=== PATIENT | male | born 1940 | race Caucasian/White ===

== ENCOUNTER → 2017-01-24 | Outpatient (CLI) | payer BC ==
[2016-02-15 14:15] VITALS: BP 125/69
[~2017-01-24] MED LIST: ALPR0.5T PO; ASPI-482 PO; CLOP75TA PO; GLIP5TAB10 PO; INSU100I27 SQ; INSU100V13 SQ; IOHEXOL 180 MG/ML 10 ML VIAL. ONE; LISI-338 PO; LISI2.5T PO; LOVA40TA2 PO; MELO15TA23 PO; METF-620 PO; MULT-658 PO; OMEG1CAP6 PO; OXYC-323 PO; OXYC-327 PO; PANT40TA3 PO; PIOG15TA42 PO; methylPREDNISolone ACETATE 40 MG/ML VIAL. ONE; methylPREDNISolone ACETATE 80 MG/ML VIAL. ONE
--- NOTE | 2017-01-24 15:22 | PAIN ---
DATE OF SERVICE: 01/24/2017 DIAGNOSES: Lumbar radiculopathy with lumbar spinal stenosis, degenerative disk disease and post-lumbar laminectomy syndrome. HISTORY OF PRESENT ILLNESS: The patient is a 76-year-old male who returns for followup, last seen 11/2015. The patient underwent lumbar epidural steroid injection at that time with very good results. The patient reports about 90% improvement. The pain has been returning now, but only over the past month or so and has been more noticeable with walking and standing, change in positions. It is becoming more noticeable in the low back bilaterally, somewhat worse on the right than the left, but present in the bilateral low back and into the bilateral posterior gluteus, sometimes into the thighs, but usually just in the low back and into the right leg itself posteriorly and laterally. The patient also has some medial aspect pain in the right thigh, again it is only intermittent. The patient reports no new motor or sensory deficits, no new bowel or bladder incontinence. The patient rates his pain as an 8 on a scale of 10 at its least and its worse. The patient reports an aching, sharp, dull, tight, again across the low back, slightly worse on the right than the left and in the lower extremities is noted. The patient reports it awakens him from sleep only very rarely. He sleeps fairly well, about 6 hours a night, not usually a problem for him with awakening from the sleep. The patient reports no loss of motor function, but some increased fatigability in the right leg with walking. PAST MEDICAL HISTORY: Significant for hypertension, arthritis, COPD, stroke and diabetes. PREVIOUS SURGERY: Includes bilateral knee replacements. Two shoulder replacements and 2 lumbar laminectomies. Aortic valve replacement and redo aortic valve replacement in the past. CURRENT MEDICATIONS: Completed in full, well documented and updated on the patient's chart. ALLERGIES: The patient has no known drug allergies. FAMILY HISTORY: Significant for diabetes only. SOCIAL HISTORY: The patient does not drink, does not smoke. He is single, currently retired and lives locally in [place], [place]. REVIEW OF SYSTEMS: The patient's review of systems is positive for those items mentioned in history of present illness. All systems reviewed and otherwise negative. It is complete, full and well documented on the patient's chart. PHYSICAL EXAMINATION: VITAL SIGNS: Today, the patient's blood pressure is 145/106, pulse 66, respirations are 20, temperature 97.6 degrees Fahrenheit, weight is 199 pounds, height is 5 feet 9 inches. GENERAL: The patient is awake, alert, oriented, appropriate, very pleasant demeanor. HEENT: Head shows normocephalic, atraumatic. Extraocular movements are intact and symmetrical. Oral cavity shows mucous membranes are moist and pink. Dentition is intact. NECK: Shows anterior throat supple without palpable lymphadenopathy noted. Swallow reflex is symmetrical. CHEST: Shows normal inspection. Breath sounds are clear to auscultation bilaterally. HEART: Shows S1 and S2 clear. ABDOMEN: Soft, nontender, nondistended. No palpable organomegaly is noted. No rebound or guarding demonstrated. BACK: The patient's back shows spine grossly midline, some flattening of lumbar lordotic curvature is noted with a well-healed surgical scar in the lumbar distribution. Lumbar paraspinous musculatures symmetrical, mildly tender to palpation bilaterally with deeper palpation, but only diffusely and throughout the upper, middle and lower distribution without radiation. No tenderness over the spinous processes, sacrum or sacroiliac regions with palpation. LOWER EXTREMITIES: Showed deep tendon reflexes at 1+ in the patellar and tendo calcaneus tendons are equal. Motor exam is strong with approximately 4/5 that is on the left with dorsiflexion, extension and 5/5 on the right. Peripheral pulses are 1+ posterior tibial and dorsalis pedis pulses. No peripheral edema is noted. No clubbing, no cyanosis. Lower extremities are warm and dry to touch, equal in color and appearance. The patient is able to stand, stand on her toes without difficulty or loss of balance, walks with a normal-appearing gait, does not appear to favor the right lower extremity ambulating, not using any assistive devices. Options were discussed with the patient and the patient's old chart was reviewed, as his current medication regimen updated, current review of systems updated today as well, and we will proceed with a lumbar epidural steroid injection today. He has done very well with these in the past. Risks were again discussed including, but not limited to bleeding, infection, possibility of epidural hematoma, subsequent neurologic compromise, dural puncture, headaches, spinal cord and/or nerve damage, side effects of steroid medication and poor results regarding pain control. The patient understands and wishes to proceed. The patient will return to clinic in approximately 2 weeks for followup. He was counseled on return appointment, activity levels and side effects to be aware of. DIAGNOSES: Lumbar radiculopathy with lumbar degenerative disk disease, spinal stenosis and post-lumbar laminectomy syndrome. PROCEDURE: Lumbar epidural steroid injection in translaminar approach at the L3-L4 level using C-arm fluoroscopic guidance under sterile prep and drape using a local anesthetic. MEDICATION INJECTED: Total of 120 mg Depo-Medrol, plus 10 mL of preservative-free normal saline, 2 mL of Isovue for contrast. CONDITION AT DISCHARGE: Stable. The patient tolerated procedure well, had no complications. LEXY ANTOINE MD DR: AMBER/celia JOB#: [id number] / [id number]
== END | disposition home or self-care (01) ==
LOC: PNCL 11:27
PROVIDERS: ATTEND Anesthesiology
DX: M54.16 Radiculopathy, lumbar region (principal); M96.1 Postlaminectomy syndrome, not elsewhere classified
CPT/HCPCS: 62323; J1030; J1040

== ENCOUNTER 2017-05-29 11:28 | Emergency (ER) | payer BC ==
[2017-05-29] MEDS: diphenhydrAMINE 50 MG/ML VIAL IVP ×2 (13:00)
[2017-05-29] MEDS: IV NORMAL SALINE 1000ML BAG 1,000 ML IV ×2 (13:00)
[2017-05-29] MEDS: KETOROLAC 30 MG/ML INJ. IV ×2 (13:00)
== END 2017-05-29 14:55 | disposition home or self-care (01) ==
LOC: ER 11:28
DX: R51 Headache (principal); E11.9 Type 2 diabetes mellitus without complications; K21.9 Gastro-esophageal reflux disease without esophagitis; I10 Essential (primary) hypertension; E78.00 Pure hypercholesterolemia, unspecified; Z86.73 Personal history of transient ischemic attack (TIA), and cerebral infarction without residual deficits; M19.90 Unspecified osteoarthritis, unspecified site; Z79.02 Long term (current) use of antithrombotics/antiplatelets
CPT/HCPCS: 70450; 93005; 96361; 96374; 96375; 99284-25; J1200; J1885; J7030

== ENCOUNTER → 2017-07-03 | Outpatient (CLI) | payer BC ==
[2017-07-03 09:08] LABS: ADD MAN DIFF? NO
[2017-07-03 09:19] LABS: BASO # 0.1 x10^3/uL (0.0-0.2); BASO % 1 % (0-3); EOS # 0.3 x10^3/uL (0.0-0.7); EOS % 4 % (0-3); HEMOGLOBIN 15.5 g/dL (13.0-17.5); LYMPH # 2.3 x10^3/uL (1.0-4.8); LYMPH % 29 % (24-48); MEAN CORPUSCULAR HEMOGLOBIN 28 pg (25-35); MEAN CORPUSCULAR HGB CONC 33 g/dL (31-37); MEAN CORPUSCULAR VOLUME 84 fL (79-100); MONO # 0.7 x10^3/uL (0.0-1.1); MONO % 9 % (0-9); NEUT # 4.5 x10^3uL (1.8-7.7); NEUT % 57 % (31-73); PLATELET COUNT 210 x10^3/uL (140-400); RED CELL DISTRIBUTION WIDTH 14.1 % (11.5-14.5); WHITE BLOOD COUNT 7.9 x10^3/uL (4.0-11.0)
[2017-07-03 09:42] LABS: ANION GAP 9 (6-14); BLOOD UREA NITROGEN 20 mg/dL (8-26); CALCIUM 9.5 mg/dL (8.5-10.1); CARBON DIOXIDE 27 mmol/L (21-32); CHLORIDE 102 mmol/L (98-107); GFR 72.6; GLUCOSE 186 mg/dL (70-99); POTASSIUM 4.5 mmol/L (3.5-5.1); SODIUM 138 mmol/L (136-145)
[2017-07-03] MEDS: REGADENOSON 0.4 MG/5 ML DISP.SYRIN. IV (10:38)
== END | disposition home or self-care (01) ==
LOC: NM 08:57
DX: I48.0 Paroxysmal atrial fibrillation (principal)
CPT/HCPCS: 36415; 78452; 80048; 85025; 93017; 96374; 96375; 96376; A9500; J2785

== ENCOUNTER 2017-08-20 08:24 | Observation (INO) | payer BC ==
[2017-08-20 09:03] LABS: ADD MAN DIFF? NO
[2017-08-20 09:08] LABS: BASO # 0.1 x10^3/uL (0.0-0.2); BASO % 1 % (0-3); EOS # 0.2 x10^3/uL (0.0-0.7); EOS % 3 % (0-3); HEMOGLOBIN 14.2 g/dL (13.0-17.5); LYMPH # 1.6 x10^3/uL (1.0-4.8); LYMPH % 23 % (24-48); MEAN CORPUSCULAR HEMOGLOBIN 29 pg (25-35); MEAN CORPUSCULAR HGB CONC 35 g/dL (31-37); MEAN CORPUSCULAR VOLUME 83 fL (79-100); MONO # 0.6 x10^3/uL (0.0-1.1); MONO % 9 % (0-9); NEUT # 4.6 x10^3uL (1.8-7.7); NEUT % 64 % (31-73); PLATELET COUNT 196 x10^3/uL (140-400); RED BLOOD COUNT 4.96 x10^6/uL (4.30-5.70); WHITE BLOOD COUNT 7.1 x10^3/uL (4.0-11.0)
[2017-08-20 09:14] LABS: ANION GAP 8 (6-14); BLOOD UREA NITROGEN 25 mg/dL (8-26); BUN/CREATININE RATIO 23 (6-20); CALCIUM 9.5 mg/dL (8.5-10.1); CARBON DIOXIDE 26 mmol/L (21-32); CHLORIDE 102 mmol/L (98-107); CREATININE 1.1 mg/dL (0.7-1.3); GFR 65.1; GLUCOSE 166 mg/dL (70-99); POTASSIUM 4.5 mmol/L (3.5-5.1); SODIUM 136 mmol/L (136-145)
[2017-08-20 09:19] LABS: ALBUMIN 3.8 g/dL (3.4-5.0); ALK PHOS 55 U/L (46-116); ALT (SGPT) 53 U/L (16-63); AST (SGOT) 26 U/L (15-37); TOTAL BILIRUBIN 0.7 mg/dL (0.2-1.0); TOTAL PROTEIN 7.5 g/dL (6.4-8.2)
[2017-08-20 09:20] LABS: PROTHROMBIN TIME PATIENT 12.8 SEC (11.7-14.0)
[2017-08-20] MEDS: IV NORMAL SALINE 1000ML BAG 1,000 ML IV ×2 (09:20→15:15)
[2017-08-20] MEDS: ONDANSETRON PF 4 MG/2 ML VIAL. IV (09:21)
[2017-08-20] MEDS: MECLIZINE HCL 12.5 MG TABLET. PO (09:21)
[2017-08-20 09:24] LABS: TROPONINI < 0.017 ng/mL (0.000-0.055)
[2017-08-20 09:26] LABS: THYROID STIM HORMONE (TSH) 1.706 uIU/mL (0.358-3.74)
[2017-08-20 09:28] LABS: NT-PRO BNP 60 pg/mL (0-449)
[2017-08-20 09:28] LABS: CKMB MASS 1.8 ng/mL (0.0-3.6); CREATINE KINASE 56 U/L (39-308)
[2017-08-20 10:12] LABS: BILIRUBIN,URINE NEGATIVE (NEG); CLARITY,URINE CLEAR; COLOR,URINE YELLOW; GLUCOSE,URINE NEGATIVE (NEG); NITRITE,URINE NEGATIVE (NEG); PROTEIN,URINE NEGATIVE (NEG-TRACE); UROBILINOGEN,URINE 0.2 mg/dL (0.2 mg/dL)
[2017-08-20 10:20] LABS: BARBITURATES NEG (NEG); BENZODIAZEPINES POS (NEG); CANNABINOIDS NEG (NEG); COCAINE NEG (NEG); METHADONE NEG (NEG); OPIATES NEG (NEG); PHENCYCLIDINE NEG (NEG)
[2017-08-20 10:23] LABS: BACTERIA,URINE FEW /HPF (0-FEW); RBC,URINE RARE /HPF (0-2); WBC,URINE RARE /HPF (0-4)
[2017-08-20 10:32] LABS: AMPHETAMINE/METHAMPHETAMINE NEG (NEG); ETHANOL, URINE NEG (NEG)
[2017-08-20] MEDS ORDERED: ONDANSETRON PF 4 MG/2 ML VIAL. IV (12:15)
[2017-08-20] MEDS: LISINOPRIL 10 MG TABLET PO (12:36)
[2017-08-20] MEDS ORDERED: ALPRAZolam 0.5 MG TABLET PO (13:30)
[2017-08-20 13:53] LABS: POC GLUCOSE 128 mg/dL (70-99)
[2017-08-20] MEDS: ASPIRIN ENTERIC COATED 81 MG TABLET.DR. PO (15:14)
[2017-08-20] MEDS: APIXABAN 5 MG TABLET. PO ×2 (15:14→20:48)
[2017-08-20] MEDS: CLOPIDOGREL BISULFATE 75 MG TABLET PO (15:14)
[2017-08-20] MEDS: PIOGLITAZONE 15 MG TABLET. PO (15:14)
[2017-08-20 17:31] LABS: POC GLUCOSE 154 mg/dL (70-99)
[2017-08-20 20:48] LABS: POC GLUCOSE 154 mg/dL (70-99)
[2017-08-20] MEDS: ATORVASTATIN CALCIUM 10 MG TABLET. PO (20:48)
[2017-08-20] MEDS: PANTOPRAZOLE 40 MG TABLET.DR. PO (20:48)
[2017-08-20] MEDS: OMEGA-3 FATTY ACIDS/FISH OIL 1,000 MG CAPSULE. PO (20:48)
[2017-08-21] MEDS: MULTIVITAMIN with MINERAL TABLET. PO (08:04)
[2017-08-21] MEDS: glipiZIDE 5 MG TABLET PO (08:04)
[2017-08-21] MEDS: OMEGA-3 FATTY ACIDS/FISH OIL 1,000 MG CAPSULE. PO (08:04)
[2017-08-21] MEDS: ASPIRIN ENTERIC COATED 81 MG TABLET.DR. PO (08:04)
[2017-08-21] MEDS: CLOPIDOGREL BISULFATE 75 MG TABLET PO (08:04)
[2017-08-21] MEDS: APIXABAN 5 MG TABLET. PO (08:04)
[2017-08-21] MEDS: PIOGLITAZONE 15 MG TABLET. PO (08:05)
[2017-08-21] MEDS: LISINOPRIL 5 MG TABLET. PO (08:05)
[2017-08-21] MEDS: MELOXICAM 7.5 MG TABLET PO (08:05)
[2017-08-21 08:44] LABS: POC GLUCOSE 161 mg/dL (70-99)
[2017-08-21 08:59] LABS: ADD MAN DIFF? NO
[2017-08-21 09:03] LABS: BASO # 0.1 x10^3/uL (0.0-0.2); BASO % 1 % (0-3); EOS # 0.2 x10^3/uL (0.0-0.7); EOS % 3 % (0-3); HEMATOCRIT 40.7 % (39.0-53.0); LYMPH # 1.2 x10^3/uL (1.0-4.8); LYMPH % 17 % (24-48); MEAN CORPUSCULAR HEMOGLOBIN 29 pg (25-35); MEAN CORPUSCULAR HGB CONC 34 g/dL (31-37); MEAN CORPUSCULAR VOLUME 83 fL (79-100); MONO # 0.5 x10^3/uL (0.0-1.1); MONO % 7 % (0-9); NEUT # 5.3 x10^3uL (1.8-7.7); NEUT % 73 % (31-73); PLATELET COUNT 174 x10^3/uL (140-400); RED CELL DISTRIBUTION WIDTH 13.7 % (11.5-14.5); WHITE BLOOD COUNT 7.3 x10^3/uL (4.0-11.0)
[2017-08-21 09:19] LABS: ALBUMIN 3.3 g/dL (3.4-5.0); ALBUMIN/GLOBULIN RATIO 0.9 (1.0-1.7); ALK PHOS 48 U/L (46-116); ALT (SGPT) 44 U/L (16-63); ANION GAP 11 (6-14); AST (SGOT) 19 U/L (15-37); BLOOD UREA NITROGEN 24 mg/dL (8-26); BUN/CREATININE RATIO 20 (6-20); CALCIUM 8.5 mg/dL (8.5-10.1); CARBON DIOXIDE 24 mmol/L (21-32); CHLORIDE 105 mmol/L (98-107); CREATININE 1.2 mg/dL (0.7-1.3); GFR 58.9; GLUCOSE 223 mg/dL (70-99); POTASSIUM 4.3 mmol/L (3.5-5.1); SODIUM 140 mmol/L (136-145); TOTAL BILIRUBIN 0.7 mg/dL (0.2-1.0); TOTAL PROTEIN 6.9 g/dL (6.4-8.2)
[2017-08-21 11:17] LABS: POC GLUCOSE 160 mg/dL (70-99)
== END 2017-08-21 13:54 | disposition home or self-care (01) ==
LOC: ER 08:24 → 5 SOUTH 11:58
DX: R42 Dizziness and giddiness (principal); I10 Essential (primary) hypertension; I35.0 Nonrheumatic aortic (valve) stenosis; E11.42 Type 2 diabetes mellitus with diabetic polyneuropathy; J44.9 Chronic obstructive pulmonary disease, unspecified; E78.00 Pure hypercholesterolemia, unspecified; M48.061 Spinal stenosis, lumbar region without neurogenic claudication; E78.5 Hyperlipidemia, unspecified; M19.90 Unspecified osteoarthritis, unspecified site; I48.91 Unspecified atrial fibrillation; K21.9 Gastro-esophageal reflux disease without esophagitis; Z82.0 Family history of epilepsy and other diseases of the nervous system; Z82.49 Family history of ischemic heart disease and other diseases of the circulatory system; Z83.3 Family history of diabetes mellitus; Z86.73 Personal history of transient ischemic attack (TIA), and cerebral infarction without residual deficits; Z95.2 Presence of prosthetic heart valve
CPT/HCPCS: 36415; 70450; 70551; 71045; 80053; 80307; 81001; 82553; 82962; 83735; 83880; 84443; 84484; 85025; 85610; 93005; 96361; 96374; 97166-GO; 99285; G0378; G0379; J2405; J7030; J8597

== ENCOUNTER → 2017-09-02 | Outpatient (CLI) | payer BC ==
[2017-09-02 10:17] LABS: ADD MAN DIFF? NO
[2017-09-02 10:31] LABS: BASO # 0.1 x10^3/uL (0.0-0.2); BASO % 1 % (0-3); EOS # 0.3 x10^3/uL (0.0-0.7); EOS % 4 % (0-3); HEMATOCRIT 42.6 % (39.0-53.0); HEMOGLOBIN 14.6 g/dL (13.0-17.5); LYMPH # 1.8 x10^3/uL (1.0-4.8); LYMPH % 23 % (24-48); MEAN CORPUSCULAR HEMOGLOBIN 28 pg (25-35); MEAN CORPUSCULAR HGB CONC 34 g/dL (31-37); MEAN CORPUSCULAR VOLUME 83 fL (79-100); MONO # 0.7 x10^3/uL (0.0-1.1); MONO % 8 % (0-9); NEUT # 5.1 x10^3uL (1.8-7.7); NEUT % 64 % (31-73); PLATELET COUNT 209 x10^3/uL (140-400); RED BLOOD COUNT 5.14 x10^6/uL (4.30-5.70)
[2017-09-02 10:42] LABS: ANION GAP 9 (6-14); BLOOD UREA NITROGEN 26 mg/dL (8-26); CALCIUM 9.2 mg/dL (8.5-10.1); CARBON DIOXIDE 26 mmol/L (21-32); CHLORIDE 102 mmol/L (98-107); CREATININE 1.1 mg/dL (0.7-1.3); GFR 65.1; GLUCOSE 293 mg/dL (70-99); POTASSIUM 4.6 mmol/L (3.5-5.1); SODIUM 137 mmol/L (136-145)
== END | disposition home or self-care (01) ==
LOC: LAB 10:00
DX: I48.0 Paroxysmal atrial fibrillation (principal)
CPT/HCPCS: 36415; 80048; 85025

== ENCOUNTER 2018-09-06 09:20 | Emergency (ER) | payer BC ==
[~2018-09-06] VITALS: Ht 175.3 cm; Wt 90.7 kg
[~2018-09-06 09:20] MED LIST changes: +APIX5TAB PO; -IOHEXOL 180 MG/ML 10 ML VIAL. ONE; +MELO7.5T29 PO; -METF-620 PO; +METF10007 PO; -OXYC-323 PO; -OXYC-327 PO; +OXYC1TAB15 PO; +OXYC1TAB19 PO; +TIZA4TAB PO; -methylPREDNISolone ACETATE 40 MG/ML VIAL. ONE; -methylPREDNISolone ACETATE 80 MG/ML VIAL. ONE
[2018-09-06 09:28] VITALS: BP 127/65
[2018-09-06] MEDS ORDERED: LIDOCAINE WITH 8.4% SOD BICARB 3 ML DISP.SYRIN. ONE (09:48)
--- NOTE | 2018-09-06 10:13 | PHYS DOC ---
Past Medical History Past Medical History: CVA, Diabetes-Type II, GERD, High Cholesterol, Hype rtension, TIA, Other Additional Past Medical Histor: osteoarthritis, back pain, cleft lip Past Surgical History: Knee Replacement Additional Past Surgical Histo: aoritic valve surgery, bilat shoulder surgery, bilat knee surgery Alcohol Use: None Drug Use: None Adult General Chief Complaint Chief Complaint: LACERATION/AVULSION HPI HPI Patient is a 77 year old medical presents with right thumb laceration, patient states his house is condemned and he was trying to clean it up and do some repairs. He states he was working on a window when the window broke and cut him on the right thumb. He is right-handed. Review of Systems Review of Systems Constitutional: Denies fever or chills [] Musculoskeletal: Denies back pain or joint pain [] Integument: Reports right thumb laceration Neurologic: Denies headache, focal weakness or sensory changes [] All other systems were reviewed and found to be within normal limits, except as documented in this note. Current Medications Current Medications Current Medications Medications (Trade) Dose Ordered Sig/[place] Start Time Stop Time Status Last Admin Dose Admin Lidocaine/Sodium Bicarbonate (Buffered Lidocaine 1%) 3 ml STK-MED ONCE 09/06/18 09:48 09/06/18 09:49 DC Allergies Allergies Allergies Coded Allergies Type Severity Reaction Last Updated Verified No Known Drug Allergies 05/14/17 No Physical Exam Physical Exam Constitutional: Well developed, well nourished, no acute distress, non-toxic appearance. [] Skin: Right thumb at the DIP joint with a laceration approximately 3 cm long, this no obvious tendon involvement. Patient able to flex and extend the finger at the PIP joint, DIP joints. Adequate radius sensation to the right thumb. Up refill less than 2 seconds the right thumb. +2 right radial pulse. Back: No tenderness, no CVA tenderness. [] Extremities: No tenderness, no cyanosis, no clubbing, ROM intact, no edema. [] Neurologic: Alert and oriented X 3, normal motor function, normal sensory function, no focal deficits noted. [] Psychologic: Affect normal, judgement normal, mood normal. [] Current Patient Data Vital Signs Vital Signs Date Time Temp Pulse Resp B/P (MAP) Pulse Ox O2 Delivery O2 Flow Rate FiO2 09/06/18 09:28 97.7 73 16 127/65 (85) 94 Room Air 97.7 EKG EKG [] Radiology/Procedures Radiology/Procedures Laceration/Wound Repair Wound Location: Right thumb laceration Wound's Depth, Shape: Horizontal Wound Length (cm): Approximately 3 cm Wound Explored: clean Irrigated w/ Saline (ccs): 250 Betadine Prep?: Y Anesthesia: 1% buffered lidocaine Volume Anesthetic (ccs): approx. 2 cc Wound Repaired With: Dissolvable gut Suture Size/Type: 5.0/interrupted sutures Number of Sutures: 7 Progress : Wound was covered with nonstick dressing Course & Med Decision Making Course & Med Decision Making Pertinent Labs and Imaging studies reviewed. (See chart for details) This is a 77-year-old male patient presented to the ED today with right thumb laceration, laceration was closed by me as noted in procedures. Tetanus is up-to-date. Wound care instructions and return precautions provided. Dragon Disclaimer Dragon Disclaimer This electronic medical record was generated, in whole or in part, using a voice recognition dictation system. Departure Departure Impression: Primary Impression: Finger laceration Disposition: 01 HOME, SELF-CARE Condition: STABLE Referrals: ROXIE CORNELIUS MD (PCP) follow up in 1-2 weeks as needed Patient Instructions: Fingertip Laceration Additional Instructions: You have a laceration to the right thumb that was closed with dissolvable stitches, they will fall off and disappear in the next 1-2 weeks. Keep the area clean and dry. Leave the dressing on for 24 hours, you can remove it tomorrow morning, apply Neosporin to the area twice a day. Monitor the area for any worsening conditions including but not limited to increased redness, warmth, yellow drainage from the area and return to the ED or see your own doctor if they occur. Problem Qualifiers Primary Impression: Finger laceration Encounter type: initial encounter Finger: thumb Damage to nail status: without damage Foreign body presence: without foreign body Laterality: right Qualified Codes: S61.011A - Laceration without foreign body of right thumb without damage to nail, initial encounter KAMLESH LIAO APRN September 06, 2018 10:13
[2018-09-06] MEDS ORDERED: LIDOCAINE WITH 8.4% SOD BICARB 3 ML DISP.SYRIN. INJ ONE (10:15)
== END 2018-09-06 10:23 | disposition home or self-care (01) ==
LOC: ER 09:20
DX: S61.011A Laceration without foreign body of right thumb without damage to nail, initial encounter (principal); E78.00 Pure hypercholesterolemia, unspecified; K21.9 Gastro-esophageal reflux disease without esophagitis; E11.9 Type 2 diabetes mellitus without complications; I10 Essential (primary) hypertension; Z86.73 Personal history of transient ischemic attack (TIA), and cerebral infarction without residual deficits; W26.8XXA Contact with other sharp object(s), not elsewhere classified, initial encounter; Y93.E9 Activity, other interior property and clothing maintenance; Y92.098 Other place in other non-institutional residence as the place of occurrence of the external cause; Y99.8 Other external cause status
CPT/HCPCS: 12002; 99283-25

== ENCOUNTER 2018-10-07 08:47 | Emergency (ER) | payer BC ==
[~2018-10-07] VITALS: Ht 175.3 cm; Wt 90.7 kg
[2018-10-07 09:25] VITALS: BP 149/67
--- NOTE | 2018-10-07 09:56 | PHYS DOC ---
Past Medical History Past Medical History: CVA, Diabetes-Type II, GERD, High Cholesterol, Hype rtension, TIA, Other Additional Past Medical Histor: osteoarthritis, back pain, cleft lip Past Surgical History: Knee Replacement Additional Past Surgical Histo: aoritic valve surgery, bilat shoulder surgery, bilat knee surgery Alcohol Use: None Drug Use: None Adult General Chief Complaint Chief Complaint: HAND PROBLEM HPI HPI 77-year-old male presents to ER via POV for complaints of right hand redness and swelling. Patient states he had a thorn in his right hand yesterday which he believes he completely removed and states he woke this morning having redness and swelling around site with foreign had been. Patient states site is tender on palpation. Patient denies fever, fatigue, or nausea and vomiting. Patient reports he is right handed. He reports history of diabetes and this morning's blood sugar 175. 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 Pt reports he is UTD on tetanus in past 5 yrs. Review of Systems Review of Systems Constitutional: Denies fever or chills [] Respiratory: Denies cough or shortness of breath [] Cardiovascular: No additional information not addressed in HPI [] Musculoskeletal: Reports rt hand tenderness at site where thorn was Integument: Reports redness/swelling top of rt hand Neurologic: Denies focal weakness or sensory changes [] All other systems were reviewed and found to be within normal limits, except as documented in this note. Current Medications Current Medications Current Medications Medications (Trade) Dose Ordered Sig/Katlin Start Time Stop Time Status Last Admin Dose Admin Mupirocin (Bactroban) 1 zana 1X ONCE 10/07/18 10:30 10/07/18 10:31 DC 10/07/18 10:45 1 ZANA Allergies Allergies Allergies Coded Allergies Type Severity Reaction Last Updated Verified No Known Drug Allergies 05/14/17 No Physical Exam Physical Exam Constitutional: Well developed, well nourished, no acute distress, non-toxic appearance. [] HENT: Normocephalic, atraumatic, oropharynx moist, nose normal. [] Eyes: Pupils equal, conjunctiva normal, no discharge. [] Neck: Normal range of motion, supple Cardiovascular:Heart rate regular Lungs & Thorax: Resp. equal/nonlabored Skin: Warm, dry, no rash. [] Back: Full ROM Extremities: No cyanosis, no clubbing, ROM intact/ 2+ radial rt upper extremity. Sm. scab dorsal surface of rt hand medial side just distal to wrist. Erythema/swelling surrounding site and tender on palp. Full ROM of rt hand/wrist. Erythema doesn't extend into fingers- no swelling in fingers Neurologic: Alert and oriented X 3, normal motor function, normal sensory function, no focal deficits noted. [] Psychologic: Affect normal, judgement normal, mood normal. [] Current Patient Data Vital Signs Vital Signs Date Time Temp Pulse Resp B/P (MAP) Pulse Ox O2 Delivery O2 Flow Rate FiO2 10/07/18 09:25 97.8 73 16 149/67 (94) 96 Room Air 97.8 EKG EKG [] Radiology/Procedures Radiology/Procedures PROCEDURE: HAND RIGHT 3V Examination: HAND RIGHT 3V History: None Comparison/Correlation: None Findings: Total 3 images the right hand were obtained. Old fracture deformities of the distal radial metaphysis and nonunion fracture deformity of the distal ulnar styloid are noted. No acute fracture. Generative narrowing of the second and third metacarpophalangeal joints noted. Linear density which is ill-defined involves the soft tissues at the fifth metacarpal bone distally and medially. This is evident on the oblique view. Soft tissue swelling at the dorsal aspect of the metacarpal bone level is evident on the lateral view. Impression: Old distal radial and ulnar fractures. Questionable density within soft tissues at the medial aspect of the fifth metacarpal bone level. Correlate for possibility of foreign body. Consider ultrasound exam for more complete assessment. Electronically signed by: Fabio Barnett MD (10/07/2018 10:20 AM) [id number] DICTATED and SIGNED BY: FABIO BARNETT MD DATE: 10/07/18 1020 Course & Med Decision Making Course & Med Decision Making Pertinent Imaging studies reviewed. (See chart for details) Pt was evaluated in the ER for concerns of rt hand infection following a thorn puncture yest. Xray was obtained with concerns of FB by 5th digit rt hand- on re-exam pt has no wounds and denies any other puncture wounds on rt hand. Offered admission for IV tx and further care- pt was adamant on being discharged home with plans to f/u with PCP for re-eval. Will have bactroban ointment and drsg applied. Pt advised on s&s to return to ER for and home wound care education provided. Pt was afebrile and PMS intact rt upper extremity. He was UTD on tetanus. Will provide pt with Rx for Keflex and he was advised on monitoring his BS closely. Discharge instructions were discussed. Pt to f/u with PCP for further care/re-eval and advised to return to ER with concerns. Dragon Disclaimer Dragon Disclaimer This electronic medical record was generated, in whole or in part, using a voice recognition dictation system. Departure Departure Impression: Primary Impression: Foreign body hand Additional Impression: Cellulitis of hand Disposition: HOME, SELF-CARE Condition: STABLE Referrals: ROXIE CORNELIUS MD (PCP) Patient Instructions: Cellulitis, Wood Splinters Additional Instructions: Apply cool compress to affected area every 3-4 hours for 20-30 minutes at a time. Monitor site for worsening condition and with concerns follow-up with your primary care physician or return to the ER. Apply Bactroban ointment 3 times daily to wound until improved. Applying a thin layer to the site. Tylenol and/or ibuprofen as needed for pain as directed on container. Scripts Cephalexin (KEFLEX) 500 Mg Capsule 1 CAP PO BID, #14 CAP 0 Refills Prov: OMA WALLACE APRN 10/07/18 Problem Qualifiers OMA WALLACE APRN Oct 07, 2018 09:55
--- NOTE | 2018-10-07 10:23 | RAD ---
Examination: HAND RIGHT 3V History: None Comparison/Correlation: None Findings: Total 3 images the right hand were obtained. Old fracture deformities of the distal radial metaphysis and nonunion fracture deformity of the distal ulnar styloid are noted. No acute fracture. Generative narrowing of the second and third metacarpophalangeal joints noted. Linear density which is ill-defined involves the soft tissues at the fifth metacarpal bone distally and medially. This is evident on the oblique view. Soft tissue swelling at the dorsal aspect of the metacarpal bone level is evident on the lateral view. Impression: Old distal radial and ulnar fractures. Questionable density within soft tissues at the medial aspect of the fifth metacarpal bone level. Correlate for possibility of foreign body. Consider ultrasound exam for more complete assessment. Electronically signed by: Fabio Styles MD (10/07/2018 10:20 AM) [id number]
[2018-10-07] MEDS ORDERED: MUPIROCIN 2 % TOPICAL CREAM 30GM TUBE. TP ONE (10:30)
[2018-10-07] MEDS ORDERED: CEPH-264 PO (10:45)
== END 2018-10-07 10:48 | disposition home or self-care (01) ==
LOC: ER 08:47
DX: S60.454A Superficial foreign body of right ring finger, initial encounter (principal); L03.113 Cellulitis of right upper limb; E11.9 Type 2 diabetes mellitus without complications; K21.9 Gastro-esophageal reflux disease without esophagitis; I10 Essential (primary) hypertension; E78.00 Pure hypercholesterolemia, unspecified; Z86.73 Personal history of transient ischemic attack (TIA), and cerebral infarction without residual deficits; X58.XXXA Exposure to other specified factors, initial encounter; Y93.89 Activity, other specified; Y92.89 Other specified places as the place of occurrence of the external cause; Y99.8 Other external cause status
CPT/HCPCS: 73130; 99284

== ENCOUNTER 2019-05-12 15:51 | Emergency (ER) | payer BC ==
[~2019-05-12] VITALS: Ht 177.8 cm; Wt 90.0 kg
[~2019-05-12 15:51] MED LIST changes: +CEPH-264 PO; -PANT40TA3 PO; +PANT40TA77 PO; -TIZA4TAB PO; +TIZA4TAB2 PO
[2019-05-12 16:36] LABS: BASO # 0.1 x10^3/uL (0.0-0.2); BASO % 1 % (0-3); EOS # 0.2 x10^3/uL (0.0-0.7); EOS % 3 % (0-3); HEMATOCRIT 41.4 % (39.0-53.0); HEMOGLOBIN 14.2 g/dL (13.0-17.5); LYMPH % 25 % (24-48); MEAN CORPUSCULAR HEMOGLOBIN 28 pg (25-35); MEAN CORPUSCULAR HGB CONC 34 g/dL (31-37); MEAN CORPUSCULAR VOLUME 82 fL (79-100); MONO # 0.8 x10^3/uL (0.0-1.1); MONO % 10 % (0-9); NEUT # 5.1 x10^3/uL (1.8-7.7); NEUT % 62 % (31-73); PLATELET COUNT 221 x10^3/uL (140-400); RED BLOOD COUNT 5.06 x10^6/uL (4.30-5.70); RED CELL DISTRIBUTION WIDTH 14.1 % (11.5-14.5); WHITE BLOOD COUNT 8.3 x10^3/uL (4.0-11.0)
[2019-05-12 16:45] LABS: PROTHROMBIN TIME PATIENT 13.2 SEC (11.7-14.0)
[2019-05-12 16:46] LABS: CALCIUM 9.7 mg/dL (8.5-10.1); CREATININE 1.1 mg/dL (0.7-1.3); GFR 64.7; POTASSIUM 4.6 mmol/L (3.5-5.1)
[2019-05-12 16:53] LABS: ALBUMIN 3.8 g/dL (3.4-5.0); TOTAL BILIRUBIN 0.4 mg/dL (0.2-1.0); TOTAL PROTEIN 7.5 g/dL (6.4-8.2)
--- NOTE | 2019-05-12 16:54 | EKG ---
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
--- NOTE | 2019-05-12 17:00 | PHYS DOC ---
Past Medical History Past Medical History: CVA, Diabetes-Type II, GERD, High Cholesterol, Hypertension, TIA, Other Additional Past Medical Histor: osteoarthritis, back pain, cleft lip Past Surgical History: Knee Replacement Additional Past Surgical Histo: aoritic valve surgery, bilat shoulder surgery, bilat knee surgery Alcohol Use: None Drug Use: None Adult General Chief Complaint Chief Complaint: DIZZY/LIGHT HEADED HPI HPI Patient is a 78 year old male who presents with left eye was sitting at his computer typing and he had a 15 second episode of dizziness. Patient states don't happen at one time and he has no other symptoms and no other complaints. He currently has no pain, no dizziness. He states he went to his eye doctor today for a checkup and they stated that he needed to go to the emergency room to be checked out because he had 3 strokes in the past. Review of Systems Review of Systems Neurologic: Dizziness x 1. Denies headache, focal weakness or sensory changes [] All other systems were reviewed and found to be within normal limits, except as documented in this note. Allergies Allergies Allergies Coded Allergies Type Severity Reaction Last Updated Verified No Known Drug Allergies 05/14/17 No Physical Exam Physical Exam Constitutional: Well developed, well nourished, no acute distress, non-toxic appearance. [] HENT: Normocephalic, atraumatic, bilateral external ears normal, oropharynx moist, no oral exudates, nose normal. [] Eyes: PERRLA, EOMI, conjunctiva normal, no discharge. [] Neck: Normal range of motion, no tenderness, supple, no stridor. [] Cardiovascular:Heart rate regular rhythm, no murmur [] Lungs & Thorax: Bilateral breath sounds clear to auscultation [] Abdomen: Bowel sounds normal, soft, no tenderness, no masses, no pulsatile masses. [] Skin: Warm, dry, no erythema, no rash. [] Back: No tenderness, no CVA tenderness. [] Extremities: No tenderness, no cyanosis, no clubbing, ROM intact, no edema. [] Neurologic: Alert and oriented X 3, normal motor function, normal sensory function, no focal deficits noted. [] Psychologic: Affect normal, judgement normal, mood normal. Normal physical exam.[] Current Patient Data Vital Signs Vital Signs Date Time Temp Pulse Resp B/P (MAP) Pulse Ox O2 Delivery O2 Flow Rate FiO2 05/12/19 16:15 97.6 70 18 204/90 (128) 96 Room Air 97.6 Lab Values Laboratory Tests Test 05/12/19 16:04 05/12/19 16:34 White Blood Count 8.3 x10^3/uL (4.0-11.0) Red Blood Count 5.06 x10^6/uL (4.30-5.70) Hemoglobin 14.2 g/dL (13.0-17.5) Hematocrit 41.4 % (39.0-53.0) Mean Corpuscular Volume 82 fL (79-100) Mean Corpuscular Hemoglobin 28 pg (25-35) Mean Corpuscular Hemoglobin Concent 34 g/dL (31-37) Red Cell Distribution Width 14.1 % (11.5-14.5) Platelet Count 221 x10^3/uL (140-400) Neutrophils (%) (Auto) 62 % (31-73) Lymphocytes (%) (Auto) 25 % (24-48) Monocytes (%) (Auto) 10 % (0-9) H Eosinophils (%) (Auto) 3 % (0-3) Basophils (%) (Auto) 1 % (0-3) Neutrophils # (Auto) 5.1 x10^3/uL (1.8-7.7) Lymphocytes # (Auto) 2.0 x10^3/uL (1.0-4.8) Monocytes # (Auto) 0.8 x10^3/uL (0.0-1.1) Eosinophils # (Auto) 0.2 x10^3/uL (0.0-0.7) Basophils # (Auto) 0.1 x10^3/uL (0.0-0.2) Prothrombin Time 13.2 SEC (11.7-14.0) Prothrombin Time INR 1.0 (0.8-1.1) Sodium Level 136 mmol/L (136-145) Potassium Level 4.6 mmol/L (3.5-5.1) Chloride Level 99 mmol/L (98-107) Carbon Dioxide Level 24 mmol/L (21-32) Anion Gap 13 (6-14) Blood Urea Nitrogen 29 mg/dL (8-26) H Creatinine 1.1 mg/dL (0.7-1.3) Estimated GFR (Cockcroft-Gault) 64.7 BUN/Creatinine Ratio 26 (6-20) H Glucose Level 243 mg/dL (70-99) H Calcium Level 9.7 mg/dL (8.5-10.1) Total Bilirubin 0.4 mg/dL (0.2-1.0) Aspartate Amino Transferase (AST) 21 U/L (15-37) Alanine Aminotransferase (ALT) 27 U/L (16-63) Alkaline Phosphatase 59 U/L (46-116) Troponin I Quantitative < 0.017 ng/mL (0.000-0.055) Total Protein 7.5 g/dL (6.4-8.2) Albumin 3.8 g/dL (3.4-5.0) Albumin/Globulin Ratio 1.0 (1.0-1.7) Ammonia < 10 mcmol/L (11-34) L Laboratory Tests 05/12/19 16:04 Laboratory Tests 05/12/19 16:04 EKG EKG Sinus Rhythm and no STEMI[] Interpretation Time: [address] Garcia Radiology/Procedures Radiology/Procedures [] Impressions: [facility] [address] [place] [address] IMAGING REPORT Signed PATIENT: MAGI MAE ACCOUNT: [id number] : 1940 LOCATION: ER AGE: 78 SEX: M EXAM STATUS: REG ER ORD. PHYSICIAN: CAMILA MOREIRA APRN REASON: AMS PROCEDURE: CT HEAD WO CONTRAST Exam: CT head INDICATION: Altered mental status TECHNIQUE: Sequential axial images through the head were obtained without the administration of IV contrast. Comparisons: 08/20/2017 FINDINGS: No focal parenchymal lesion or hemorrhage is identified. There is no midline shift or sulcal effacement. Patchy hypodensity in the periventricular white matter, which is overall similar when compared to the prior study. Numerous chronic infarcts are also noted. No acute vascular territory infarction is identified. Lynne-white distinction is preserved. The ventricular system is within normal limits without compression hydrocephalus. The basal cisterns are well maintained. The visualized portions of the paranasal sinuses and mastoid air cells are well-pneumatized. No acute fractures. IMPRESSION: Extensive chronic ischemic changes without acute intracranial abnormality identified. Exposure: One or more of the following in the visualized dose reduction techniques were utilized for this examination: 1. Automated exposure control 2. Adjustment of the MA and/or KV according to patient size Use of iterative of reconstructive technique Electronically signed by: Shanna Albert MD (05/12/2019 5:04 PM) [facility] [place] DICTATED and SIGNED BY: SHANNA ALBERT MD DATE: 05/12/191703 Course & Med Decision Making Course & Med Decision Making Alert and oriented. Speaks in full clear sentences. PERRLA. Ambulatory with steady gait. Patient denies any pain. Vital Signs within normal limits. Patient denies any pain, chest pain, nausea, vomiting, abdominal pain, numbness or tingling, visual changes, dysuria, shortness of breath, weakness, headache, dizziness. Lungs are clear to auscultation in all lobes. No extremity edema. Chest xray read by Dr Garcia as cardiomegly and no obvious acute findings. CT head showed no acute findings. Blood work unremarkable. I have gone over findings and care plan with Dr. Garcia and she states to discharge the patient and have him follow-up with his primary care provider. Dragon Disclaimer Dragon Disclaimer This electronic medical record was generated, in whole or in part, using a voice recognition dictation system. NIHSS Stroke Scale NIH Stroke Scale: NIH Stroke Scale Response (Comments) Value Level of Consciousness: 0 Alert/Responsive 0 LOC Questions: 0 Answers both correctly 0 LOC Commands: 0 Performs both tasks 0 Best Gaze: 0 Normal 0 Visual: 0 No visual loss 0 Facial Palsy: 0 Normal, symmetrical 0 Motor - Left Arm 0 No drift 0 Motor - Right Arm 0 No drift 0 Motor - Left Leg 0 No drift 0 Motor: Right Leg 0 No drift 0 Limb Ataxia: 0 Absent 0 Sensory: 0 No loss 0 Best Language: 0 Normal 0 Dysathria: 0 Normal 0 Extinction and Inattention: 0 Normal 0 Total 0 Departure Departure Impression: Primary Impression: Dizziness Disposition: 01 HOME, SELF-CARE Condition: STABLE Referrals: ROXIE CORNELIUS MD (PCP) Patient Instructions: Dizziness, [id number] Additional Instructions: Follow-up with your primary care provider. Drink plenty of fluids. Continue ramon ing all your home medications. CAMILA MOREIRA APRN 21, 2020 17:00
--- NOTE | 2019-05-12 17:07 | RAD ---
Exam: CT head INDICATION: Altered mental status TECHNIQUE: Sequential axial images through the head were obtained without the administration of IV contrast. Comparisons: 08/20/2017 FINDINGS: No focal parenchymal lesion or hemorrhage is identified. There is no midline shift or sulcal effacement. Patchy hypodensity in the periventricular white matter, which is overall similar when compared to the prior study. Numerous chronic infarcts are also noted. No acute vascular territory infarction is identified. Lynne-white distinction is preserved. The ventricular system is within normal limits without compression hydrocephalus. The basal cisterns are well maintained. The visualized portions of the paranasal sinuses and mastoid air cells are well-pneumatized. No acute fractures. IMPRESSION: Extensive chronic ischemic changes without acute intracranial abnormality identified. Exposure: One or more of the following in the visualized dose reduction techniques were utilized for this examination: 1. Automated exposure control 2. Adjustment of the MA and/or KV according to patient size Use of iterative of reconstructive technique Electronically signed by: Shanna Greenwood MD (05/12/2019 5:04 PM) [facility]
--- NOTE | 2019-05-12 17:26 | RAD ---
PORTABLE CHEST 1V Clinical History: Acute mental status change Technique: AP view of the chest was obtained at 05/12/2019 4:18 PM. Comparison: August 20, 2014. Findings: The cardiomediastinal silhouette is normal. The pulmonary vasculature is normal. Linear opacities in the left lung base are likely discoid atelectasis. There is prior bilateral total shoulder arthroplasty. There are median sternotomy wires. Impression: No evidence of an acute cardiopulmonary process. Electronically signed by: Chase Blevins III, MD (05/12/2019 5:23 PM) [facility]
[2019-05-12 17:30] VITALS: BP 182/85
[2019-05-12 17:38] LABS: BILIRUBIN,URINE NEGATIVE (NEG); CLARITY,URINE CLEAR; COLOR,URINE YELLOW; NITRITE,URINE NEGATIVE (NEG); PROTEIN,URINE NEGATIVE (NEG-TRACE); UROBILINOGEN,URINE 0.2 mg/dL (0.2 mg/dL)
[2019-05-12 17:50] LABS: BACTERIA,URINE 0 /HPF (0-FEW); RBC,URINE 0 /HPF (0-2); WBC,URINE RARE /HPF (0-4)
== END 2019-05-12 18:04 | disposition home or self-care (01) ==
LOC: ER 15:51
DX: R42 Dizziness and giddiness (principal); E11.9 Type 2 diabetes mellitus without complications; K21.9 Gastro-esophageal reflux disease without esophagitis; E78.00 Pure hypercholesterolemia, unspecified; I10 Essential (primary) hypertension; Z86.73 Personal history of transient ischemic attack (TIA), and cerebral infarction without residual deficits
CPT/HCPCS: 36415; 70450; 71045; 80053; 81001; 82140; 84484; 85025; 85610; 93005; 99285-25

== ENCOUNTER 2019-06-15 21:06 | Emergency (ER) | payer BC ==
[~2019-06-15] VITALS: Ht 165.1 cm; Wt 80.0 kg
--- NOTE | 2019-06-15 21:46 | PHYS DOC ---
Past Medical History Past Medical History: CVA, Diabetes-Type II, GERD, High Cholesterol, Hypertension, TIA, Other Additional Past Medical Histor: osteoarthritis, back pain, cleft lip (JAVIER BAER APRN) Past Surgical History: Knee Replacement Additional Past Surgical Histo: aoritic valve surgery, bilat shoulder surgery, bilat knee surgery (JAVIER BAER APRN) Smoking Status: Never Smoker Alcohol Use: None Drug Use: None (JAVEIR BAER APRN) Attending Signature I have participated in the care of this patient and I have reviewed and agree with all pertinent clinical information above including history, exam, and recommendations. (KHOA DIAS MD) Adult General Chief Complaint Chief Complaint: LOWER EXTREMITY SWELLING HPI HPI Patient is a 78 year old male who presents to the emergency department with complaints of swelling in both of his lower extremities today. Patient denies any redness, warmth, or drainage from the areas. He reports that a tree branch fell on top of his left foot 3 days ago when he was working in his yard. He denies any inability bear weight on the affected foot. Patient denies any chest pain, shortness of breath, fever, cough, nausea, vomiting, diarrhea, abdominal pain, palpitations, dizziness, or headache. He currently rates his pain a 1/10 on the pain scale. Patient states he went to [facility] today and purchases some compression stockings for his legs. He reports that they seemed to help with the swelling. Patient states he has been outside working in his yard all day when he noticed that his legs were swollen. (JAVIER BAER APRN) Review of Systems Review of Systems Complete systems were reviewed and found to be within normal limits, except as documented in this note. (JAVIER BAER APRN) Allergies Allergies Allergies Coded Allergies Type Severity Reaction Last Updated Verified No Known Drug Allergies 05/14/17 No (KHOA DIAS MD) Physical Exam Physical Exam Constitutional: Well developed, well nourished, no acute distress, non-toxic appearance. [] HENT: Normocephalic, atraumatic, bilateral external ears normal, oropharynx moist, no oral exudates, nose normal. [] Eyes: PERRLA, EOMI, conjunctiva normal, no discharge. [] Neck: Normal range of motion, no tenderness, supple, no stridor. [] Cardiovascular:Heart rate regular rhythm, no murmur [] Lungs & Thorax: Bilateral breath sounds clear to auscultation, Respirations even and unlabored, no retractions, no respiratory distress [] Abdomen: Bowel sounds normal, soft, no tenderness Skin: Warm, dry, no erythema, no rash. [] Back: No tenderness Extremities:BLE: No tenderness, no cyanosis, no clubbing, ROM intact, no edema; L foot: bruising noted to 2nd, 3rd, and 4th toes, non-tender, no edema [] Neurologic: Alert and oriented X 3, no focal deficits noted. [] Psychologic: Affect normal, judgement normal, mood normal. [] (JAVIER BAER APRN) Current Patient Data Vital Signs Vital Signs Date Time Temp Pulse Resp B/P (MAP) Pulse Ox O2 Delivery O2 Flow Rate FiO2 06/15/19 21:20 97.9 74 16 126/66 (86) 95 Room Air 97.9 (KHOA DIAS MD) Lab Values Laboratory Tests Test 06/15/19 21:28 White Blood Count 7.1 x10^3/uL (4.0-11.0) Red Blood Count 4.77 x10^6/uL (4.30-5.70) Hemoglobin 13.4 g/dL (13.0-17.5) Hematocrit 39.1 % (39.0-53.0) Mean Corpuscular Volume 82 fL (79-100) Mean Corpuscular Hemoglobin 28 pg (25-35) Mean Corpuscular Hemoglobin Concent 34 g/dL (31-37) Red Cell Distribution Width 15.0 % (11.5-14.5) H Platelet Count 212 x10^3/uL (140-400) Neutrophils (%) (Auto) 59 % (31-73) Lymphocytes (%) (Auto) 27 % (24-48) Monocytes (%) (Auto) 9 % (0-9) Eosinophils (%) (Auto) 4 % (0-3) H Basophils (%) (Auto) 1 % (0-3) Neutrophils # (Auto) 4.1 x10^3/uL (1.8-7.7) Lymphocytes # (Auto) 1.9 x10^3/uL (1.0-4.8) Monocytes # (Auto) 0.7 x10^3/uL (0.0-1.1) Eosinophils # (Auto) 0.3 x10^3/uL (0.0-0.7) Basophils # (Auto) 0.1 x10^3/uL (0.0-0.2) Sodium Level 138 mmol/L (136-145) Potassium Level 4.5 mmol/L (3.5-5.1) Chloride Level 103 mmol/L (98-107) Carbon Dioxide Level 24 mmol/L (21-32) Anion Gap 11 (6-14) Blood Urea Nitrogen 21 mg/dL (8-26) Creatinine 1.3 mg/dL (0.7-1.3) Estimated GFR (Cockcroft-Gault) 53.4 BUN/Creatinine Ratio 16 (6-20) Glucose Level 229 mg/dL (70-99) H Calcium Level 8.8 mg/dL (8.5-10.1) Total Bilirubin 0.4 mg/dL (0.2-1.0) Aspartate Amino Transferase (AST) 20 U/L (15-37) Alanine Aminotransferase (ALT) 34 U/L (16-63) Alkaline Phosphatase 53 U/L (46-116) LM-Wpn-Q-Type Natriuretic Peptide 901 pg/mL (0-449) H Total Protein 7.0 g/dL (6.4-8.2) Albumin 3.6 g/dL (3.4-5.0) Albumin/Globulin Ratio 1.1 (1.0-1.7) Laboratory Tests 06/15/19 21:28 Laboratory Tests 06/15/19 21:28 (KHOA DIAS MD) Lab Values Laboratory Tests Test 06/15/19 21:28 White Blood Count 7.1 x10^3/uL (4.0-11.0) Red Blood Count 4.77 x10^6/uL (4.30-5.70) Hemoglobin 13.4 g/dL (13.0-17.5) Hematocrit 39.1 % (39.0-53.0) Mean Corpuscular Volume 82 fL (79-100) Mean Corpuscular Hemoglobin 28 pg (25-35) Mean Corpuscular Hemoglobin Concent 34 g/dL (31-37) Red Cell Distribution Width 15.0 % (11.5-14.5) H Platelet Count 212 x10^3/uL (140-400) Neutrophils (%) (Auto) 59 % (31-73) Lymphocytes (%) (Auto) 27 % (24-48) Monocytes (%) (Auto) 9 % (0-9) Eosinophils (%) (Auto) 4 % (0-3) H Basophils (%) (Auto) 1 % (0-3) Neutrophils # (Auto) 4.1 x10^3/uL (1.8-7.7) Lymphocytes # (Auto) 1.9 x10^3/uL (1.0-4.8) Monocytes # (Auto) 0.7 x10^3/uL (0.0-1.1) Eosinophils # (Auto) 0.3 x10^3/uL (0.0-0.7) Basophils # (Auto) 0.1 x10^3/uL (0.0-0.2) Sodium Level 138 mmol/L (136-145) Potassium Level 4.5 mmol/L (3.5-5.1) Chloride Level 103 mmol/L (98-107) Carbon Dioxide Level 24 mmol/L (21-32) Anion Gap 11 (6-14) Blood Urea Nitrogen 21 mg/dL (8-26) Creatinine 1.3 mg/dL (0.7-1.3) Estimated GFR (Cockcroft-Gault) 53.4 BUN/Creatinine Ratio 16 (6-20) Glucose Level 229 mg/dL (70-99) H Calcium Level 8.8 mg/dL (8.5-10.1) Total Bilirubin 0.4 mg/dL (0.2-1.0) Aspartate Amino Transferase (AST) 20 U/L (15-37) Alanine Aminotransferase (ALT) 34 U/L (16-63) Alkaline Phosphatase 53 U/L (46-116) ZN-Gwg-V-Type Natriuretic Peptide 901 pg/mL (0-449) H Total Protein 7.0 g/dL (6.4-8.2) Albumin 3.6 g/dL (3.4-5.0) Albumin/Globulin Ratio 1.1 (1.0-1.7) Laboratory Tests 06/15/19 21:28 Laboratory Tests 06/15/19 21:28 (JAVIER BAER APRN) EKG EKG [] (JAVIER BAER APRN) Radiology/Procedures Radiology/Procedures PROCEDURE: FOOT LEFT 3V Exam: Left foot 3 views INDICATION: Swelling and bruising after treatment branch dropped on foot 3 days ago TECHNIQUE: Frontal, lateral and oblique views of the left foot Comparisons: None FINDINGS: Bone mineralization is normal. No acute or healed fractures. Soft tissues are unremarkable. Joint spaces are well-maintained. IMPRESSION: No acute osseous abnormality.[] (JAVIER BAER APRN) Course & Med Decision Making Course & Med Decision Making Pertinent Labs and Imaging studies reviewed. (See chart for details) Pt is a 78-year-old male who presented to the emergency room with complaints of bilateral lower leg swelling after being in his yard all day today. On exam there is bruising noted to the left second through fourth toes, patient reports that he dropped a tree branch on top of his left foot 3 days ago. X-ray of the left foot was negative for any acute fracture. Patient denied any shortness of breath, wheezing, chest pain, or palpitations. CBC is unremarkable, CMP revealed a glucose of 229, patient is a type II diabetic, his BNP was 901. Physical exam is not concerning for cellulitis, edema, or DVT. Current patient follow up with primary care provider for further evaluation of intermittent leg swelling, recommended continued wearing of compression stockings, rest, and elevation of lower extremities as needed to reduce swelling at this time. There was no edema present on exam. Pt verbalized an understanding of home care, medications, follow-up, and return to ED instructions and was in agreement with the plan of care. [] (JAVIER BAER APRN) Dragon Disclaimer Dragon Disclaimer This electronic medical record was generated, in whole or in part, using a voice recognition dictation system. (JAVIER BAER APRN) Departure Departure Impression: Primary Impression: Swelling of both lower extremities Disposition: HOME, SELF-CARE Condition: STABLE Referrals: ROXIE CORNELIUS MD (PCP) Patient Instructions: Peripheral Edema Additional Instructions: Recommend that you wear compression stockings when up for extended periods of time. Rest and elevate you legs to help reduce swelling. Follow up with your primary care doctor if symptoms persist, return to the ER if symptoms worsen. JAVIER BAER APRN Jun 15, 2019 21:46 KHOA DIAS MD Jun 15, 2019 23:27
[2019-06-15 21:53] LABS: BASO # 0.1 x10^3/uL (0.0-0.2); BASO % 1 % (0-3); EOS # 0.3 x10^3/uL (0.0-0.7); EOS % 4 % (0-3); HEMATOCRIT 39.1 % (39.0-53.0); HEMOGLOBIN 13.4 g/dL (13.0-17.5); LYMPH # 1.9 x10^3/uL (1.0-4.8); LYMPH % 27 % (24-48); MEAN CORPUSCULAR HEMOGLOBIN 28 pg (25-35); MEAN CORPUSCULAR HGB CONC 34 g/dL (31-37); MEAN CORPUSCULAR VOLUME 82 fL (79-100); MONO # 0.7 x10^3/uL (0.0-1.1); MONO % 9 % (0-9); NEUT # 4.1 x10^3/uL (1.8-7.7); NEUT % 59 % (31-73); PLATELET COUNT 212 x10^3/uL (140-400); RED BLOOD COUNT 4.77 x10^6/uL (4.30-5.70); WHITE BLOOD COUNT 7.1 x10^3/uL (4.0-11.0)
[2019-06-15 22:01] LABS: CALCIUM 8.8 mg/dL (8.5-10.1); CREATININE 1.3 mg/dL (0.7-1.3); GFR 53.4; POTASSIUM 4.5 mmol/L (3.5-5.1)
[2019-06-15 22:07] LABS: TOTAL BILIRUBIN 0.4 mg/dL (0.2-1.0)
[2019-06-15 22:13] LABS: ALBUMIN 3.6 g/dL (3.4-5.0); ALBUMIN/GLOBULIN RATIO 1.1 (1.0-1.7)
--- NOTE | 2019-06-15 22:46 | RAD ---
Exam: Left foot 3 views INDICATION: Swelling and bruising after treatment branch dropped on foot 3 days ago TECHNIQUE: Frontal, lateral and oblique views of the left foot Comparisons: None FINDINGS: Bone mineralization is normal. No acute or healed fractures. Soft tissues are unremarkable. Joint spaces are well-maintained. IMPRESSION: No acute osseous abnormality. Electronically signed by: Shanna Greenwood MD (06/15/2019 10:43 PM) [id number]
[2019-06-15 23:00] VITALS: BP 114/48
== END 2019-06-15 23:45 | disposition home or self-care (01) ==
LOC: ER 21:06
DX: S90.122A Contusion of left lesser toe(s) without damage to nail, initial encounter (principal); R22.43 Localized swelling, mass and lump, lower limb, bilateral; K21.9 Gastro-esophageal reflux disease without esophagitis; E11.9 Type 2 diabetes mellitus without complications; E78.00 Pure hypercholesterolemia, unspecified; I10 Essential (primary) hypertension; Z86.73 Personal history of transient ischemic attack (TIA), and cerebral infarction without residual deficits; Z98.890 Other specified postprocedural states; M19.90 Unspecified osteoarthritis, unspecified site; W18.39XA Other fall on same level, initial encounter; Y93.89 Activity, other specified; Y92.096 Garden or yard of other non-institutional residence as the place of occurrence of the external cause; Y99.8 Other external cause status
CPT/HCPCS: 36415; 73630; 80053; 83880; 85025; 99285-25

== ENCOUNTER 2019-06-19 12:59 | Emergency (ER) | payer BC ==
[~2019-06-19] VITALS: Ht 170.2 cm; Wt 87.7 kg
[2019-06-19 13:25] VITALS: BP 147/68
[2019-06-19] MEDS ORDERED: SULF1TAB24 PO (13:55)
--- NOTE | 2019-06-19 13:56 | PHYS DOC ---
Past Medical History Past Medical History: CVA, Diabetes-Type II, GERD, High Cholesterol, Hype rtension, TIA, Other Additional Past Medical Histor: osteoarthritis, back pain, cleft lip Past Surgical History: Knee Replacement Additional Past Surgical Histo: aoritic valve surgery, bilat shoulder surgery, bilat knee surgery Smoking Status: Never Smoker Alcohol Use: None Drug Use: None Adult General Chief Complaint Chief Complaint: LACERATION/AVULSION HPI HPI Patient is a 78 year old male with history of diabetes type 2, hypertension, high cholesterol, CVA, who presents to the ED today complaining of laceration on the right great toe that he believes he sustained yesterday though he does not remember any injury. He states he went to cardiac rehabilitation today and was informed his right great toe was swollen and red. Review of Systems Review of Systems Constitutional: Denies fever or chills [] Musculoskeletal: Denies back pain or joint pain [] Integument: Reports right great toe laceration Neurologic: Denies headache, focal weakness or sensory changes [] All other systems were reviewed and found to be within normal limits, except as documented in this note. Allergies Allergies Allergies Coded Allergies Type Severity Reaction Last Updated Verified No Known Drug Allergies 05/14/17 No Physical Exam Physical Exam Constitutional: Well developed, well nourished, no acute distress, non-toxic appearance. [] Skin: Right great toe and foot were examined, no obvious lacerations were noted. There is small amount of swelling and redness around the right great toe nail bed suspicious of an ingrown infected toe. The great toe is warm, there is no fluctuance. +2 right pedal pulse. Back: No tenderness, no CVA tenderness. [] Extremities: No tenderness, no cyanosis, no clubbing, ROM intact, no edema. [] Neurologic: Alert and oriented X 3, normal motor function, normal sensory function, no focal deficits noted. [] Psychologic: Affect normal, judgement normal, mood normal. [] Current Patient Data Vital Signs Vital Signs Date Time Temp Pulse Resp B/P (MAP) Pulse Ox O2 Delivery O2 Flow Rate FiO2 06/19/19 13:25 97.5 71 20 147/68 (94) 98 Room Air 97.5 EKG EKG [] Radiology/Procedures Radiology/Procedures [] Course & Med Decision Making Course & Med Decision Making Pertinent Labs and Imaging studies reviewed. (See chart for details) Patient has infected ingrown right great toenail. Discharged on Bactrim. Follow- up with PCP in 1-2 weeks. Tetanus up-to-date. Norberto Disclaimer Norberto Disclaimer This electronic medical record was generated, in whole or in part, using a voice recognition dictation system. Departure Departure Impression: Primary Impression: Ingrown toenail with infection Disposition: HOME, SELF-CARE Condition: STABLE Referrals: ROXIE CORNELIUS MD (PCP) follow up in 1-2 weeks Patient Instructions: Infected Ingrown Toenail Additional Instructions: Your right great toe has no obvious laceration. You have infection to the right great toe. Take the prescribed antibiotics until completed. Follow-up with your doctor in 1-2 weeks. Try to soak the right great toe in warm water with Epsom salts twice a day. Scripts Sulfamethoxazole/Trimethoprim (BACTRIM DS TABLET) 1 Each Tablet 1 TAB PO BID for 10 Days, #20 TAB 0 Refills Prov: KAMLESH LIAO APRN 06/19/19 KAMLESH LIAO APRN Jun 19, 2019 13:56
== END 2019-06-19 14:13 | disposition home or self-care (01) ==
LOC: ER 12:59
DX: L60.0 Ingrowing nail (principal); E11.9 Type 2 diabetes mellitus without complications; K21.9 Gastro-esophageal reflux disease without esophagitis; E78.00 Pure hypercholesterolemia, unspecified; I10 Essential (primary) hypertension; Z86.73 Personal history of transient ischemic attack (TIA), and cerebral infarction without residual deficits
CPT/HCPCS: 99283

== ENCOUNTER 2019-10-06 14:56 | Emergency (ER) | payer BC, MEDICARE ==
[~2019-10-06] VITALS: Ht 177.8 cm; Wt 90.9 kg
[~2019-10-06 14:56] MED LIST changes: +SULF1TAB24 PO
[2019-10-06 15:38] LABS: BASO # 0.1 x10^3/uL (0.0-0.2); BASO % 1 % (0-3); EOS # 0.1 x10^3/uL (0.0-0.7); EOS % 2 % (0-3); HEMOGLOBIN 13.6 g/dL (13.0-17.5); LYMPH # 1.9 x10^3/uL (1.0-4.8); LYMPH % 23 % (24-48); MEAN CORPUSCULAR HEMOGLOBIN 28 pg (25-35); MEAN CORPUSCULAR HGB CONC 34 g/dL (31-37); MEAN CORPUSCULAR VOLUME 82 fL (79-100); MONO # 0.8 x10^3/uL (0.0-1.1); MONO % 9 % (0-9); NEUT # 5.5 x10^3/uL (1.8-7.7); NEUT % 66 % (31-73); PLATELET COUNT 240 x10^3/uL (140-400); RED BLOOD COUNT 4.88 x10^6/uL (4.30-5.70); RED CELL DISTRIBUTION WIDTH 14.6 % (11.5-14.5); WHITE BLOOD COUNT 8.4 x10^3/uL (4.0-11.0)
[2019-10-06 15:48] LABS: CREATININE 1.3 mg/dL (0.7-1.3); GFR 53.4; POTASSIUM 4.7 mmol/L (3.5-5.1)
[2019-10-06 15:51] LABS: PROTHROMBIN TIME PATIENT 14.8 SEC (11.7-14.0)
[2019-10-06 15:54] LABS: ALBUMIN 3.9 g/dL (3.4-5.0); ALBUMIN/GLOBULIN RATIO 1.1 (1.0-1.7); MAGNESIUM 1.7 mg/dL (1.8-2.4); TOTAL BILIRUBIN 0.6 mg/dL (0.2-1.0); TOTAL PROTEIN 7.3 g/dL (6.4-8.2)
[2019-10-06] MEDS ORDERED: IOHEXOL 300 MG/ML 100ML VIAL. IV ONE ×2 (16:30)
[2019-10-06] MEDS ORDERED: CONTRAST GIVEN. MC PRN (16:30)
--- NOTE | 2019-10-06 17:00 | RAD ---
CT scan of the head without contrast 10/06/2019 Clinical History: Fall. Patient is on anticoagulation therapy. Technique: Unenhanced, contiguous, 5 mm axial sections were obtained through the head. One or more of the following individualized dose reduction techniques were utilized for this study: 1. Automated exposure control. 2. Adjustment of the mA and/or kV according to patient size. 3. Use of iterative reconstruction technique. Findings: Comparison study is dated 05/12/2019. There is generalized parenchymal atrophy. Areas of decreased attenuation are seen within the periventricular and subcortical white matter of both cerebral hemispheres consistent with areas of small vessel ischemic disease. No acute parenchymal abnormality is seen. No extra-axial fluid collection is noted. No skull fracture is seen. Impression: No acute intracranial abnormality is seen. CT scan of the cervical spine without contrast 10/06/2019 Clinical history: Neck pain post fall. Technique: Unenhanced, contiguous, 0.625 mm axial sections were obtained through the cervical spine. Axial, coronal and sagittal reconstructed images were obtained. One or more of the following individualized dose reduction techniques were utilized for this study: 1. Automated exposure control. 2. Adjustment of the mA and/or kV according to patient size. 3. Use of iterative reconstruction technique. Findings: Sagittal and coronal reconstructed images demonstrate very mild lateral curvature of the cervical spine, convex to the left. Degenerative changes consisting of varying degrees of disc space narrowing, vertebral endplate sclerosis and minimal to mild anterior and posterior vertebral body osteophyte formation are seen involving the mid and lower cervical disc spaces. Moderate atrophy calcification of the carotid bifurcations is seen bilaterally. No fracture or subluxation of the cervical vertebrae seen. Degenerative changes are seen involving the uncovertebral and facet joints throughout the mid and lower cervical disc spaces. Impression: No fracture or subluxation of the cervical vertebra is identified. Electronically signed by: Ricardo Vallecillo MD (10/06/2019 4:57 PM) [id number]
--- NOTE | 2019-10-06 17:24 | RAD ---
EXAM: CT CHEST, ABDOMEN, AND PELVIS WITH CONTRAST INDICATION: Left lateral chest wall pain and upper abdominal pain, status post fall from height. COMPARISON: None TECHNIQUE: Helical CT imaging performed of the chest, abdomen and pelvis after administration of 60 mL Omnipaque 300 intravenous contrast. Sagittal and coronal reformats were obtained. One or more of the following individualized dose reduction techniques were utilized for this examination: 1. Automated exposure control 2. Adjustment of the mA and/or kV according to patient size 3. Use of iterative reconstruction technique. FINDINGS: CHEST: Streak artifact from shoulder prostheses limits evaluation at the level of the thoracic inlet. Thyroid gland and thoracic inlet: Thyroid gland is unremarkable. There are some secretions in the trachea at the level the thoracic inlet. Heart and great vessels: The heart is mildly enlarged. Scattered calcified coronary artery atherosclerosis. No pericardial effusion. There are surgical changes of aortic valve replacement. The thoracic aorta is enlarged measuring 4.5 cm in the ascending portion. No evidence of aortic dissection. There is moderate calcified atherosclerosis of the aorta. Mediastinum and arabella: No lymphadenopathy. No evidence of mediastinal hemorrhage. Lungs and pleura: Mild atelectasis in the lung bases. There is calcified granuloma in the right middle lobe with adjacent noncalcified tree-in-bud nodules (image [id number], series 2). No pulmonary contusion. No pleural effusion or pneumothorax. Chest wall and axillae: Normal. Bones: Surgical changes of median sternotomy. There is degenerative disc disease in the mid to lower thoracic spine. No acute osseous abnormality in the chest. ABDOMEN AND PELVIS: Liver: Normal. Gallbladder/Biliary Tree: Normal. Pancreas: Mild fatty atrophy of the pancreas. Spleen: Few calcified splenic granulomas, otherwise normal. Adrenal Glands: Normal. Kidneys/Ureters/Bladder: The kidneys are normal in size and enhance symmetrically. A 1.3 cm hypodense lesion in the inferior right renal pole with slightly greater than fluid density, likely a minimally complicated cyst. No hydronephrosis. Ureters and bladder are normal. Reproductive Organs: Normal. Stomach, small bowel, and colon: Stomach and small bowel are normal. There is sigmoid diverticulosis. The colon is otherwise unremarkable. Vasculature: The abdominal aorta is normal in caliber. There is moderate calcified aortoiliac atherosclerosis. Inferior vena cava is normal in appearance. Lymph Nodes: No lymphadenopathy. Peritoneum and retroperitoneum: There is no free fluid or free air. Bones: No acute fracture of the abdomen and pelvis. Severe lumbar degenerative disc disease with mild curvature of the lumbar spine. IMPRESSION: 1. No traumatic injury in the chest, abdomen, or pelvis. 2. Mild cardiomegaly. Surgical changes of median sternotomy and aortic valve replacement. The ascending thoracic aorta is enlarged measuring 4.5 cm. 3. Moderate calcified aortoiliac atherosclerosis. 4. Few tree-in-bud nodules in the right middle lobe, likely postinfectious/inflammatory. 5. Sigmoid diverticulosis. Electronically signed by: Magali Albrecht MD (10/06/2019 5:22 PM) [id number]
[2019-10-06 17:55] VITALS: BP 188/80
[2019-10-06] MEDS ORDERED: TRAM50TA PO (18:41)
--- NOTE | 2019-10-06 18:41 | PHYS DOC ---
Past Medical History Past Medical History: CVA, Diabetes-Type II, GERD, High Cholesterol, Hypertension, TIA, Other Additional Past Medical Histor: osteoarthritis, back pain, cleft lip Past Surgical History: Knee Replacement Additional Past Surgical Histo: aoritic valve surgery, bilat shoulder surgery, bilat knee surgery Smoking Status: Never Smoker Alcohol Use: Occasionally Drug Use: None General Adult EDM: Chief Complaint: RIB PAIN HPI: HPI: Patient is a 78 year old male presents with report of mechanical fall off of a trailer that he was working on this morning. Patient reports striking left side of his chest. Reports has had significant amount of pain to his left lower rib cage which was worse with deep inspiration. Patient denies head trauma or neck pain. Patient does however use Eliquis secondary to aortic valve surgery. Denies nausea or vomiting. Patient does report he went to go see his PCP today (Dr. Dahl) and was seen in the office but was instructed to present to the ER for possible rib fracture. Patient was given a left arm sling by his PCPs office for comfort. Review of Systems: Review of Systems: Constitutional: Denies fever or chills Eyes: Denies redness or eye pain HENT: Denies nasal congestion or sore throat Respiratory: Denies cough; reports shortness of breath and pleuritic pain Cardiovascular: Reports left lateral chest wall pain; denies palpitations GI: Reports upper left abdominal pain; denies nausea or vomiting : Denies dysuria or hematuria Musculoskeletal: Denies back pain or joint pain Integument: Denies rash or skin lesions Neurologic: Denies headache, focal weakness or sensory changes Complete systems were reviewed and found to be within normal limits, except as documented in this note. Current Medications: Current Medications Medications (Trade) Dose Ordered Sig/Katlin Start Time Stop Time Status Last Admin Dose Admin Info (CONTRAST GIVEN -- Rx MONITORING) 1 each PRN DAILY PRN 10/06/19 16:30 10/08/19 16:29 Iohexol (Omnipaque 300 Mg/ml) 60 ml 1X ONCE 10/06/19 16:30 10/06/19 16:31 DC Allergies: Allergies: Allergies Coded Allergies Type Severity Reaction Last Updated Verified No Known Drug Allergies 05/14/17 No Physical Exam: PE: Constitutional: Well developed, well nourished, no acute distress, non-toxic appearance HENT: Normocephalic, atraumatic Eyes: PERRL, EOMI, conjunctiva normal, no discharge Neck: Normal range of motion, no midline tenderness, paraspinal tenderness noted, supple Cardiovascular: Heart rate normal, regular rhythm Lungs & Thorax: Bilateral breath sounds clear to auscultation, no wheezing, left lower lateral chest wall pain Abdomen: Soft, left upper quadrant tenderness; pelvis stable and nontender Skin: Warm, dry, no erythema, no rash Back: Left lower thoracic paraspinal tenderness, left CVA tenderness Extremities: No deformity, ROM intact, no edema Neurologic: Alert and oriented X 3, normal motor function, normal sensory function, no focal deficits noted Psychologic: Affect normal, judgment normal Current Patient Data: Labs: Laboratory Tests Test 10/06/19 15:25 White Blood Count 8.4 x10^3/uL (4.0-11.0) Red Blood Count 4.88 x10^6/uL (4.30-5.70) Hemoglobin 13.6 g/dL (13.0-17.5) Hematocrit 40.0 % (39.0-53.0) Mean Corpuscular Volume 82 fL (79-100) Mean Corpuscular Hemoglobin 28 pg (25-35) Mean Corpuscular Hemoglobin Concent 34 g/dL (31-37) Red Cell Distribution Width 14.6 % (11.5-14.5) H Platelet Count 240 x10^3/uL (140-400) Neutrophils (%) (Auto) 66 % (31-73) Lymphocytes (%) (Auto) 23 % (24-48) L Monocytes (%) (Auto) 9 % (0-9) Eosinophils (%) (Auto) 2 % (0-3) Basophils (%) (Auto) 1 % (0-3) Neutrophils # (Auto) 5.5 x10^3/uL (1.8-7.7) Lymphocytes # (Auto) 1.9 x10^3/uL (1.0-4.8) Monocytes # (Auto) 0.8 x10^3/uL (0.0-1.1) Eosinophils # (Auto) 0.1 x10^3/uL (0.0-0.7) Basophils # (Auto) 0.1 x10^3/uL (0.0-0.2) Prothrombin Time 14.8 SEC (11.7-14.0) H Prothrombin Time INR 1.2 (0.8-1.1) H Activated Partial Thromboplast Time 34 SEC (24-38) Sodium Level 137 mmol/L (136-145) Potassium Level 4.7 mmol/L (3.5-5.1) Chloride Level 102 mmol/L (98-107) Carbon Dioxide Level 25 mmol/L (21-32) Anion Gap 10 (6-14) Blood Urea Nitrogen 30 mg/dL (8-26) H Creatinine 1.3 mg/dL (0.7-1.3) Estimated GFR (Cockcroft-Gault) 53.4 BUN/Creatinine Ratio 23 (6-20) H Glucose Level 108 mg/dL (70-99) H Calcium Level 9.0 mg/dL (8.5-10.1) Magnesium Level 1.7 mg/dL (1.8-2.4) L Total Bilirubin 0.6 mg/dL (0.2-1.0) Aspartate Amino Transferase (AST) 22 U/L (15-37) Alanine Aminotransferase (ALT) 31 U/L (16-63) Alkaline Phosphatase 47 U/L (46-116) Total Protein 7.3 g/dL (6.4-8.2) Albumin 3.9 g/dL (3.4-5.0) Albumin/Globulin Ratio 1.1 (1.0-1.7) Laboratory Tests 10/06/19 15:25 Laboratory Tests 10/06/19 15:25 Vital Signs: Vital Signs Date Time Temp Pulse Resp B/P (MAP) Pulse Ox O2 Delivery O2 Flow Rate FiO2 10/06/19 17:55 68 188/80 (116) 97 Room Air 10/06/19 15:04 97.8 16 97.8 EKG: EKG: [] Radiology/Procedures: Radiology/Procedures: PROCEDURE: CT HEAD AND CERVICAL SPINE WO CT scan of the head without contrast 10/06/2019 Clinical History: Fall. Patient is on anticoagulation therapy. Technique: Unenhanced, contiguous, 5 mm axial sections were obtained through the head. One or more of the following individualized dose reduction techniques were utilized for this study: 1. Automated exposure control. 2. Adjustment of the mA and/or kV according to patient size. 3. Use of iterative reconstruction technique. Findings: Comparison study is dated 05/12/2019. There is generalized parenchymal atrophy. Areas of decreased attenuation are seen within the periventricular and subcortical white matter of both cerebral hemispheres consistent with areas of small vessel ischemic disease. No acute parenchymal abnormality is seen. No extra-axial fluid collection is noted. No skull fracture is seen. Impression: No acute intracranial abnormality is seen. CT scan of the cervical spine without contrast 10/06/2019 Clinical history: Neck pain post fall. Technique: Unenhanced, contiguous, 0.625 mm axial sections were obtained through the cervical spine. Axial, coronal and sagittal reconstructed images were obtained. One or more of the following individualized dose reduction techniques were utilized for this study: 1. Automated exposure control. 2. Adjustment of the mA and/or kV according to patient size. 3. Use of iterative reconstruction technique. Findings: Sagittal and coronal reconstructed images demonstrate very mild lateral curvature of the cervical spine, convex to the left. Degenerative changes consisting of varying degrees of disc space narrowing, vertebral endplate sclerosis and minimal to mild anterior and posterior vertebral body osteophyte formation are seen involving the mid and lower cervical disc spaces. Moderate atrophy calcification of the carotid bifurcations is seen bilaterally. No fracture or subluxation of the cervical vertebrae seen. Degenerative changes are seen involving the uncovertebral and facet joints throughout the mid and lower cervical disc spaces. Impression: No fracture or subluxation of the cervical vertebra is identified. Electronically signed by: Ricardo Vallecillo MD (10/06/2019 4:57 PM) [id number] PROCEDURE: CT CHEST ABD PELVIS W/CONTRAST INDICATION: Left lateral chest wall pain and upper abdominal pain, status post fall from height. COMPARISON: None TECHNIQUE: Helical CT imaging performed of the chest, abdomen and pelvis after administration of 60 mL Omnipaque 300 intravenous contrast. Sagittal and coronal reformats were obtained. One or more of the following individualized dose reduction techniques were utilized for this examination: 1. Automated exposure control 2. Adjustment of the mA and/or kV according to patient size 3. Use of iterative reconstruction technique. FINDINGS: CHEST: Streak artifact from shoulder prostheses limits evaluation at the level of the thoracic inlet. Thyroid gland and thoracic inlet: Thyroid gland is unremarkable. There are some secretions in the trachea at the level the thoracic inlet. Heart and great vessels: The heart is mildly enlarged. Scattered calcified coronary artery atherosclerosis. No pericardial effusion. There are surgical changes of aortic valve replacement. The thoracic aorta is enlarged measuring 4.5 cm in the ascending portion. No evidence of aortic dissection. There is moderate calcified atherosclerosis of the aorta. Mediastinum and arabella: No lymphadenopathy. No evidence of mediastinal hemorrhage. Lungs and pleura: Mild atelectasis in the lung bases. There is calcified granuloma in the right middle lobe with adjacent noncalcified tree-in-bud nodules (image [id number], series 2). No pulmonary contusion. No pleural effusion or pneumothorax. Chest wall and axillae: Normal. Bones: Surgical changes of median sternotomy. There is degenerative disc disease in the mid to lower thoracic spine. No acute osseous abnormality in the chest. ABDOMEN AND PELVIS: Liver: Normal. Gallbladder/Biliary Tree: Normal. Pancreas: Mild fatty atrophy of the pancreas. Spleen: Few calcified splenic granulomas, otherwise normal. Adrenal Glands: Normal. Kidneys/Ureters/Bladder: The kidneys are normal in size and enhance symmetrically. A 1.3 cm hypodense lesion in the inferior right renal pole with slightly greater than fluid density, likely a minimally complicated cyst. No hydronephrosis. Ureters and bladder are normal. Reproductive Organs: Normal. Stomach, small bowel, and colon: Stomach and small bowel are normal. There is sigmoid diverticulosis. The colon is otherwise unremarkable. Vasculature: The abdominal aorta is normal in caliber. There is moderate calcified aortoiliac atherosclerosis. Inferior vena cava is normal in appearance. Lymph Nodes: No lymphadenopathy. Peritoneum and retroperitoneum: There is no free fluid or free air. Bones: No acute fracture of the abdomen and pelvis. Severe lumbar degenerative disc disease with mild curvature of the lumbar spine. IMPRESSION: 1. No traumatic injury in the chest, abdomen, or pelvis. 2. Mild cardiomegaly. Surgical changes of median sternotomy and aortic valve replacement. The ascending thoracic aorta is enlarged measuring 4.5 cm. 3. Moderate calcified aortoiliac atherosclerosis. 4. Few tree-in-bud nodules in the right middle lobe, likely postinfectious/inflammatory. 5. Sigmoid diverticulosis. Electronically signed by: Magali Albrecht MD (10/06/2019 5:22 PM) [id number] Course & Med Decision Making: Course & Med Decision Making Pertinent Labs and Imaging studies reviewed. (See chart for details) Patient presents with report of mechanical trip and fall off of a trailer with subsequent left lateral chest wall pain. Seen by his PCP with concern for possible rib fracture. Patient is also on Eliquis. Patient neurologically intact. Given blood thinner CT imaging of head obtained. Without acute process. CT cervical spine/chest/abdomen without acute injury. Ice applied. Pain addressed. Incentive spirometer provided with instruction to prevent atelectasis. Patient stable for discharge with outpatient follow-up with PCP. Discussed findi ngs and plan with patient, who acknowledges understanding and agreement. Pearlon Disclaimer: Norberto Disclaimer: This electronic medical record was generated, in whole or in part, using a voice recognition dictation system. Departure Departure Impression: Primary Impression: Fall Qualified Codes: W19.XXXA - Unspecified fall, initial encounter Additional Impression: Chest wall contusion Qualified Codes: S20.212A - Contusion of left front wall of thorax, initial encounter Disposition: HOME, SELF-CARE Condition: STABLE Referrals: ROXIE DAHL MD (PCP) Patient Instructions: Blunt Chest Trauma, Chest Contusion, [id number], Fall Prevention and Home Safety, [id number], Incentive Spirometer Scripts Tramadol Hcl (TRAMADOL HCL) 50 Mg Tablet 50 MG PO Q6HRS PRN for PAIN, #14 TAB Prov: ROXIE ORTIZ DO 10/06/19 Justicifation of Admission Dx: Justifications for Admission: Justification of Admission Dx: N/A ROXIE ORTIZ DO Oct 06, 2019 18:41
== END 2019-10-06 18:45 | disposition home or self-care (01) ==
LOC: ER 14:56
DX: S20.212A Contusion of left front wall of thorax, initial encounter (principal); R51 Headache; M54.2 Cervicalgia; R10.10 Upper abdominal pain, unspecified; E11.9 Type 2 diabetes mellitus without complications; K57.90 Diverticulosis of intestine, part unspecified, without perforation or abscess without bleeding; K21.9 Gastro-esophageal reflux disease without esophagitis; E78.00 Pure hypercholesterolemia, unspecified; I10 Essential (primary) hypertension; Z86.73 Personal history of transient ischemic attack (TIA), and cerebral infarction without residual deficits; W17.89XA Other fall from one level to another, initial encounter; Y93.89 Activity, other specified; Y92.89 Other specified places as the place of occurrence of the external cause; Y99.8 Other external cause status
CPT/HCPCS: 36415; 70450; 71260; 72125; 74177; 80053; 83735; 85025; 85610; 85730; 99285; Q9967

== ENCOUNTER 2019-12-18 15:33 | Emergency (ER) | payer BC ==
[~2019-12-18] VITALS: Ht 180.3 cm; Wt 98.0 kg
[~2019-12-18 15:33] MED LIST changes: +TRAM50TA PO
[2019-12-18 17:33] VITALS: BP 165/79
--- NOTE | 2019-12-18 18:13 | RAD ---
ELBOW RIGHT 3V History: Reason: fall pain / Spl. Instructions: / History: Technique: 3 views right elbow. Comparison: None. Findings: Normal alignment. No fracture. Mild elbow degenerative changes involving the likely nodule clear and radiocapitellar joints. Posterior elbow soft tissue swelling. No significant elbow joint effusion. Well-corticated ossification adjacent to the medial epicondyle, likely related to prior trauma or degenerative changes. Partially imaged postoperative changes extending into the mid humerus. Impression: 1. No acute osseous abnormality. 2. Posterior elbow soft tissue swelling. 3. Mild elbow DJD. Electronically signed by: Jorge A Carpenter DO (12/18/2019 6:10 PM) [facility]ANN
--- NOTE | 2019-12-18 18:33 | PHYS DOC ---
Past Medical History Past Medical History: Diabetes-Type II Additional Past Medical Histor: osteoarthritis, back pain, cleft lip (KAMLESH LIAO APRN) Past Surgical History: Knee Replacement Additional Past Surgical Histo: aoritic valve surgery, bilat shoulder surgery, bilat knee surgery (KAMLESH LIAO APRN) Smoking Status: Never Smoker Alcohol Use: None Drug Use: None (KAMLESH LIAO APRN) General Adult EDM: Chief Complaint: ELBOW PROBLEM HPI: HPI: Patient is a 79 year old male who presents the ED today complaining of 8 out of 10 right elbow pain that began 3 days ago after he fell getting out of his vehicle. Patient denies any loss of consciousness. Denies hitting his head on the ground, denies any neck pain. Patient describes the pain as sharp and intermittent worse on touching the region. (KAMLESH LIAO APRN) Review of Systems: Review of Systems: Constitutional: Denies fever or chills. [] Musculoskeletal: Reports right elbow pain Integument: Denies rash. [] Neurologic: Denies headache, focal weakness or sensory changes. [] Psychiatric: Denies depression or anxiety. [] (KAMLESH LIAO APRN) Heart Score: Risk Factors: Risk Factors: DM, Current or recent (<one month) smoker, HTN, HLP, family history of CAD, obesity. Risk Scores: Score 0 - 3: 2.5% MACE over next 6 weeks - Discharge Home Score 4 - 6: 20.3% MACE over next 6 weeks - Admit for Clinical Observation Score 7 - 10: 72.7% MACE over next 6 weeks - Early Invasive Strategies (KAMLESH LIAO APRN) Allergies: Allergies: Allergies Coded Allergies Type Severity Reaction Last Updated Verified No Known Drug Allergies 05/14/17 No (KAMLESH LIAO APRN) Physical Exam: PE: Constitutional: Well developed, well nourished, no acute distress, non-toxic appearance. [] Skin: Warm, dry, no erythema, no rash. [] Back: No tenderness, no CVA tenderness. [] Extremities: Right elbow with no obvious deformity, soft tissue swelling noted diffusely on the posterior aspect of the elbow. Tenderness on palpation of the olecranon process. Full range of motion to the right elbow including plantarflexion and dorsiflexion of the right forearm. Flexion and extension of the right forearm. Adequate radial, medial, ulnar sensation to the right upper extremity. +2 right radial pulse. Neurologic: Alert and oriented X 3, normal motor function, normal sensory function, no focal deficits noted. [] Psychologic: Affect normal, judgement normal, mood normal. [] (KAMLESH LIAO APRN) Current Patient Data: Vital Signs: Vital Signs Date Time Temp Pulse Resp B/P (MAP) Pulse Ox O2 Delivery O2 Flow Rate FiO2 12/18/19 17:33 98.2 76 20 165/79 (107) 98 Room Air 98.2 (KAMLESH LIAO APRN) EKG: EKG: [] (KAMLESH LIAO APRN) Radiology/Procedures: Radiology/Procedures: []PROCEDURE: ELBOW RIGHT 3V ELBOW RIGHT 3V History: Reason: fall pain / Spl. Instructions: / History: Technique: 3 views right elbow. Comparison: None. Findings: Normal alignment. No fracture. Mild elbow degenerative changes involving the likely nodule clear and radiocapitellar joints. Posterior elbow soft tissue swelling. No significant elbow joint effusion. Well-corticated ossification adjacent to the medial epicondyle, likely related to prior trauma or degenerative changes. Partially imaged postoperative changes extending into the mid humerus. Impression: 1. No acute osseous abnormality. 2. Posterior elbow soft tissue swelling. 3. Mild elbow DJD. Electronically signed by: Jorge A Carpenter DO (12/18/2019 6:10 PM) [facility] DICTATED and SIGNED BY: JORGE A CARPENTER DO DATE: 12/18/191809 (KAMLESH LIAO APRN) Course & Med Decision Making: Course & Med Decision Making Pertinent Labs and Imaging studies reviewed. (See chart for details) This is a 79-year-old male patient presenting to the ED today with right elbow pain status post falling 4 days ago. Right elbow x-rays interpreted by radiologist were negative for any acute findings, noted for DJD and some soft tissue swelling. Patient was discharged to home. Provided orthopedic doctor for follow-up. Provided a sling to the right upper extremity applied by the ED RN, neurovascular exam is intact. Ice elevation encouraged. Follow-up with orthopedic doctor in 1 week if pain persist (KAMLESH LIOA APRN) Dragon Disclaimer: Dragon Disclaimer: This electronic medical record was generated, in whole or in part, using a voice recognition dictation system. (KAMLESH LIAO APRN) Departure Departure Impression: Primary Impression: Fall from standing Qualified Codes: W19.XXXA - Unspecified fall, initial encounter Additional Impression: Contusion of right elbow Qualified Codes: S50.01XA - Contusion of right elbow, initial encounter Disposition: HOME, SELF-CARE Condition: STABLE Referrals: ROXIE CORNELIUS MD (PCP) MEKHI MORGAN MD Follow-up in 1 to 2 weeks Patient Instructions: Contusion, [id number] Additional Instructions: You were evaluated in the emergency room for right elbow contusion. Your right elbow x-rays are negative for any acute findings. Try to ice and elevate the extremity. Follow-up with the provided orthopedic doctor in 1 to 2 weeks if pain persist. You can take [id number] pain relievers as needed Justicifation of Admission Dx: Justifications for Admission: Justification of Admission Dx: N/A (KAMLESH LIAO APRN) Attending Signature Attending Signature I was personally available for consult in the emergency department. I have reviewed the chart and agree with the documentation as recorded by the NICOLE including the assessment, treatment plan and disposition. (DWIGHT ESTES DO) KAMLESH LIAO APRN Dec 18, 2019 18:33 DWIGHT ESTES DO Dec 19, 2019 06:36
== END 2019-12-18 18:47 | disposition home or self-care (01) ==
LOC: ER 15:33
DX: S50.01XA Contusion of right elbow, initial encounter (principal); R20.2 Paresthesia of skin; R60.0 Localized edema; E11.9 Type 2 diabetes mellitus without complications; Z98.890 Other specified postprocedural states; W18.39XA Other fall on same level, initial encounter; Y93.89 Activity, other specified; Y92.89 Other specified places as the place of occurrence of the external cause; Y99.8 Other external cause status
CPT/HCPCS: 73080; 99284; A4565

== ENCOUNTER → 2020-02-05 | Outpatient (CLI) | payer BC ==
[2020-02-05 13:31] LABS: CHOLESTEROL/HDL RATIO 3.6
--- NOTE | 2020-02-05 16:25 | CARD ---
MR#: [id number] Date of Study: 02/05/2020 Ordering Physician: DIGNA PERRY, Referring Physician: DIGNA PERRY, Tech: Argentina Lowe APPROVED REPORT EXAM: Two-dimensional and M-mode echocardiogram with Doppler and color Doppler. Other Information Quality : AverageHR: 82bpm INDICATION Aortic Valve Disease Aortic Valve Replacement RISK FACTORS Diabetes 2D DIMENSIONS RVDd3.7 (2.9-3.5cm)Left Atrium(2D)3.4 (1.6-4.0cm) IVSd1.3 (0.7-1.1cm)Aortic Root(2D)4.1 (2.0-3.7cm) LVDd5.1 (3.9-5.9cm)LVOT Diameter2.2 (1.8-2.4cm) PWd1.4 (0.7-1.1cm)LVDs3.4 (2.5-4.0cm) FS (%) 33.6 %SV78.4 ml Aortic Valve AoV Peak Bebeto.107.4cm/sAoV VTI21.4cm AO Peak GR.4.6mmHgLVOT Peak Bebeto.76.5cm/s LVOT VTI 15.65cmAO Mean GR.3mmHg INNA (VMAX)2.21wv1YYA (VTI)2.89cm2 Mitral Valve MV E Nhotphid25.1cm/sMV DECEL [id number] MV A Lrxmhjrk35.3cm/sMV E Mean Gr.1mmHg MV QTF091egW/A Ratio0.5 MVA (PHT)1.78cm2 TDI E/Lateral E'7.9E/Medial E'7.0 Pulmonary Valve PV Peak Pmvwkova98.6cm/sPV Peak Grad.3mmHg Tricuspid Valve TR P. Rnwukomu791vx/sRAP EUIXSNCF7esQp TR Peak Gr.22xlVyGKNV83niPn Pulmonary Vein S1 Qcneytey49.7cm/sD2 Xagjqqfn15.5cm/s PVa grdwgzun316peep LEFT VENTRICLE The left ventricle is normal size. There is mild concentric left ventricular hypertrophy. The left ve ntricular systolic function is normal and the ejection fraction is within normal range. The Ejection Fraction is 55-60%. Septal motion consistent with conduction abnormality. Transmitral Doppler flow pa ttern is Grade I-abnormal relaxation pattern. RIGHT VENTRICLE The right ventricle is normal size. There is normal right ventricular wall thickness. The right ventr icular systolic function is normal. ATRIA The left atrium size is normal. The right atrium is borderline dilated. The interatrial septum is int act with no evidence for an atrial septal defect or patent foramen ovale as noted on 2-D or Doppler i maging. AORTIC VALVE Doppler and Color Flow revealed trace aortic regurgitation. There is no significant aortic valvular s tenosis. Calculated aortic valve area is 1.83 cm2 with maximum pressure gradient of 8 mmHg and mean p ressure gradient of 5 mmHg. The prosthetic aortic valve appears normal. MITRAL VALVE The mitral valve is normal in structure and function. There is no evidence of mitral valve prolapse. There is no mitral valve stenosis. Doppler and Color-flow revealed trace mitral regurgitation. TRICUSPID VALVE The tricuspid valve is not well visualized. Doppler and Color Flow revealed trace tricuspid regurgita tion with an estimated PAP of 27 mmHg. There is no tricuspid valve stenosis. PULMONIC VALVE The pulmonic valve is not well visualized. Doppler and Color Flow revealed trace pulmonic valvular re gurgitation. GREAT VESSELS The aortic root is mildly enlarged measuring 4.10 cm. The IVC is normal in size and collapses >50% wi th inspiration. PERICARDIAL EFFUSION There is no evidence of significant pericardial effusion. Critical Notification Critical Value: No <Conclusion> The left ventricle is normal size. The left ventricular systolic function is normal and the ejection fraction is within normal range. The Ejection Fraction is 55-60%. There is mild concentric left ventricular hypertrophy. The prosthetic aortic valve appears normal. Doppler and Color Flow revealed trace aortic regurgitation. There is no significant aortic valvular stenosis. Calculated aortic valve area is 1.83 cm2 with maximum pressure gradient of 8 mmHg and mean pressure g radient of 5 mmHg. Doppler and Color-flow revealed trace mitral regurgitation. Doppler and Color Flow revealed trace tricuspid regurgitation with an estimated PAP of 27 mmHg. The aortic root is mildly enlarged measuring 4.10 cm. Signed by : Parveen Spangler MD Electronically Approved : 02/05/2020 16:25:27
--- NOTE | 2020-02-05 19:20 | RAD ---
MR#: [id number] Date of Study: 02/05/2020 Ordering Physician: DIGNA PERRY, Referring Physician: DIGNA PERRY, Tech: APPROVED REPORT Patient Location: OUT-PATIENT Laterality:Bilateral Indications Dizziness and Vertigo CVA/TIA: Risk Factors Hypertension: TIA/CVA History Diabetes Smoking Doppler Spectral Velocity Analysis Right Left pCCA 86/12 cm/spCCA 82/10 cm/s mCCA 88/25 cm/smCCA 54/11 cm/s dCCA 101/17 cm/sdCCA 77/15 cm/s ECA 179/ cm/sECA 407/ cm/s pICA 87/12 cm/spICA 53/8 cm/s Shilo 105/21 cm/smICA 66/14 cm/s dICA 89/28 cm/sdICA 95/22 cm/s ICA/CCA 1.04ICA/CCA 1.16 Findings Grayscale images demonstrate bilateral calcified plaque. The bilateral external carotid arteries demonstrate greater than 70% stenosis based on velocity crite black. Bilateral common carotid and internal carotid vessels are grossly unremarkable and overall 0 to less than 50% stenosis. Bilateral ICA to CCA ratios are within normal limits. The left vertebral artery is not visualized. Normal right vertebral velocity flow. Critical Notification Critical Value: No <Conclusion> 1. No significant bilateral internal carotid artery disease. Moderate diffuse plaque noted. Signed by : Digna Perry, Electronically Approved : 02/05/2020 19:20:01
== END ==
LOC: ECHO 09:50
PROVIDERS: ATTEND Internal Medicine Cardiovascular Disease
DX: I65.23 Occlusion and stenosis of bilateral carotid arteries (principal); I51.7 Cardiomegaly; Z95.4 Presence of other heart-valve replacement
CPT/HCPCS: 36415; 80061; 83721; 93306; 93880

== ENCOUNTER 2020-04-25 17:51 | Inpatient (IN) | payer BC, MEDICARE ==
[~2020-04-25] VITALS: Ht 177.8 cm; Wt 90.3 kg
[~2020-04-25 17:51] MED LIST changes: -LISI-338 PO; +LISI-517 PO
[2020-04-25 18:25] LABS: BASO # 0.1 x10^3/uL (0.0-0.2); BASO % 1 % (0-3); EOS # 0.3 x10^3/uL (0.0-0.7); EOS % 3 % (0-3); HEMATOCRIT 41.9 % (39.0-53.0); HEMOGLOBIN 14.5 g/dL (13.0-17.5); LYMPH # 2.2 x10^3/uL (1.0-4.8); LYMPH % 25 % (24-48); MEAN CORPUSCULAR HEMOGLOBIN 29 pg (25-35); MEAN CORPUSCULAR HGB CONC 35 g/dL (31-37); MEAN CORPUSCULAR VOLUME 83 fL (79-100); MONO # 0.9 x10^3/uL (0.0-1.1); MONO % 10 % (0-9); NEUT # 5.7 x10^3/uL (1.8-7.7); NEUT % 62 % (31-73); PLATELET COUNT 203 x10^3/uL (140-400); RED BLOOD COUNT 5.06 x10^6/uL (4.30-5.70); RED CELL DISTRIBUTION WIDTH 14.1 % (11.5-14.5); WHITE BLOOD COUNT 9.2 x10^3/uL (4.0-11.0)
--- NOTE | 2020-04-25 18:25 | PHYS DOC ---
Past Medical History Past Medical History: Diabetes-Type II Additional Past Medical Histor: osteoarthritis, back pain, cleft lip Past Surgical History: Knee Replacement Additional Past Surgical Histo: aoritic valve surgery, bilat shoulder surgery, bilat knee surgery Smoking Status: Never Smoker Alcohol Use: None Drug Use: None General Adult EDM: Chief Complaint: NEURO SYMPTOMS/DEFICITS HPI: HPI: Patient is a 79 year [id number]-[id number] male past medical history of osteoarthritis diabetes multiple CVAs presents for the evaluation of dysarthria and headache. Patient arrived by private vehicle he was accompanied by his daughter. Daughter states patient started complaining of a headache yesterday. Patient states onset of headache 0400 hours in the a.m. and it was located in the right parietal region. Patient states headache started gradually he initially rated pain a 10 out of 10. Patient states pain is been constant since onset is current pain level is 8 out of 10. Patient denies any associated nausea vomiting or dizziness. 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 Daughter states she feels patient is having more difficulty speaking than normal. Patient is A and O x 4. No facial or extremity weakness. Patient denies Chest pain or shortness of breath. daughter states patient has an appointment for an MRI brain scheduled by Dr. Kirkpatrick on Saturday.. Review of Systems: Review of Systems: Constitutional: Denies fever or chills. [] Eyes: Denies change in visual acuity. [] HENT: Denies nasal congestion or sore throat. [] Respiratory: Denies cough or shortness of breath. [] Cardiovascular: Denies chest pain or edema. [] GI: Denies abdominal pain, nausea, vomiting, bloody stools or diarrhea. [] : Denies dysuria. [] Musculoskeletal: Denies back pain or joint pain. [] Integument: Denies rash. [] Neurologic: Denies headache, focal weakness or sensory changes. [] Endocrine: Denies polyuria or polydipsia. [] Lymphatic: Denies swollen glands. [] Psychiatric: Denies depression or anxiety. [] Heart Score: Risk Factors: Risk Factors: DM, Current or recent (<one month) smoker, HTN, HLP, family history of CAD, obesity. Risk Scores: Score 0 - 3: 2.5% MACE over next 6 weeks - Discharge Home Score 4 - 6: 20.3% MACE over next 6 weeks - Admit for Clinical Observation Score 7 - 10: 72.7% MACE over next 6 weeks - Early Invasive Strategies Allergies: Allergies: Allergies Coded Allergies Type Severity Reaction Last Updated Verified No Known Drug Allergies 05/14/17 No Physical Exam: PE: Constitutional: Well developed, well nourished, no acute distress, non-toxic appearance. [] HENT: Normocephalic, atraumatic, bilateral external ears normal, oropharynx moist, no oral exudates, nose normal. [] Eyes: PERRLA, EOMI, conjunctiva normal, no discharge. [] Neck: Normal range of motion, no tenderness, supple, no stridor. [] Cardiovascular:Heart rate regular rhythm, no murmur [] Lungs & Thorax: Bilateral breath sounds clear to auscultation [] Abdomen: Bowel sounds normal, soft, no tenderness, no masses, no pulsatile masses. [] Skin: Warm, dry, no erythema, no rash. [] Back: No tenderness, no CVA tenderness. [] Extremities: No tenderness, no cyanosis, no clubbing, ROM intact, no edema. [] Neurologic: Alert and oriented X 3, normal motor function, normal sensory function, no focal deficits noted. [] Psychologic: Affect normal, judgement normal, mood normal. [] Current Patient Data: Labs: Laboratory Tests Test 04/25/20 18:04 Glucose (Fingerstick) 118 mg/dL (70-99) H EKG: EKG: [] EKG performed at 18 oh floor heart rate 76 sinus rhythm PVCs no ST elevation no ST depression no acute LA Radiology/Procedures: Radiology/Procedures: [] Course & Med Decision Making: Course & Med Decision Making Pertinent Labs and Imaging studies reviewed. (See chart for details) [] Patient was evaluated for chief complaint. Work-up consisted of laboratory analysis and radiologic imaging and EKG. Results reviewed and discussed with lisandro sharma. CT head noncontrast negative for acute abnormalities. Patient's NIH stroke scale is 1. Patient was treated with aspirin. He was given Tylenol for his headache. Patient admitted to the hospitalist with consult placed to neurology. Norberto Disclaimer: Norberto Disclaimer: This electronic medical record was generated, in whole or in part, using a voice recognition dictation system. NIHSS Stroke Scale NIH Stroke Scale: NIH Stroke Scale Response (Comments) Value Level of Consciousness: 0 Alert/Responsive 0 LOC Questions: 0 Answers both correctly 0 LOC Commands: 0 Performs both tasks 0 Best Gaze: 0 Normal 0 Visual: 0 No visual loss 0 Facial Palsy: 0 Normal, symmetrical 0 Motor - Left Arm 0 No drift 0 Motor - Right Arm 0 No drift 0 Motor - Left Leg 0 No drift 0 Motor: Right Leg 0 No drift 0 Limb Ataxia: 0 Absent 0 Sensory: 0 No loss 0 Best Language: 0 Normal 0 Dysathria: 1 Mild to moderate 1 Extinction and Inattention: 0 Normal 0 Total 1 Departure Departure Impression: Primary Impression: Dysarthria Additional Impression: Headache Disposition: 09 ADMITTED INPT THIS HOSP Condition: STABLE Referrals: ROXIE CORNELIUS MD (PCP) ALVARO BILLINGS DO Apr 25, 2020 18:25
--- NOTE | 2020-04-25 18:25 | RAD ---
CT STROKE HEAD W/O Date: 04/25/2020 6:16 PM Clinical Indication: Reason: headache dysarthia / Spl. Instructions: / History: Comparison: 10/06/2019. Technique: 5 mm axial tomographic images were obtained of the head without contrast. These were view ed on brain and bone windows. One or more of the following dose reduction techniques were utilized: A utomated exposure control (AEC), Adjustment of mA and/or kV according to patient size, Use of iterati ve reconstruction technique such as ASiR, CT scan done according to ALARA and image gently/image dolan ly Findings: Mild generalized cerebral and cerebellar volume loss. Moderate nonspecific periventricular hypoattenu ation, most commonly seen with chronic small vessel ischemic disease. Calcified atherosclerosis of th e bilateral cavernous and paraclinoid internal carotid arteries and intracranial vertebral arteries. Moderate area of left temporal lobe encephalomalacia. Chronic basal ganglia, burr radiata, and cere bellar lacunar infarcts. No intra- or extra-axial mass or fluid collection. No acute hemorrhage. The ventricles are normal in size, shape, and morphology. The mayberry-white matter junction is normal. The subarachnoid cisterns are patent. The visualized paranasal sinuses are normal. The visualized portions of the orbits and globes are no rmal. The mastoid air cells are clear. The market risk specialist topogram shows no lytic lesion or fracture. Impression: No acute hemorrhage or large territory mayberry-white loss. Moderate area of left temporal lobe encephalomalacia. Chronic basal ganglia, burr radiata, and cere bellar lacunar infarcts. FOR INTERNAL CODING PURPOSES Critical result: Findings discussed with emergency report at 04/25/2020 6:19 PM. RESULT CODE: (C) Electronically signed by: Kelton German MD (04/25/2020 6:22 PM) [facility]
[2020-04-25 18:40] LABS: CALCIUM 8.9 mg/dL (8.5-10.1); CREATININE 1.3 mg/dL (0.7-1.3); GFR 53.3; POTASSIUM 4.4 mmol/L (3.5-5.1)
[2020-04-25] MEDS ORDERED: ASPIRIN CHEWABLE 81 MG TABLET. PO ONE (18:45)
[2020-04-25] MEDS ORDERED: ONDANSETRON PF 4 MG/2 ML VIAL. IV PRN (18:45)
[2020-04-25] MEDS ORDERED: MORPHINE SULFATE 2 MG/ML VIAL. IV PRN (18:45)
[2020-04-25 18:46] LABS: ALBUMIN 4.1 g/dL (3.4-5.0); ALBUMIN/GLOBULIN RATIO 1.2 (1.0-1.7); PROTHROMBIN TIME PATIENT 15.9 SEC (11.7-14.0); TOTAL BILIRUBIN 0.8 mg/dL (0.2-1.0); TOTAL PROTEIN 7.4 g/dL (6.4-8.2)
[2020-04-25] MEDS ORDERED: BISACODYL 10 MG SUPP.RECT. PR PRN (21:15)
[2020-04-25] MEDS ORDERED: ENOXAPARIN 40 MG/0.4 ML SYRINGE. SQ SCH (21:15)
[2020-04-25] MEDS ORDERED: MAG HYDROX/ALUMINUM HYD/SIMETH 30 ML ORAL.SUSP PO PRN (21:15)
[2020-04-25] MEDS ORDERED: MAGNESIUM HYDROXIDE 2,400 MG/30 ML ORAL.SUSP. PO PRN (21:15)
[2020-04-25] MEDS ORDERED: ONDANSETRON PF 4 MG/2 ML VIAL. IVP PRN (21:15)
[2020-04-25] MEDS ORDERED: CALCIUM CARBONATE 500 MG TAB.CHEW PO PRN (21:15)
[2020-04-25] MEDS ORDERED: ZOLPIDEM 5 MG TABLET. PO PRN (21:15)
[2020-04-25] MEDS ORDERED: ACETAMINOPHEN 325 MG TABLET. PO PRN (21:15)
[2020-04-25] MEDS ORDERED: ALPRAZolam 0.5 MG TABLET PO PRN (21:30)
[2020-04-25] MEDS ORDERED: tiZANidine 4 MG TABLET. PO PRN (21:30)
[2020-04-25] MEDS ORDERED: traMADol 50 MG TABLET PO PRN (21:30)
--- NOTE | 2020-04-25 21:39 | PDOC1 ---
History and Physical Date of Admission Date of Admission DATE: 04/25/20 TIME: 21:23 Identification/Chief Complaint Chief Complaint Headache, dysarthria Source Source: Chart review, Patient History of Present Illness History of Present Illness Patient 79-year-old male with past medical history CVA, DM2, who presents to the ER with complaints of acute headache and dysarthria. He states his symptoms started this morning with right parietal region headache, 10/10. He reports some improvement with medication, but he states his pain has been constant. He has a history of prior CVAs with residual dysarthria. Per patient's daughter, his symptoms seem to have worsened today with more difficulty speaking than baseline. Of note, patient is scheduled to have an outpatient MRI on Saturday per his neurologist Dr. Kirkpatrick. He denies any nausea or vomiting. Will admit patient for further medical management. Past Medical History Cardiovascular: AFIB, HTN, Hyperlipidemia, Aortic stenosis Pulmonary: COPD CENTRAL NERVOUS SYSTEM: CVA, Periperal neuropathy GI: GERD Heme/Onc: No pertinent hx Hepatobiliary: No pertinent hx Psych: Anxiety Musculoskeletal: low back pain, Osteoarthritis Infectious disease: No pertinent hx Endocrine: Diabetes Past Surgical History Past Surgical History: Total knee replacement, Other Family History Family History: Diabetes, Heart Disease Social History Smoke: Quit ALCOHOL: none Drugs: None Current Problem List Problem List Problems Medical Problems: (1) Dysarthria Status: Acute (2) Headache Status: Acute Current Medications Current Medications Current Medications Aspirin (Aspirin Chewable) 324 mg 1X ONCE PO Last administered on 04/25/20at 18:58; Start 04/25/20 at 18:45; Stop 04/25/20 at 18:46; Status DC Ondansetron HCl (Zofran) 4 mg PRN Q8HRS PRN IV NAUSEA/VOMITING Last administered on 04/25/20at 18:57; Start 04/25/20 at 18:45; Stop 04/26/20 at 18:44 Morphine Sulfate (Morphine Sulfate) 2 mg PRN Q2HR PRN IV PAIN Last administered on 04/25/20at 18:58; Start 04/25/20 at 18:45; Stop 04/26/20 at 18:44 Sodium Chloride 1,000 ml @ 75 mls/hr [id number] IV ; Start 04/25/20 at 21:30 Ondansetron HCl (Zofran) 4 mg PRN Q6HRS PRN IVP NAUSEA/VOMITING; Start 04/25/20 at 21:15; Status UNV Al Hydroxide/Mg Hydroxide (Mylanta Plus Xs) 30 ml PRN Q3HRS PRN PO HEARTBURN / GAS; Start 04/25/20 at 21:15; Status UNV Calcium Carbonate/ Glycine (Tums) 500 mg PRN Q3HRS PRN PO UPSET STOMACH; Start 04/25/20 at 21:15; Status UNV Zolpidem Tartrate (Ambien) 5 mg PRN QHS PRN PO INSOMNIA, MAY REPEAT IN 1HR; Start 04/25/20 at 21:15; Status UNV Morphine Sulfate (Morphine Sulfate) 2 mg PRN Q1HR PRN IV PAIN; Start 04/25/20 at 21:15; Status UNV Acetaminophen (Tylenol) 650 mg PRN Q6HRS PRN PO Headaches, Temp > 101.5F; Start 04/25/20 at 21:15; Status UNV Magnesium Hydroxide (Milk Of Magnesia) 2,400 mg PRN Q12HR PRN PO CONSTIPATION; Start 04/25/20 at 21:15; Status UNV Bisacodyl (Dulcolax Supp) 10 mg PRN DAILY PRN DC CONSTIPATION; Start 04/25/20 at 21:15; Status UNV Enoxaparin Sodium (Lovenox 40mg Syringe) 40 mg Q24H SQ ; Start 04/25/20 at 21:15; Status UNV Active Scripts Active Tramadol Hcl 50 Mg Tablet 50 Mg PO Q6HRS PRN Bactrim Ds Tablet (Sulfamethoxazole/Trimethoprim) 1 Each Tablet 1 Tab PO BID 10 Days Keflex (Cephalexin) 500 Mg Capsule 1 Cap PO BID Reported Tizanidine Hcl 4 Mg Tablet 4 Mg PO TID PRN Meloxicam 7.5 Mg Tablet 1 Tab PO DAILY Eliquis (Apixaban) 5 Mg Tablet 5 Mg PO DAILY Lisinopril 5 Mg Tablet 1 Tab PO DAILY Metformin Hcl 1,000 Mg Tablet 1.5 Tab PO HS Next dose bedtime on Saturday Glipizide 5 Mg Tablet 0.5 Tab PO DAILY Lovastatin 40 Mg Tablet 40 Mg PO HS Actos (Pioglitazone Hcl) 15 Mg Tablet 15 Mg PO DAILY Protonix (Pantoprazole Sodium) 40 Mg Tablet.dr 40 Mg PO HS Aspir 81 (Aspirin) 81 Mg Tablet.dr 1 Tab PO DAILY Xanax (Alprazolam) 0.5 Mg Tablet 0.5 Mg PO PRN Q6HRS PRN Fish Oil 1,000 Mg Capsule ([place]-3 Fatty Acids/Fish Oil) 1 Each Capsule 1 Each PO BID Centrum Silver Tablet (Multivits-Min/Fa/Lycopene/Lut) 1 Each Tablet 1 Each PO DAILY Allergies Allergies: Coded Allergies: No Known Drug Allergies (Unverified , 05/14/17) ROS Review of System GENERAL: No history of weight change, weakness or fevers. SKIN: No bruising, hair changes or rashes. EYES: No blurred, double or loss of vision. NOSE AND THROAT: No history of nosebleeds, hoarseness or sore throat. HEART: Denies chest pain, denies palpitations. LUNGS: Denies cough, hemoptysis, wheezing or shortness of breath. GASTROINTESTINAL: Denies nausea, vomiting, abdominal pain. GENITOURINARY: Denies dysuria, frequency, urgency, hematuria. NEUROLOGIC: Headache, dysarthria. Denies recent history of numbness, tingling, tremor or weakness. PSYCHIATRIC: Denies anxiety, denies depression. ENDOCRINE: No history of heat or cold intolerance, polyuria or polydipsia. EXTREMITIES: Denies muscle weakness, joint pain, pain on walking or stiffness. Physical Exam Physical Exam General: Alert, Oriented X3, Cooperative, No acute distress HEENT: PERRLA, EOMI Lungs: Clear to auscultation, Normal air movement Heart: RRR, no murmurs Cardiovascular: S1, S2 Abdomen: Normal bowel sounds, Soft, No tenderness Extremities: No clubbing, No cyanosis Skin: No rashes, No significant lesion Neuro: Patient does appear to be slightly slurring his speech, Normal tone, Sensation intact Psych/Mental Status: Mental status NL, Mood NL Vitals Vitals Vital Signs Date Time Temp Pulse Resp B/P (MAP) Pulse Ox O2 Delivery O2 Flow Rate FiO2 04/25/20 18:58 25 98 Room Air 04/25/20 18:00 97.7 75 162/86 (111) 97.7 Labs Labs Laboratory Tests Test 04/25/20 18:04 04/25/20 18:05 Glucose (Fingerstick) 118 mg/dL (70-99) White Blood Count 9.2 x10^3/uL (4.0-11.0) Red Blood Count 5.06 x10^6/uL (4.30-5.70) Hemoglobin 14.5 g/dL (13.0-17.5) Hematocrit 41.9 % (39.0-53.0) Mean Corpuscular Volume 83 fL (79-100) Mean Corpuscular Hemoglobin 29 pg (25-35) Mean Corpuscular Hemoglobin Concent 35 g/dL (31-37) Red Cell Distribution Width 14.1 % (11.5-14.5) Platelet Count 203 x10^3/uL (140-400) Neutrophils (%) (Auto) 62 % (31-73) Lymphocytes (%) (Auto) 25 % (24-48) Monocytes (%) (Auto) 10 % (0-9) Eosinophils (%) (Auto) 3 % (0-3) Basophils (%) (Auto) 1 % (0-3) Neutrophils # (Auto) 5.7 x10^3/uL (1.8-7.7) Lymphocytes # (Auto) 2.2 x10^3/uL (1.0-4.8) Monocytes # (Auto) 0.9 x10^3/uL (0.0-1.1) Eosinophils # (Auto) 0.3 x10^3/uL (0.0-0.7) Basophils # (Auto) 0.1 x10^3/uL (0.0-0.2) Prothrombin Time 15.9 SEC (11.7-14.0) Prothromb Time International Ratio 1.3 (0.8-1.1) Activated Partial Thromboplast Time 34 SEC (24-38) Sodium Level 133 mmol/L (136-145) Potassium Level 4.4 mmol/L (3.5-5.1) Chloride Level 99 mmol/L (98-107) Carbon Dioxide Level 24 mmol/L (21-32) Anion Gap 10 (6-14) Blood Urea Nitrogen 28 mg/dL (8-26) Creatinine 1.3 mg/dL (0.7-1.3) Estimated GFR (Cockcroft-Gault) 53.3 BUN/Creatinine Ratio 22 (6-20) Glucose Level 105 mg/dL (70-99) Calcium Level 8.9 mg/dL (8.5-10.1) Total Bilirubin 0.8 mg/dL (0.2-1.0) Aspartate Amino Transf (AST/SGOT) 19 U/L (15-37) Alanine Aminotransferase (ALT/SGPT) 33 U/L (16-63) Alkaline Phosphatase 48 U/L (46-116) Troponin I Quantitative < 0.017 ng/mL (0.000-0.055) Total Protein 7.4 g/dL (6.4-8.2) Albumin 4.1 g/dL (3.4-5.0) Albumin/Globulin Ratio 1.2 (1.0-1.7) Laboratory Tests Test 04/25/20 18:04 04/25/20 18:05 Glucose (Fingerstick) 118 mg/dL (70-99) White Blood Count 9.2 x10^3/uL (4.0-11.0) Red Blood Count 5.06 x10^6/uL (4.30-5.70) Hemoglobin 14.5 g/dL (13.0-17.5) Hematocrit 41.9 % (39.0-53.0) Mean Corpuscular Volume 83 fL (79-100) Mean Corpuscular Hemoglobin 29 pg (25-35) Mean Corpuscular Hemoglobin Concent 35 g/dL (31-37) Red Cell Distribution Width 14.1 % (11.5-14.5) Platelet Count 203 x10^3/uL (140-400) Neutrophils (%) (Auto) 62 % (31-73) Lymphocytes (%) (Auto) 25 % (24-48) Monocytes (%) (Auto) 10 % (0-9) Eosinophils (%) (Auto) 3 % (0-3) Basophils (%) (Auto) 1 % (0-3) Neutrophils # (Auto) 5.7 x10^3/uL (1.8-7.7) Lymphocytes # (Auto) 2.2 x10^3/uL (1.0-4.8) Monocytes # (Auto) 0.9 x10^3/uL (0.0-1.1) Eosinophils # (Auto) 0.3 x10^3/uL (0.0-0.7) Basophils # (Auto) 0.1 x10^3/uL (0.0-0.2) Prothrombin Time 15.9 SEC (11.7-14.0) Prothromb Time International Ratio 1.3 (0.8-1.1) Activated Partial Thromboplast Time 34 SEC (24-38) Sodium Level 133 mmol/L (136-145) Potassium Level 4.4 mmol/L (3.5-5.1) Chloride Level 99 mmol/L (98-107) Carbon Dioxide Level 24 mmol/L (21-32) Anion Gap 10 (6-14) Blood Urea Nitrogen 28 mg/dL (8-26) Creatinine 1.3 mg/dL (0.7-1.3) Estimated GFR (Cockcroft-Gault) 53.3 BUN/Creatinine Ratio 22 (6-20) Glucose Level 105 mg/dL (70-99) Calcium Level 8.9 mg/dL (8.5-10.1) Total Bilirubin 0.8 mg/dL (0.2-1.0) Aspartate Amino Transf (AST/SGOT) 19 U/L (15-37) Alanine Aminotransferase (ALT/SGPT) 33 U/L (16-63) Alkaline Phosphatase 48 U/L (46-116) Troponin I Quantitative < 0.017 ng/mL (0.000-0.055) Total Protein 7.4 g/dL (6.4-8.2) Albumin 4.1 g/dL (3.4-5.0) Albumin/Globulin Ratio 1.2 (1.0-1.7) Images Images CT STROKE HEAD W/O Date: 04/25/2020 6:16 PM Clinical Indication: Reason: headache dysarthia / Spl. Instructions: / History: Comparison: 10/06/2019. Technique: 5 mm axial tomographic images were obtained of the head without contrast. These were viewed on brain and bone windows. One or more of the following dose reduction techniques were utilized: Automated exposure control (AEC), Adjustment of mA and/or kV according to patient size, Use of iterative reconstruction technique such as ASiR, CT scan done according to ALARA and image gently/image wisely Findings: Mild generalized cerebral and cerebellar volume loss. Moderate nonspecific periventricular hypoattenuation, most commonly seen with chronic small vessel ischemic disease. Calcified atherosclerosis of the bilateral cavernous and paraclinoid internal carotid arteries and intracranial vertebral arteries. Moderate area of left temporal lobe encephalomalacia. Chronic basal ganglia, burr radiata, and cerebellar lacunar infarcts. No intra- or extra-axial mass or fluid collection. No acute hemorrhage. The ventricles are normal in size, shape, and morphology. The mayberry-white matter junction is normal. The subarachnoid cisterns are patent. The visualized paranasal sinuses are normal. The visualized portions of the orbits and globes are normal. The mastoid air cells are clear. The vocational trainer topogram shows no lytic lesion or fracture. Impression: No acute hemorrhage or large territory mayberry-white loss. VTE Prophylaxis Ordered VTE Prophylaxis Devices: No VTE Pharmacological Prophylaxi: Yes Assessment/Plan Assessment/Plan Acute CVA Acute on chronic dysarthria Dehydration Plan: Consultation placed to neurology Patient received aspirin 324 mg in the ER, will continue daily aspirin. Lipid panel pending; will treat patient with high intensity statin CT head on admission negative for acute bleed Continue home medications FEN - Cardiac diet PPX - Eliquis FULL CODE Dispo - inpatient for above Justifications for Admission Other Justification CVA AMGI SAMPSON MD Apr 25, 2020 21:39
[2020-04-25] MEDS: IV NORMAL SALINE 1000ML BAG 1,000 ML IV SCH (21:45)
[2020-04-25] MEDS: MORPHINE SULFATE 2 MG/ML VIAL. IV PRN ×2 (21:46→22:39)
[2020-04-25] MEDS ORDERED: ATORVASTATIN CALCIUM 40 MG TABLET. PO SCH (22:00)
[2020-04-26] MEDS: ANTI-COAG MONITOR BY PHARMACY. MC PRN ×2 (02:17→08:53)
[2020-04-26 02:28] VITALS: BP 187/88
--- NOTE | 2020-04-26 02:29 | NUR ---
Pt to floor. Pt states for some time now he is having troubles remembering things. He states he loses his keys frequently. Pt doesn't know what medications he is taking or on. Abner historian. States he gets his medications from [facility]. Trinidad CROUCH aware that patients medications need reviewed.
[2020-04-26 04:13] VITALS: BP 186/86
[2020-04-26 07:00] VITALS: BP 192/84
[2020-04-26] MEDS ORDERED: hydrALAZINE 20 MG/ML VIAL. IVP PRN (08:00)
--- NOTE | 2020-04-26 08:04 | PDOC ---
[employer] PROGRESS NOTE Date of Service DOS: DATE: 04/26/20 TIME: 08:01 Chief Complaint Chief Complaint Acute CVA Acute on chronic dysarthria Dehydration Plan: Consultation placed to neurology Patient received aspirin 324 mg in the ER, will continue daily aspirin. Lipid panel pending; will treat patient with high intensity statin CT head on admission negative for acute bleed Continue home medications FEN - Cardiac diet PPX - Eliquis FULL CODE Dispo - inpatient for above History of Present Illness History of Present Illness Patient 79-year-old male with past medical history CVA, DM2, who presents to the ER with complaints of acute headache and dysarthria. He states his symptoms started this morning with right parietal region headache, 01/29. He reports some improvement with medication, but he states his pain has been constant. He has a history of prior CVAs with residual dysarthria. Per patient's daughter, his symptoms seem to have worsened today with more difficulty speaking than baseline. Of note, patient is scheduled to have an outpatient MRI on Saturday per his neurologist Dr. Kirkpatrick. He denies any nausea or vomiting. Will admit patient for further medical management. 04/26: Patient seen and evaluated. Still with some hypertension, to be expected after ischemic CVA. Morning lipid panel pending. We will follow neurology recommendations. He is to have MRI today. He will discharge after MRI, barring any previous abnormalities. Greater than 30 minutes spent managing the discharge this patient. Vitals/I&O Vitals/I&O: Vital Signs Date Time Temp Pulse Resp B/P (MAP) Pulse Ox O2 Delivery O2 Flow Rate FiO2 04/26/20 04:13 97.2 75 20 186/86 (119) 97 Room Air 97.2 I & O 04/25/20 04/25/20 04/26/20 15:00 23:00 07:00 Intake Total 1000 ml Output Total 350 ml Balance 650 ml Physical Exam General: Alert Heart: Regular rate Lungs: Clear Abdomen: Soft Extremities: No clubbing, No cyanosis Skin: No rashes, No breakdown Labs Labs: Laboratory Tests Test 04/25/20 18:04 04/25/20 18:05 04/26/20 07:44 Glucose (Fingerstick) 118 mg/dL (70-99) 136 mg/dL (70-99) White Blood Count 9.2 x10^3/uL (4.0-11.0) Red Blood Count 5.06 x10^6/uL (4.30-5.70) Hemoglobin 14.5 g/dL (13.0-17.5) Hematocrit 41.9 % (39.0-53.0) Mean Corpuscular Volume 83 fL (79-100) Mean Corpuscular Hemoglobin 29 pg (25-35) Mean Corpuscular Hemoglobin Concent 35 g/dL (31-37) Red Cell Distribution Width 14.1 % (11.5-14.5) Platelet Count 203 x10^3/uL (140-400) Neutrophils (%) (Auto) 62 % (31-73) Lymphocytes (%) (Auto) 25 % (24-48) Monocytes (%) (Auto) 10 % (0-9) Eosinophils (%) (Auto) 3 % (0-3) Basophils (%) (Auto) 1 % (0-3) Neutrophils # (Auto) 5.7 x10^3/uL (1.8-7.7) Lymphocytes # (Auto) 2.2 x10^3/uL (1.0-4.8) Monocytes # (Auto) 0.9 x10^3/uL (0.0-1.1) Eosinophils # (Auto) 0.3 x10^3/uL (0.0-0.7) Basophils # (Auto) 0.1 x10^3/uL (0.0-0.2) Prothrombin Time 15.9 SEC (11.7-14.0) Prothromb Time International Ratio 1.3 (0.8-1.1) Activated Partial Thromboplast Time 34 SEC (24-38) Sodium Level 133 mmol/L (136-145) Potassium Level 4.4 mmol/L (3.5-5.1) Chloride Level 99 mmol/L (98-107) Carbon Dioxide Level 24 mmol/L (21-32) Anion Gap 10 (6-14) Blood Urea Nitrogen 28 mg/dL (8-26) Creatinine 1.3 mg/dL (0.7-1.3) Estimated GFR (Cockcroft-Gault) 53.3 BUN/Creatinine Ratio 22 (6-20) Glucose Level 105 mg/dL (70-99) Calcium Level 8.9 mg/dL (8.5-10.1) Total Bilirubin 0.8 mg/dL (0.2-1.0) Aspartate Amino Transf (AST/SGOT) 19 U/L (15-37) Alanine Aminotransferase (ALT/SGPT) 33 U/L (16-63) Alkaline Phosphatase 48 U/L (46-116) Troponin I Quantitative < 0.017 ng/mL (0.000-0.055) Total Protein 7.4 g/dL (6.4-8.2) Albumin 4.1 g/dL (3.4-5.0) Albumin/Globulin Ratio 1.2 (1.0-1.7) Assessment and Plan Assessmemt and Plan Problems Medical Problems: (1) Dysarthria Status: Acute (2) Headache Status: Acute Comment Review of Relevant I have reviewed the following items sabiha (where applicable) has been applied. Medications: Current Medications Medications (Trade) Dose Ordered Sig/Katlin Route PRN Reason Start Time Stop Time Status Last Admin Dose Admin Aspirin (Aspirin Chewable) 324 mg 1X ONCE PO 04/25/20 18:45 04/25/20 18:46 DC 04/25/20 18:58 Ondansetron HCl (Zofran) 4 mg PRN Q8HRS PRN IV NAUSEA/VOMITING 04/25/20 18:45 04/25/20 21:29 DC 04/25/20 18:57 Morphine Sulfate (Morphine Sulfate) 2 mg PRN Q2HR PRN IV PAIN 04/25/20 18:45 04/25/20 21:29 DC 04/25/20 18:58 Sodium Chloride 1,000 ml @ 75 mls/hr [id number] IV 04/25/20 21:30 04/25/20 21:45 Morphine Sulfate (Morphine Sulfate) 2 mg PRN Q1HR PRN IV SEVERE PAIN 7-10 04/25/20 21:15 04/25/20 22:39 Atorvastatin Calcium (Lipitor) 40 mg QHS PO 04/25/20 22:00 04/25/20 22:37 Info (Anti-Coagulation Monitoring By Pharmacy) 1 each PRN DAILY PRN MC SEE COMMENTS 04/25/20 21:45 04/26/20 02:17 Justifications for Admission Other Justification CVA MAGI SAMPSON MD Apr 26, 2020 08:04
[2020-04-26 08:24] LABS: BASO # 0.1 x10^3/uL (0.0-0.2); BASO % 1 % (0-3); EOS # 0.3 x10^3/uL (0.0-0.7); EOS % 4 % (0-3); HEMATOCRIT 44.1 % (39.0-53.0); HEMOGLOBIN 14.8 g/dL (13.0-17.5); LYMPH # 1.8 x10^3/uL (1.0-4.8); LYMPH % 25 % (24-48); MEAN CORPUSCULAR HEMOGLOBIN 28 pg (25-35); MEAN CORPUSCULAR HGB CONC 33 g/dL (31-37); MEAN CORPUSCULAR VOLUME 84 fL (79-100); MONO # 0.7 x10^3/uL (0.0-1.1); MONO % 9 % (0-9); NEUT # 4.3 x10^3/uL (1.8-7.7); NEUT % 61 % (31-73); PLATELET COUNT 194 x10^3/uL (140-400); RED BLOOD COUNT 5.26 x10^6/uL (4.30-5.70); RED CELL DISTRIBUTION WIDTH 14.4 % (11.5-14.5); WHITE BLOOD COUNT 7.1 x10^3/uL (4.0-11.0)
[2020-04-26] MEDS ORDERED: ACETAMINOPHEN 325 MG TABLET. PO PRN (08:45)
[2020-04-26 08:52] LABS: CALCIUM 9.4 mg/dL (8.5-10.1); CREATININE 1.1 mg/dL (0.7-1.3); GFR 64.6; POTASSIUM 5.4 mmol/L (3.5-5.1)
[2020-04-26] MEDS ORDERED: LISINOPRIL 5 MG TABLET. PO SCH (09:00)
[2020-04-26] MEDS ORDERED: APIXABAN 5 MG TABLET. PO SCH ×2 (09:00)
[2020-04-26] MEDS ORDERED: ASPIRIN ENTERIC COATED 81 MG TABLET.DR. PO SCH (09:00)
[2020-04-26 09:10] LABS: CHOLESTEROL/HDL RATIO 3.9
--- NOTE | 2020-04-26 10:05 | PDOC2 ---
NEUROLOGY CONSULT Date of Service DOS: DATE: 04/26/20 TIME: 09:53 Reason for Consult Reason for Consult: Transient ischemic attack Referring Physician Referring Physician: Dr. Lara PCP: Dr. Dahl Source Source: Caregiver (Daughter), Chart review, Patient History of Present Illness History of Present Illness The patient is a 79-year-old right-handed male who presented to emergency department last night with headache in the right parietal region as well as possible facial droop and dysarthria. He is feeling better now. Blood pressure was as high as 179/82 in the emergency department. I saw him in the office on 04/11 for right-sided headaches, disequilibrium, and memory problems. I had arranged for an outpatient MRI scheduled for today actually. I saw him in 2002 for migraine headaches. In 2003 he had a left temporal stroke leaving him with mild aphasia. In 2009, he came in with dizziness to the hospital and MRI of the brain was negative. I felt the problem was related to diabetic neuropathy, relative hypotension, lumbar spondylosis, but without evidence of vestibular dysfunction. In 2017 he had a right occipital stroke. Since I saw him, he turned out to have atrial fibrillation and is on Eliquis. In the past 6 months he has developed disequilibrium, repeating questions, forgetting to do his finances, and feeling like he might get lost driving. He forgets to do tasks. He has lost objects. He still is living [place] own [place] There is no history of seizure or head injury. Dr. Dahl recently found a low B12 level, 205, and patient is on B12 shots Past Medical History Cardiovascular: AFIB, HTN, Hyperlipidemia, Aortic stenosis Pulmonary: COPD CENTRAL NERVOUS SYSTEM: CVA, Periperal neuropathy, TIA Musculoskeletal: low back pain (Lumbar spinal stenosis), Osteoarthritis Endocrine: Diabetes Past Surgical History Past Surgical History: Total knee replacement (Left), Other (Aortic valve replacement 03/30, redo, bilateral shoulder replacement, lumbar, cardiac ablation) Family History Family History: CAD, DM Social History Social History Lives on her own, ex-smoker, no alcohol, , retired Current Medications Current Medications Current Medications Aspirin (Aspirin Chewable) 324 mg 1X ONCE PO Last administered on 04/25/20at 18:58; Start 04/25/20 at 18:45; Stop 04/25/20 at 18:46; Status DC Ondansetron HCl (Zofran) 4 mg PRN Q8HRS PRN IV NAUSEA/VOMITING Last administered on 04/25/20at 18:57; Start 04/25/20 at 18:45; Stop 04/25/20 at 21:29; Status DC Morphine Sulfate (Morphine Sulfate) 2 mg PRN Q2HR PRN IV PAIN Last administered on 04/25/20at 18:58; Start 04/25/20 at 18:45; Stop 04/25/20 at 21:29; Status DC Sodium Chloride 1,000 ml @ 75 mls/hr [id number] IV Last administered on 04/25/20at 21:45; Start 04/25/20 at 21:30 Ondansetron HCl (Zofran) 4 mg PRN Q6HRS PRN IVP NAUSEA/VOMITING 1ST CHOICE; Start 04/25/20 at 21:15 Al Hydroxide/Mg Hydroxide (Mylanta Plus Xs) 30 ml PRN Q3HRS PRN PO HEARTBURN / GAS; Start 04/25/20 at 21:15 Calcium Carbonate/ Glycine (Tums) 500 mg PRN Q3HRS PRN PO UPSET STOMACH; Start 04/25/20 at 21:15 Zolpidem Tartrate (Ambien) 5 mg PRN QHS PRN PO INSOMNIA, MAY REPEAT IN 1HR; Start 04/25/20 at 21:15 Morphine Sulfate (Morphine Sulfate) 2 mg PRN Q1HR PRN IV SEVERE PAIN 7-10 Last administered on 04/25/20at 22:39; Start 04/25/20 at 21:15 Acetaminophen (Tylenol) 650 mg PRN Q6HRS PRN PO Headaches, Temp > 101.5F; Start 04/25/20 at 21:15; Stop 04/26/20 at 08:51; Status DC Magnesium Hydroxide (Milk Of Magnesia) 2,400 mg PRN Q12HR PRN PO CONSTIPATION 1ST CHOICE; Start 04/25/20 at 21:15 Bisacodyl (Dulcolax Supp) 10 mg PRN DAILY PRN NM CONSTIPATION 2ND CHOICE; Start 04/25/20 at 21:15 Enoxaparin Sodium (Lovenox 40mg Syringe) 40 mg Q24H SQ ; Start 04/25/20 at 21:15; Stop 04/25/20 at 21:25; Status DC Alprazolam (Xanax) 0.5 mg PRN Q6HRS PRN PO ANXIETY / AGITATION; Start 04/25/20 at 21:30 Apixaban (Eliquis) 5 mg DAILY PO ; Start 04/26/20 at 09:00; Stop 04/26/20 at 08:49; Status DC Aspirin (Ecotrin) 81 mg DAILY PO Last administered on 04/26/20at 09:43; Start 04/26/20 at 09:00 Lisinopril (Prinivil) 5 mg DAILY PO Last administered on 04/26/20at 08:31; Start 04/26/20 at 09:00 Tizanidine HCl (Zanaflex) 4 mg PRN TID PRN PO MUSCLE SPASMS; Start 04/25/20 at 21:30 Tramadol HCl (Ultram) 50 mg PRN Q6HRS PRN PO MODERATE PAIN 4-6; Start 04/25/20 at 21:30 Atorvastatin Calcium (Lipitor) 40 mg QHS PO Last administered on 04/25/20at 22:37; Start 04/25/20 at 22:00 Info (Anti-Coagulation Monitoring By Pharmacy) 1 each PRN DAILY PRN MC SEE COMMENTS Last administered on 04/26/20at 08:53; Start 04/25/20 at 21:45 Hydralazine HCl (Apresoline Inj) 10 mg PRN Q15MIN PRN IVP ELEVATED BP, SEE COMMENTS; Start 04/26/20 at 08:00 Apixaban (Eliquis) 5 mg BID PO Last administered on 04/26/20at 09:43; Start 04/26/20 at 09:00 Acetaminophen (Tylenol) 650 mg PRN Q6HRS PRN PO MILD PAIN / TEMP > 100.3'F; Start 04/26/20 at 08:45 Active Scripts Active Tramadol Hcl 50 Mg Tablet 50 Mg PO Q6HRS PRN Bactrim Ds Tablet (Sulfamethoxazole/Trimethoprim) 1 Each Tablet 1 Tab PO BID 10 Days Keflex (Cephalexin) 500 Mg Capsule 1 Cap PO BID Reported Tizanidine Hcl 4 Mg Tablet 4 Mg PO TID PRN Meloxicam 7.5 Mg Tablet 1 Tab PO DAILY Eliquis (Apixaban) 5 Mg Tablet 5 Mg PO DAILY Lisinopril 5 Mg Tablet 1 Tab PO DAILY Metformin Hcl 1,000 Mg Tablet 1.5 Tab PO HS Next dose bedtime on Saturday Glipizide 5 Mg Tablet 0.5 Tab PO DAILY Lovastatin 40 Mg Tablet 40 Mg PO HS Actos (Pioglitazone Hcl) 15 Mg Tablet 15 Mg PO DAILY Protonix (Pantoprazole Sodium) 40 Mg Tablet.dr 40 Mg PO HS Aspir 81 (Aspirin) 81 Mg Tablet.dr 1 Tab PO DAILY Xanax (Alprazolam) 0.5 Mg Tablet 0.5 Mg PO PRN Q6HRS PRN Fish Oil 1,000 Mg Capsule ([place]-3 Fatty Acids/Fish Oil) 1 Each Capsule 1 Each PO BID Centrum Silver Tablet (Multivits-Min/Fa/Lycopene/Lut) 1 Each Tablet 1 Each PO DAILY Allergies Allergies: Coded Allergies: No Known Drug Allergies (Unverified , 05/14/17) ROS Review of System Negative for fever, chills, weight loss, shortness of breath, chest pain, indigestion, hematochezia, melena, and dysuria. Full 14-point review of systems is negative. Physical Exam Physical Examination General: Well-developed, well-nourished white male in no acute distress HEENT: Normocephalic andatraumatic.Temporal arteriespulsatile and nontender. Neck: Supple without bruit, no meningismus Musculoskeletal: Stability:see neurologic. Gait exam:see neurologic. Tone:see neurologic.Str ength:see neurologic. Neurological: Mental Status:Mild expressive aphasia. Cranial Nerves:Pupils equal and reactive to light, extraocular movements areintact, visual almeida are full to confrontation. Facial sensation is normal. There is no facial asymmetry. Vestibulo-ocular reflex is intact. Palate elevates and tongue protrudes in midline. All other cranial related problems are negative except as mentioned before.Reflexes:1+ and symmetric with flexor plantar responses. Motor:5/5 strength with normal tone and bulk. Coordination:Finger-nose finger and [id number] testing are normal. Rapid alternating movements and fine finger movements are intact. Gait:Arthritic. Sensory:Stocking loss. Vitals VITALS Vital Signs Date Time Temp Pulse Resp B/P (MAP) Pulse Ox O2 Delivery O2 Flow Rate FiO2 04/26/20 08:31 68 192/84 04/26/20 07:00 96.5 18 96 Room Air 96.5 Labs Labs Laboratory Tests Test 04/25/20 18:04 04/25/20 18:05 04/26/20 07:34 04/26/20 07:44 Glucose (Fingerstick) 118 mg/dL (70-99) 136 mg/dL (70-99) White Blood Count 9.2 x10^3/uL (4.0-11.0) 7.1 x10^3/uL (4.0-11.0) Red Blood Count 5.06 x10^6/uL (4.30-5.70) 5.26 x10^6/uL (4.30-5.70) Hemoglobin 14.5 g/dL (13.0-17.5) 14.8 g/dL (13.0-17.5) Hematocrit 41.9 % (39.0-53.0) 44.1 % (39.0-53.0) Mean Corpuscular Volume 83 fL (79-100) 84 fL (79-100) Mean Corpuscular Hemoglobin 29 pg (25-35) 28 pg (25-35) Mean Corpuscular Hemoglobin Concent 35 g/dL (31-37) 33 g/dL (31-37) Red Cell Distribution Width 14.1 % (11.5-14.5) 14.4 % (11.5-14.5) Platelet Count 203 x10^3/uL (140-400) 194 x10^3/uL (140-400) Neutrophils (%) (Auto) 62 % (31-73) 61 % (31-73) Lymphocytes (%) (Auto) 25 % (24-48) 25 % (24-48) Monocytes (%) (Auto) 10 % (0-9) 9 % (0-9) Eosinophils (%) (Auto) 3 % (0-3) 4 % (0-3) Basophils (%) (Auto) 1 % (0-3) 1 % (0-3) Neutrophils # (Auto) 5.7 x10^3/uL (1.8-7.7) 4.3 x10^3/uL (1.8-7.7) Lymphocytes # (Auto) 2.2 x10^3/uL (1.0-4.8) 1.8 x10^3/uL (1.0-4.8) Monocytes # (Auto) 0.9 x10^3/uL (0.0-1.1) 0.7 x10^3/uL (0.0-1.1) Eosinophils # (Auto) 0.3 x10^3/uL (0.0-0.7) 0.3 x10^3/uL (0.0-0.7) Basophils # (Auto) 0.1 x10^3/uL (0.0-0.2) 0.1 x10^3/uL (0.0-0.2) Prothrombin Time 15.9 SEC (11.7-14.0) Prothromb Time International Ratio 1.3 (0.8-1.1) Activated Partial Thromboplast Time 34 SEC (24-38) Sodium Level 133 mmol/L (136-145) 140 mmol/L (136-145) Potassium Level 4.4 mmol/L (3.5-5.1) 5.4 mmol/L (3.5-5.1) Chloride Level 99 mmol/L (98-107) 103 mmol/L (98-107) Carbon Dioxide Level 24 mmol/L (21-32) 29 mmol/L (21-32) Anion Gap 10 (6-14) 8 (6-14) Blood Urea Nitrogen 28 mg/dL (8-26) 24 mg/dL (8-26) Creatinine 1.3 mg/dL (0.7-1.3) 1.1 mg/dL (0.7-1.3) Estimated GFR (Cockcroft-Gault) 53.3 64.6 BUN/Creatinine Ratio 22 (6-20) Glucose Level 105 mg/dL (70-99) 122 mg/dL (70-99) Calcium Level 8.9 mg/dL (8.5-10.1) 9.4 mg/dL (8.5-10.1) Total Bilirubin 0.8 mg/dL (0.2-1.0) Aspartate Amino Transf (AST/SGOT) 19 U/L (15-37) Alanine Aminotransferase (ALT/SGPT) 33 U/L (16-63) Alkaline Phosphatase 48 U/L (46-116) Troponin I Quantitative < 0.017 ng/mL (0.000-0.055) Total Protein 7.4 g/dL (6.4-8.2) Albumin 4.1 g/dL (3.4-5.0) Albumin/Globulin Ratio 1.2 (1.0-1.7) Triglycerides Level 158 mg/dL (0-150) Cholesterol Level 167 mg/dL (0-200) LDL Cholesterol, Calculated 92 mg/dL (0-100) VLDL Cholesterol, Calculated 32 mg/dL (0-40) Non-HDL Cholesterol Calculated 124 mg/dL (0-129) HDL Cholesterol 43 mg/dL (40-60) Cholesterol/HDL Ratio 3.9 Laboratory Tests Test 04/25/20 18:04 04/25/20 18:05 04/26/20 07:34 04/26/20 07:44 Glucose (Fingerstick) 118 mg/dL (70-99) 136 mg/dL (70-99) White Blood Count 9.2 x10^3/uL (4.0-11.0) 7.1 x10^3/uL (4.0-11.0) Red Blood Count 5.06 x10^6/uL (4.30-5.70) 5.26 x10^6/uL (4.30-5.70) Hemoglobin 14.5 g/dL (13.0-17.5) 14.8 g/dL (13.0-17.5) Hematocrit 41.9 % (39.0-53.0) 44.1 % (39.0-53.0) Mean Corpuscular Volume 83 fL (79-100) 84 fL (79-100) Mean Corpuscular Hemoglobin 29 pg (25-35) 28 pg (25-35) Mean Corpuscular Hemoglobin Concent 35 g/dL (31-37) 33 g/dL (31-37) Red Cell Distribution Width 14.1 % (11.5-14.5) 14.4 % (11.5-14.5) Platelet Count 203 x10^3/uL (140-400) 194 x10^3/uL (140-400) Neutrophils (%) (Auto) 62 % (31-73) 61 % (31-73) Lymphocytes (%) (Auto) 25 % (24-48) 25 % (24-48) Monocytes (%) (Auto) 10 % (0-9) 9 % (0-9) Eosinophils (%) (Auto) 3 % (0-3) 4 % (0-3) Basophils (%) (Auto) 1 % (0-3) 1 % (0-3) Neutrophils # (Auto) 5.7 x10^3/uL (1.8-7.7) 4.3 x10^3/uL (1.8-7.7) Lymphocytes # (Auto) 2.2 x10^3/uL (1.0-4.8) 1.8 x10^3/uL (1.0-4.8) Monocytes # (Auto) 0.9 x10^3/uL (0.0-1.1) 0.7 x10^3/uL (0.0-1.1) Eosinophils # (Auto) 0.3 x10^3/uL (0.0-0.7) 0.3 x10^3/uL (0.0-0.7) Basophils # (Auto) 0.1 x10^3/uL (0.0-0.2) 0.1 x10^3/uL (0.0-0.2) Prothrombin Time 15.9 SEC (11.7-14.0) Prothromb Time International Ratio 1.3 (0.8-1.1) Activated Partial Thromboplast Time 34 SEC (24-38) Sodium Level 133 mmol/L (136-145) 140 mmol/L (136-145) Potassium Level 4.4 mmol/L (3.5-5.1) 5.4 mmol/L (3.5-5.1) Chloride Level 99 mmol/L (98-107) 103 mmol/L (98-107) Carbon Dioxide Level 24 mmol/L (21-32) 29 mmol/L (21-32) Anion Gap 10 (6-14) 8 (6-14) Blood Urea Nitrogen 28 mg/dL (8-26) 24 mg/dL (8-26) Creatinine 1.3 mg/dL (0.7-1.3) 1.1 mg/dL (0.7-1.3) Estimated GFR (Cockcroft-Gault) 53.3 64.6 BUN/Creatinine Ratio 22 (6-20) Glucose Level 105 mg/dL (70-99) 122 mg/dL (70-99) Calcium Level 8.9 mg/dL (8.5-10.1) 9.4 mg/dL (8.5-10.1) Total Bilirubin 0.8 mg/dL (0.2-1.0) Aspartate Amino Transf (AST/SGOT) 19 U/L (15-37) Alanine Aminotransferase (ALT/SGPT) 33 U/L (16-63) Alkaline Phosphatase 48 U/L (46-116) Troponin I Quantitative < 0.017 ng/mL (0.000-0.055) Total Protein 7.4 g/dL (6.4-8.2) Albumin 4.1 g/dL (3.4-5.0) Albumin/Globulin Ratio 1.2 (1.0-1.7) Triglycerides Level 158 mg/dL (0-150) Cholesterol Level 167 mg/dL (0-200) LDL Cholesterol, Calculated 92 mg/dL (0-100) VLDL Cholesterol, Calculated 32 mg/dL (0-40) Non-HDL Cholesterol Calculated 124 mg/dL (0-129) HDL Cholesterol 43 mg/dL (40-60) Cholesterol/HDL Ratio 3.[address] STROKE HEAD W/O Date: 04/25/2020 6:16 PM Clinical Indication: Reason: headache dysarthia / Spl. Instructions: / History: Comparison: 10/06/2019. Technique: 5 mm axial tomographic images were obtained of the head without contrast. These were viewed on brain and bone windows. One or more of the following dose reduction techniques were utilized: Automated exposure control (AEC), Adjustment of mA and/or kV according to patient size, Use of iterative reconstruction technique such as ASiR, CT scan done according to ALARA and image gently/image wisely Findings: Mild generalized cerebral and cerebellar volume loss. Moderate nonspecific periventricular hypoattenuation, most commonly seen with chronic small vessel ischemic disease. Calcified atherosclerosis of the bilateral cavernous and paraclinoid internal carotid arteries and intracranial vertebral arteries. Moderate area of left temporal lobe encephalomalacia. Chronic basal ganglia, burr radiata, and cerebellar lacunar infarcts. No intra- or extra-axial mass or fluid collection. No acute hemorrhage. The ventricles are normal in size, shape, and morphology. The mayberry-white matter junction is normal. The subarachnoid cisterns are patent. The visualized paranasal sinuses are normal. The visualized portions of the orbits and globes are normal. The mastoid air cells are clear. The drum straightener topogram shows no lytic lesion or fracture. Impression: No acute hemorrhage or large territory mayberry-white loss. Moderate area of left temporal lobe encephalomalacia. Chronic basal ganglia, burr radiata, and cerebellar lacunar infarcts. Assessment/Plan Assessment/Plan Impression: Headache and transient ischemic attack symptoms, may have been due to hypertension, he also has a history of migraines that could explain, I do not find that he had a new stroke. Note that he is already on Eliquis and statin. History of multiple old strokes leaving him with aphasia and memory issues, I suppose he could also have Alzheimer's, but his B12 deficiency may be contributing Diabetic neuropathy B12 deficiency on replacement injections Recommendations: Continue statin and Eliquis if he passes swallow evaluation Hold on adding aspirin MRI of the brain Further stroke work-up depending on its results If he is feeling well and MRI is negative, he could be discharged as soon as today. I discussed with the patient and his daughter. Thank you for letting me help with the patient's care. RAH EASTMAN MD Apr 26, 2020 10:05
[2020-04-26] MEDS: IV NORMAL SALINE 1000ML BAG 1,000 ML IV SCH (10:50)
[2020-04-26 11:01] VITALS: BP 139/72
--- NOTE | 2020-04-26 14:21 | NUR ---
SS following for discharge planning. SS reviewed pt chart and discussed with pt RN. Pt is from home and is currently on room air. COVID19 negative. PT/OT recommended home independent. MRI today. SS will continue to follow for discharge planning.
[2020-04-26 15:25] VITALS: BP 127/62
[2020-04-26] MEDS ORDERED: ATOR40TA59 PO (15:32)
--- NOTE | 2020-04-26 15:37 | PDOC3 ---
Discharge Summary Visit Information Date of Admission: Apr 25, 2020 Date of Discharge: Apr 26, 2020 Final Diagnosis Problems Medical Problems: (1) Dysarthria Status: Acute (2) Headache Status: Acute Brief Hospital Course Allergies Allergies Coded Allergies Type Severity Reaction Last Updated Verified No Known Drug Allergies 05/14/17 No Vital Signs Vital Signs Date Time Temp Pulse Resp B/P (MAP) Pulse Ox O2 Delivery O2 Flow Rate FiO2 04/26/20 15:25 97.4 70 20 127/62 (83) 94 Room Air 97.4 Lab Results Laboratory Tests Test 04/25/20 18:04 04/25/20 18:05 04/26/20 07:34 04/26/20 07:44 Glucose (Fingerstick) 118 mg/dL (70-99) 136 mg/dL (70-99) White Blood Count 9.2 x10^3/uL (4.0-11.0) 7.1 x10^3/uL (4.0-11.0) Red Blood Count 5.06 x10^6/uL (4.30-5.70) 5.26 x10^6/uL (4.30-5.70) Hemoglobin 14.5 g/dL (13.0-17.5) 14.8 g/dL (13.0-17.5) Hematocrit 41.9 % (39.0-53.0) 44.1 % (39.0-53.0) Mean Corpuscular Volume 83 fL (79-100) 84 fL (79-100) Mean Corpuscular Hemoglobin 29 pg (25-35) 28 pg (25-35) Mean Corpuscular Hemoglobin Concent 35 g/dL (31-37) 33 g/dL (31-37) Red Cell Distribution Width 14.1 % (11.5-14.5) 14.4 % (11.5-14.5) Platelet Count 203 x10^3/uL (140-400) 194 x10^3/uL (140-400) Neutrophils (%) (Auto) 62 % (31-73) 61 % (31-73) Lymphocytes (%) (Auto) 25 % (24-48) 25 % (24-48) Monocytes (%) (Auto) 10 % (0-9) 9 % (0-9) Eosinophils (%) (Auto) 3 % (0-3) 4 % (0-3) Basophils (%) (Auto) 1 % (0-3) 1 % (0-3) Neutrophils # (Auto) 5.7 x10^3/uL (1.8-7.7) 4.3 x10^3/uL (1.8-7.7) Lymphocytes # (Auto) 2.2 x10^3/uL (1.0-4.8) 1.8 x10^3/uL (1.0-4.8) Monocytes # (Auto) 0.9 x10^3/uL (0.0-1.1) 0.7 x10^3/uL (0.0-1.1) Eosinophils # (Auto) 0.3 x10^3/uL (0.0-0.7) 0.3 x10^3/uL (0.0-0.7) Basophils # (Auto) 0.1 x10^3/uL (0.0-0.2) 0.1 x10^3/uL (0.0-0.2) Prothrombin Time 15.9 SEC (11.7-14.0) Prothromb Time International Ratio 1.3 (0.8-1.1) Activated Partial Thromboplast Time 34 SEC (24-38) Sodium Level 133 mmol/L (136-145) 140 mmol/L (136-145) Potassium Level 4.4 mmol/L (3.5-5.1) 5.4 mmol/L (3.5-5.1) Chloride Level 99 mmol/L (98-107) 103 mmol/L (98-107) Carbon Dioxide Level 24 mmol/L (21-32) 29 mmol/L (21-32) Anion Gap 10 (6-14) 8 (6-14) Blood Urea Nitrogen 28 mg/dL (8-26) 24 mg/dL (8-26) Creatinine 1.3 mg/dL (0.7-1.3) 1.1 mg/dL (0.7-1.3) Estimated GFR (Cockcroft-Gault) 53.3 64.6 BUN/Creatinine Ratio 22 (6-20) Glucose Level 105 mg/dL (70-99) 122 mg/dL (70-99) Calcium Level 8.9 mg/dL (8.5-10.1) 9.4 mg/dL (8.5-10.1) Total Bilirubin 0.8 mg/dL (0.2-1.0) Aspartate Amino Transf (AST/SGOT) 19 U/L (15-37) Alanine Aminotransferase (ALT/SGPT) 33 U/L (16-63) Alkaline Phosphatase 48 U/L (46-116) Troponin I Quantitative < 0.017 ng/mL (0.000-0.055) Total Protein 7.4 g/dL (6.4-8.2) Albumin 4.1 g/dL (3.4-5.0) Albumin/Globulin Ratio 1.2 (1.0-1.7) Triglycerides Level 158 mg/dL (0-150) Cholesterol Level 167 mg/dL (0-200) LDL Cholesterol, Calculated 92 mg/dL (0-100) VLDL Cholesterol, Calculated 32 mg/dL (0-40) Non-HDL Cholesterol Calculated 124 mg/dL (0-129) HDL Cholesterol 43 mg/dL (40-60) Cholesterol/HDL Ratio 3.9 Test 04/26/20 11:22 Glucose (Fingerstick) 203 mg/dL (70-99) Laboratory Tests Test 04/25/20 18:04 04/25/20 18:05 04/26/20 07:34 04/26/20 07:44 Glucose (Fingerstick) 118 mg/dL (70-99) 136 mg/dL (70-99) White Blood Count 9.2 x10^3/uL (4.0-11.0) 7.1 x10^3/uL (4.0-11.0) Red Blood Count 5.06 x10^6/uL (4.30-5.70) 5.26 x10^6/uL (4.30-5.70) Hemoglobin 14.5 g/dL (13.0-17.5) 14.8 g/dL (13.0-17.5) Hematocrit 41.9 % (39.0-53.0) 44.1 % (39.0-53.0) Mean Corpuscular Volume 83 fL (79-100) 84 fL (79-100) Mean Corpuscular Hemoglobin 29 pg (25-35) 28 pg (25-35) Mean Corpuscular Hemoglobin Concent 35 g/dL (31-37) 33 g/dL (31-37) Red Cell Distribution Width 14.1 % (11.5-14.5) 14.4 % (11.5-14.5) Platelet Count 203 x10^3/uL (140-400) 194 x10^3/uL (140-400) Neutrophils (%) (Auto) 62 % (31-73) 61 % (31-73) Lymphocytes (%) (Auto) 25 % (24-48) 25 % (24-48) Monocytes (%) (Auto) 10 % (0-9) 9 % (0-9) Eosinophils (%) (Auto) 3 % (0-3) 4 % (0-3) Basophils (%) (Auto) 1 % (0-3) 1 % (0-3) Neutrophils # (Auto) 5.7 x10^3/uL (1.8-7.7) 4.3 x10^3/uL (1.8-7.7) Lymphocytes # (Auto) 2.2 x10^3/uL (1.0-4.8) 1.8 x10^3/uL (1.0-4.8) Monocytes # (Auto) 0.9 x10^3/uL (0.0-1.1) 0.7 x10^3/uL (0.0-1.1) Eosinophils # (Auto) 0.3 x10^3/uL (0.0-0.7) 0.3 x10^3/uL (0.0-0.7) Basophils # (Auto) 0.1 x10^3/uL (0.0-0.2) 0.1 x10^3/uL (0.0-0.2) Prothrombin Time 15.9 SEC (11.7-14.0) Prothromb Time International Ratio 1.3 (0.8-1.1) Activated Partial Thromboplast Time 34 SEC (24-38) Sodium Level 133 mmol/L (136-145) 140 mmol/L (136-145) Potassium Level 4.4 mmol/L (3.5-5.1) 5.4 mmol/L (3.5-5.1) Chloride Level 99 mmol/L (98-107) 103 mmol/L (98-107) Carbon Dioxide Level 24 mmol/L (21-32) 29 mmol/L (21-32) Anion Gap 10 (6-14) 8 (6-14) Blood Urea Nitrogen 28 mg/dL (8-26) 24 mg/dL (8-26) Creatinine 1.3 mg/dL (0.7-1.3) 1.1 mg/dL (0.7-1.3) Estimated GFR (Cockcroft-Gault) 53.3 64.6 BUN/Creatinine Ratio 22 (6-20) Glucose Level 105 mg/dL (70-99) 122 mg/dL (70-99) Calcium Level 8.9 mg/dL (8.5-10.1) 9.4 mg/dL (8.5-10.1) Total Bilirubin 0.8 mg/dL (0.2-1.0) Aspartate Amino Transf (AST/SGOT) 19 U/L (15-37) Alanine Aminotransferase (ALT/SGPT) 33 U/L (16-63) Alkaline Phosphatase 48 U/L (46-116) Troponin I Quantitative < 0.017 ng/mL (0.000-0.055) Total Protein 7.4 g/dL (6.4-8.2) Albumin 4.1 g/dL (3.4-5.0) Albumin/Globulin Ratio 1.2 (1.0-1.7) Triglycerides Level 158 mg/dL (0-150) Cholesterol Level 167 mg/dL (0-200) LDL Cholesterol, Calculated 92 mg/dL (0-100) VLDL Cholesterol, Calculated 32 mg/dL (0-40) Non-HDL Cholesterol Calculated 124 mg/dL (0-129) HDL Cholesterol 43 mg/dL (40-60) Cholesterol/HDL Ratio 3.9 Test 04/26/20 11:22 Glucose (Fingerstick) 203 mg/dL (70-99) Brief Hospital Course Mr. Hansen is a 79 old male who presented with TIA. Consultation was placed to neurology. He was continued on statin and home Eliquis. Per neurology recommendations, will hold off adding aspirin. Symptoms of dysarthria and headache resolved. MRI brain was performed, and patient was discharged home following receipt of results. Discharge Information Condition at Discharge: Improved Follow Up: Weeks Disposition/Orders: D/C to Home Scheduled Apixaban (Eliquis) 5 Mg Tablet, 5 MG PO DAILY, (Reported) Entered as Reported by: FABIANO WALKER on 08/20/17 1228 Last Action: Continued on 04/25/202126 by MAGI SAMPSON MD Aspirin (Aspir 81) 81 Mg Tablet.dr, 1 TAB PO DAILY, #30 Ref 5 (Reported) Entered as Reported by: MAEVE LANCASTER on 10/21/15 0839 Last Action: Continued on 04/25/202126 by MAGI SAMPSON MD Atorvastatin Calcium (Atorvastatin Calcium) 40 Mg Tablet, 40 MG PO QHS for CVA, #30 Ref 3 Prescribed by: MAGI SAMPSON MD on 04/26/20 1532 Cephalexin (Keflex) 500 Mg Capsule, 1 CAP PO BID, #14 Ref 0 Prescribed by: OMA WALLACE APRN on 10/07/18 1045 Last Action: HELD on 04/25/202126 by MAGI SAMPSON MD Glipizide (Glipizide) 5 Mg Tablet, 0.5 TAB PO DAILY, #60 Ref 3 (Reported) Entered as Reported by: PATY LÓPEZ on 12/22/1537 Last Action: HELD on 04/25/202126 by MAGI SAMPSON MD Lisinopril (Lisinopril) 5 Mg Tablet, 1 TAB PO DAILY, #30 Ref 5 (Reported) Entered as Reported by: FABIANO WALKER on 08/20/17 1228 Last Action: Continued on 04/25/202126 by MAGI SAMPSON MD Metformin Hcl (Metformin Hcl) 1,000 Mg Tablet, 1.5 TAB PO HS, #60 Ref 5 (Report ed) Next dose bedtime on Saturday Entered as Reported by: PATY LÓPEZ on 12/22/1537 Last Action: HELD on 04/25/202126 by MAGI SAMPSON MD Multivits-Min/Fa/Lycopene/Lut (Centrum Silver Tablet) 1 Each Tablet, 1 EACH PO DAILY, (Reported) Entered as Reported by: MAEVE LANCASTER on 10/21/15 0835 Last Action: HELD on 04/25/202126 by MAGI SAMPSON MD [place]-3 Fatty Acids/Fish Oil (Fish Oil 1,000 Mg Capsule) 1 Each Capsule, 1 EACH PO BID, (Reported) Entered as Reported by: MAEVE LANCASTER on 10/21/15 0836 Last Action: HELD on 04/25/202126 by MAGI SAMPSON MD Pantoprazole Sodium (Protonix ) 40 Mg Tablet.dr, 40 MG PO HS, (Reported) Entered as Reported by: MAEVE LANCASTER on 10/21/15 0840 Last Action: HELD on 04/25/202126 by MAGI SAMPSON MD Pioglitazone Hcl (Actos) 15 Mg Tablet, 15 MG PO DAILY, (Reported) Entered as Reported by: MAEVE LANCASTER on 10/21/15 0840 Last Action: HELD on 04/25/202126 by MAGI SAMPSON MD Sulfamethoxazole/Trimethoprim (Bactrim Ds Tablet) 1 Each Tablet, 1 TAB PO BID for 10 Days, #20 Ref 0 Prescribed by: Tamar Espino APRN on 06/19/19 1355 Last Action: HELD on 04/25/202126 by MAGI SAMPSON MD Scheduled PRN Alprazolam (Xanax) 0.5 Mg Tablet, 0.5 MG PO PRN Q6HRS PRN for ANXIETY / AGITATION, Ref 0 (Reported) Entered as Reported by: MAEVE LANCASTER on 10/21/15 0839 Last Action: Continued on 04/25/202126 by MAGI SAMPSON MD Tizanidine Hcl (Tizanidine Hcl) 4 Mg Tablet, 4 MG PO TID PRN for MUSCLE SPASMS, (Reported) Entered as Reported by: YESSICA HSU on 08/11/18 1011 Last Action: Continued on 04/25/202126 by MAGI SAMPSON MD Tramadol Hcl (Tramadol Hcl) 50 Mg Tablet, 50 MG PO Q6HRS PRN for PAIN, #14 Prescribed by: ROXIE ORTIZ D.O. on 10/06/19 1841 Last Action: Continued on 04/25/202126 by MAGI SAMPSON MD Discontinued Medications Lovastatin (Lovastatin) 40 Mg Tablet, 40 MG PO HS, (Reported) Entered as Reported by: MAEVE LANCASTER on 10/21/15 0841 Last Action: HELD on 04/25/202126 by MAGI SAMPSON MD Meloxicam (Meloxicam) 7.5 Mg Tablet, 1 TAB PO DAILY, #30 Ref 2 (Reported) Entered as Reported by: FABIANO WALKER on 08/20/17 1228 Last Action: HELD on 04/25/202126 by MAGI SAMPSON MD Justicifation of Admission Dx: Justifications for Admission: Justification of Admission Dx: N/A MAGI SAMPSON MD Apr 26, 2020 15:37
--- NOTE | 2020-04-26 15:57 | RAD ---
EXAM: Brain MRI without contrast. HISTORY: Transient ischemic attack. TECHNIQUE: Multiplanar, multisequence magnetic resonance imaging of the brain was performed without c ontrast. COMPARISON: CT dated 04/25/2020 FINDINGS: There is no restricted diffusion to suggest acute or subacute infarction. There is no susce ptibility effect to suggest hemorrhage. There is no mass effect or midline shift. There is moderate v entricular enlargement due to cerebral volume loss. There is superimposed ex vacuo dilatation of the left lateral ventricle due to a chronic left temporal occipital junction infarct. There is a chronic infarct within the medial right occipital lobe. There are chronic infarcts within the left greater th an right basal ganglia and centrum semiovale. There are extensive scattered areas of signal change throughout the cerebral white matter, likely due to chronic small vessel disease. There are focal areas of encephalomalacia within the cerebellar hem ispheres due to chronic infarcts. There are chronic lacunar infarcts within the bilateral thalami. Th e orbits are unremarkable. The paranasal sinuses are clear. There is fluid within the mastoid air marianne ls. There is absent flow void within the distal left vertebral artery at the skull base. IMPRESSION: 1. No acute intracranial finding. 2. 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 3. Extensive white matter changes, likely due to chronic small vessel disease. 4. Cerebral atrophy. 5. Suspected low flow or occlusion involving the distal left vertebral artery at the skull base. This can be better assessed with a CT angiogram or MR angiogram. Electronically signed by: Shikha Owens MD (04/26/2020 3:55 PM) [id number]
--- NOTE | 2020-04-26 17:37 | NUR ---
Discharge Note: MAGI MAE [address] Discharge instructions and discharge home medications reviewed with Patient and a copy given. All questions have been answered and understanding verbalized. The following instructions and handouts were given: ARANA Discontinued lines and drains: Peripheral IV intact. Patient discharged to Home or Self Care with Family Member via Amb[facility]
[2020-04-27] MEDS ORDERED: ASPIRIN ENTERIC COATED 81 MG TABLET.DR. PO SCH (08:00)
== END 2020-04-26 17:38 | disposition home or self-care (01) | DRG 69 ==
LOC: ER 17:51 → ED HOLD 18:42 → 2 SOUTH 04-26 02:14
PROVIDERS: ADMIT Family Medicine; ATTEND Family Medicine
DX: G45.9 Transient cerebral ischemic attack, unspecified (principal); E11.40 Type 2 diabetes mellitus with diabetic neuropathy, unspecified; E53.8 Deficiency of other specified B group vitamins; E78.5 Hyperlipidemia, unspecified; E86.0 Dehydration; I10 Essential (primary) hypertension; I35.0 Nonrheumatic aortic (valve) stenosis; I48.91 Unspecified atrial fibrillation; J44.9 Chronic obstructive pulmonary disease, unspecified; Z79.01 Long term (current) use of anticoagulants; Z79.82 Long term (current) use of aspirin; Z82.49 Family history of ischemic heart disease and other diseases of the circulatory system; Z83.3 Family history of diabetes mellitus; Z86.73 Personal history of transient ischemic attack (TIA), and cerebral infarction without residual deficits; Z87.730 Personal history of (corrected) cleft lip and palate; Z87.891 Personal history of nicotine dependence; Z95.2 Presence of prosthetic heart valve; Z96.611 Presence of right artificial shoulder joint; Z96.612 Presence of left artificial shoulder joint; Z96.652 Presence of left artificial knee joint; F41.9 Anxiety disorder, unspecified; G43.909 Migraine, unspecified, not intractable, without status migrainosus; K21.9 Gastro-esophageal reflux disease without esophagitis; M19.90 Unspecified osteoarthritis, unspecified site; R47.1 Dysarthria and anarthria
CPT/HCPCS: 36415; 70450; 70551; 80048; 80053; 80061; 82962; 84484; 85025; 85610; 85730; 93005; 96374; 96375; 96376; 99285; J2270; J2405; J7030; 92610-GN; 97110-GP

== ENCOUNTER → 2020-06-23 | Outpatient (CLI) | payer MEDICARE ==
[~2020-06-23] MED LIST changes: +ATOR40TA59 PO
--- NOTE | 2020-06-24 09:21 | RAD ---
MR#: [id number] Date of Study: 06/23/2020 Ordering Physician: IDGNA PERRY, Referring Physician: DIGNA PERRY, Tech: John Bryant MBA, RDMS, RVT, RDCS, RTR APPROVED REPORT Patient Location: OUT-PATIENT Indications Claudication:Bilaterally Findings Right arm 106, left arm 116 Right ankle PT 117, DP 111 Left ankle PT 101, DP 100 Right MORENA 1.0, left MORENA 0.87 Critical Notification Critical Value: No <Conclusion> 1. Mildly abnormal left-sided MORENA. Signed by : Digna Perry, Electronically Approved : 06/24/2020 09:20:55
--- NOTE | 2020-06-24 09:23 | RAD ---
MR#: [id number] Date of Study: 06/23/2020 Ordering Physician: DIGNA PERRY, Referring Physician: DIGNA PERRY, Tech: John Bryant MBA, RDMS, RVT, RDCS, RTR APPROVED REPORT Patient Location: OUT-PATIENT Indications Claudication:Bilaterally VELOCITY AND DOPPLER WAVEFORM ANALYSIS RIGHT cm/secWaveformSeverity LEFT cm/secWaveform Severity dCFA 203.0MonophasicdCFA 318.0Monophasic Prof Fem Art. 125.0BiphasicProf Fem Art. 40.0Biphasic Fem Art Prox. 101.0MonophasicFem Art Prox. 85.0Monophasic Fem Art Mid. 204.0MonophasicFem Art Mid. 115.0Monophasic Fem Art Dist. 524.0MonophasicFem Art Dist. 121.0Monophasic Pop Art(Fossa) 83.0MonophasicPop Art(AK) 106.0Monophasic ROASTER SUPERVISOR Prox. 80.0MonophasicPTA Prox. 62.0 ROASTER SUPERVISOR Dist. 105.0MonophasicPTA Dist. ANGELES Prox. 74.0MonophasicATA Prox. 63.0Monophasic DPA 30MonophasicDPA 50Monophasic Findings Lower extremity arterial Doppler reveals monophasic waveforms throughout the lower extremity arterial cords. On the right side there is likely greater than 70% stenosis involving the distal superficial femoral artery. There is two-vessel runoff below the knee. On the left side there is likely greater than 50 % stenosis involving the left common femoral artery with one-vessel runoff below the knee. Critical Notification Critical Value: No <Conclusion> 1. 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 Signed by : Digna Perry, Electronically Approved : 06/24/2020 09:23:16
== END ==
LOC: US 14:15
PROVIDERS: ATTEND Internal Medicine Cardiovascular Disease
DX: I70.203 Unspecified atherosclerosis of native arteries of extremities, bilateral legs (principal)
CPT/HCPCS: 93922; 93925

== ENCOUNTER 2020-08-31 12:04 | Emergency (ER) | payer MEDICARE ==
[~2020-08-31] VITALS: Ht 172.7 cm; Wt 92.4 kg
--- NOTE | 2020-08-31 12:22 | EKG ---
[facility] [address] [place] [address] Test Date: 2020-08-31 Test Time: 12:14:36 Pat Name: MAGI MAE Department: Room: Gender: M Ladle Pourer: : 1940 Requested By: VERENICE BECERRA Order Number: [id number] Reading MD: Measurements Intervals [place] Rate: 65 P: NC: QRS: -34 QRSD: 92 T: 118 QT: 406 QTc: 423 Interpretive Statements IRREGULAR RHYTHM, NO P-WAVE FOUND ABNORMAL LEFT AXIS DEVIATION LEFT ANTERIOR FASCICULAR BLOCK QRS(T) CONTOUR ABNORMALITY CONSISTENT WITH ANTEROSEPTAL INFARCT PROBABLY OLD T ABNORMALITY IN HIGH LATERAL LEADS ABNORMAL ECG RI6.02 No previous ECG available for comparison
[2020-08-31 12:50] LABS: BASO # 0.1 x10^3/uL (0.0-0.2); BASO % 1 % (0-3); EOS # 0.2 x10^3/uL (0.0-0.7); EOS % 2 % (0-3); HEMOGLOBIN 13.2 g/dL (13.0-17.5); LYMPH # 1.3 x10^3/uL (1.0-4.8); LYMPH % 14 % (24-48); MEAN CORPUSCULAR HEMOGLOBIN 28 pg (25-35); MEAN CORPUSCULAR HGB CONC 34 g/dL (31-37); MEAN CORPUSCULAR VOLUME 81 fL (79-100); MONO # 0.9 x10^3/uL (0.0-1.1); MONO % 10 % (0-9); NEUT # 7.4 x10^3/uL (1.8-7.7); NEUT % 75 % (31-73); PLATELET COUNT 190 x10^3/uL (140-400); RED CELL DISTRIBUTION WIDTH 15.3 % (11.5-14.5); WHITE BLOOD COUNT 9.8 x10^3/uL (4.0-11.0)
[2020-08-31 12:58] LABS: CALCIUM 8.7 mg/dL (8.5-10.1); CREATININE 1.2 mg/dL (0.7-1.3); GFR 58.4; POTASSIUM 4.7 mmol/L (3.5-5.1)
[2020-08-31 13:04] LABS: ALBUMIN 3.4 g/dL (3.4-5.0); MAGNESIUM 1.8 mg/dL (1.8-2.4); TOTAL BILIRUBIN 0.7 mg/dL (0.2-1.0); TOTAL PROTEIN 6.7 g/dL (6.4-8.2)
--- NOTE | 2020-08-31 13:31 | RAD ---
INDICATION: Reason: headache for two days / Spl. Instructions: / History: COMPARISON: April 25, 2020 TECHNIQUE: Axial CT images obtained through the head without intravenous contrast. One or more of the following individualized dose reduction techniques were utilized for this examinat ion: 1. Automated exposure control; 2. Adjustment of the mA and/or kV according to patient size; 3 . Use of iterative reconstruction technique. FINDINGS: No intracranial hemorrhage. No midline shift. Basal cisterns patents. Ventricles and sulci are globally prominent. No acute osseous abnormality. Orbits and paranasal sinuses unremarkable. Scattered foci of low attenuation within the white matter. Calcific atherosclerosis. Repeat demonstration of encephalomalacia which could be from prior insult. IMPRESSION: 1. No acute intracranial hemorrhage. 2. Scattered regions of low attenuation within the white matter. Non-specific in nature but frequen tly secondary to chronic small vessel ischemic disease. 3. Prominence of ventricles and sulci which is frequently secondary to age related volume loss. Give n the degree of ventricular prominence superimposed normal pressure hydrocephalus not excluded. Electronically signed by: Richard Lema MD (08/31/2020 1:28 PM) [id number]
[2020-08-31] MEDS ORDERED: MORPHINE SULFATE 2 MG/ML VIAL. IV ONE (14:00)
--- NOTE | 2020-08-31 15:08 | PHYS DOC ---
Past Medical History Past Medical History: A-Fib, CAD, CVA, Diabetes-Type II, Stroke, Other Additional Past Medical Histor: osteoarthritis,back pain,cleft lip,poor historian Past Surgical History: Knee Replacement, Other Additional Past Surgical Histo: aoritic valve surgery, bilat shoulder surgery, bilat knee surgery Smoking Status: Former Smoker Alcohol Use: None Drug Use: None General Adult EDM: Chief Complaint: HEADACHE HPI: HPI: Patient is a 79 year old male who presented to ER due to headache and neck pain for 2 days. Patient wanted make sure that he does not have another stroke. Patient drove himself here for evaluation. Denies any injury. Patient has history of atrial fibrillation, history of CVA in the past, history of diabetic, hypertension. Patient is on Eliquis. Patient denies any weakness or numbness anywhere, denies any blurry vision. Patient denies any chest pain, no nausea vomiting. Patient denies any abdominal pain. Patient denies any slurred speech. Patient denies any neck stiffness. Review of Systems: Review of Systems: Constitutional: Denies fever or chills. [] Eyes: Denies change in visual acuity. [] HENT: Denies nasal congestion or sore throat. [] Respiratory: Denies cough or shortness of breath. [] Cardiovascular: Denies chest pain or edema. [] GI: Denies abdominal pain, nausea, vomiting, bloody stools or diarrhea. [] : Denies dysuria. [] Musculoskeletal: Denies back pain or joint pain. [] Integument: Denies rash. [] Neurologic: Denies headache, focal weakness or sensory changes. [] Endocrine: Denies polyuria or polydipsia. [] Lymphatic: Denies swollen glands. [] Psychiatric: Denies depression or anxiety. [] Heart Score: C/O Chest Pain: N/A Risk Factors: Risk Factors: DM, Current or recent (<one month) smoker, HTN, HLP, family history of CAD, obesity. Risk Scores: Score 0 - 3: 2.5% MACE over next 6 weeks - Discharge Home Score 4 - 6: 20.3% MACE over next 6 weeks - Admit for Clinical Observation Score 7 - 10: 72.7% MACE over next 6 weeks - Early Invasive Strategies Current Medications: Current Medications Medications (Trade) Dose Ordered Sig/Katlin Start Time Stop Time Status Last Admin Dose Admin Acetaminophen (Tylenol) 1,000 mg 1X ONCE 08/31/20 15:15 08/31/20 15:16 08/31/20 15:04 1,000 MG Ibuprofen (Motrin) 800 mg 1X ONCE 08/31/20 15:15 08/31/20 15:16 08/31/20 15:04 800 MG Morphine Sulfate (Morphine Sulfate) 2 mg 1X ONCE 08/31/20 14:00 08/31/20 14:01 DC Allergies: Allergies: Allergies Coded Allergies Type Severity Reaction Last Updated Verified No Known Drug Allergies 05/14/17 No Physical Exam: PE: Constitutional: Well developed, well nourished, no acute distress, non-toxic appearance. [] HENT: Normocephalic, atraumatic, bilateral external ears normal, oropharynx moist, no oral exudates, nose normal. [] Eyes: PERRLA, EOMI, conjunctiva normal, no discharge. [] Neck: Normal range of motion, no tenderness, supple, no stridor. There is no neck stiffness. Cardiovascular:Heart rate regular rhythm, no murmur [] Lungs & Thorax: Bilateral breath sounds clear to auscultation [] Abdomen: Bowel sounds normal, soft, no tenderness, no masses, no pulsatile masses. [] Skin: Warm, dry, no erythema, no rash. [] Back: No tenderness, no CVA tenderness. [] Extremities: No tenderness, no cyanosis, no clubbing, ROM intact, no edema. [] Neurologic: Alert and oriented X 3, normal motor function, normal sensory function, no focal deficits noted. Normal speech, normal memory. Psychologic: Affect normal, judgement normal, mood normal. [] Current Patient Data: Labs: Laboratory Tests Test 08/31/20 12:14 08/31/20 12:34 Glucose (Fingerstick) 189 mg/dL (70-99) H White Blood Count 9.8 x10^3/uL (4.0-11.0) Red Blood Count 4.80 x10^6/uL (4.30-5.70) Hemoglobin 13.2 g/dL (13.0-17.5) Hematocrit 39.0 % (39.0-53.0) Mean Corpuscular Volume 81 fL (79-100) Mean Corpuscular Hemoglobin 28 pg (25-35) Mean Corpuscular Hemoglobin Concent 34 g/dL (31-37) Red Cell Distribution Width 15.3 % (11.5-14.5) H Platelet Count 190 x10^3/uL (140-400) Neutrophils (%) (Auto) 75 % (31-73) H Lymphocytes (%) (Auto) 14 % (24-48) L Monocytes (%) (Auto) 10 % (0-9) H Eosinophils (%) (Auto) 2 % (0-3) Basophils (%) (Auto) 1 % (0-3) Neutrophils # (Auto) 7.4 x10^3/uL (1.8-7.7) Lymphocytes # (Auto) 1.3 x10^3/uL (1.0-4.8) Monocytes # (Auto) 0.9 x10^3/uL (0.0-1.1) Eosinophils # (Auto) 0.2 x10^3/uL (0.0-0.7) Basophils # (Auto) 0.1 x10^3/uL (0.0-0.2) Sodium Level 137 mmol/L (136-145) Potassium Level 4.7 mmol/L (3.5-5.1) Chloride Level 102 mmol/L (98-107) Carbon Dioxide Level 24 mmol/L (21-32) Anion Gap 11 (6-14) Blood Urea Nitrogen 28 mg/dL (8-26) H Creatinine 1.2 mg/dL (0.7-1.3) Estimated GFR (Cockcroft-Gault) 58.4 BUN/Creatinine Ratio 23 (6-20) H Glucose Level 210 mg/dL (70-99) H Calcium Level 8.7 mg/dL (8.5-10.1) Magnesium Level 1.8 mg/dL (1.8-2.4) Total Bilirubin 0.7 mg/dL (0.2-1.0) Aspartate Amino Transferase (AST) 15 U/L (15-37) Alanine Aminotransferase (ALT) 23 U/L (16-63) Alkaline Phosphatase 53 U/L (46-116) Troponin I Quantitative < 0.017 ng/mL (0.000-0.055) Total Protein 6.7 g/dL (6.4-8.2) Albumin 3.4 g/dL (3.4-5.0) Albumin/Globulin Ratio 1.0 (1.0-1.7) Laboratory Tests 08/31/20 12:34 Laboratory Tests 08/31/20 12:34 Vital Signs: Vital Signs Date Time Temp Pulse Resp B/P (MAP) Pulse Ox O2 Delivery O2 Flow Rate FiO2 08/31/20 12:04 97.9 70 20 135/70 (91) 97 Room Air 97.9 EKG: EKG: EKG was done at 1214, heart rate of 65 bpm ,atrial fibrillation left axis deviation, no ST segment elevation. Radiology/Procedures: Radiology/Procedures: [][facility] [address] [place] [address] IMAGING REPORT Signed PATIENT: MAGI MAE ACCOUNT: [id number] : 1940 LOCATION: ER AGE: 79 SEX: M EXAM STATUS: REG ER ORD. PHYSICIAN: VERENICE BECERRA DO REASON: headache for two days PROCEDURE: CT HEAD WO CONTRAST INDICATION: Reason: headache for two days / Spl. Instructions: / History: COMPARISON: April 25, 2020 TECHNIQUE: Axial CT images obtained through the head without intravenous contrast. One or more of the following individualized dose reduction techniques were utilized for this examination: 1. Automated exposure control; 2. Adjustment of the mA and/or kV according to patient size; 3. Use of iterative reconstruction technique. FINDINGS: No intracranial hemorrhage. No midline shift. Basal cisterns patents. Ventricles and sulci are globally prominent. No acute osseous abnormality. Orbits and paranasal sinuses unremarkable. Scattered foci of low attenuation within the white matter. Calcific atherosclerosis. Repeat demonstration of encephalomalacia which could be from prior insult. IMPRESSION: 1. No acute intracranial hemorrhage. 2. Scattered regions of low attenuation within the white matter. Non-specific in nature but frequently secondary to chronic small vessel ischemic disease. 3. Prominence of ventricles and sulci which is frequently secondary to age related volume loss. Given the degree of ventricular prominence superimposed normal pressure hydrocephalus not excluded. Electronically signed by: Tomas Fu MD (08/31/2020 1:28 PM) [id number] DICTATED and SIGNED BY: TOMAS FU MD DATE: 08/31/20 [id number] 0 Course & Med Decision Making: Course & Med Decision Making Pertinent Labs and Imaging studies reviewed. (See chart for details) Patient is a 79-year-old male who presented to ER due to headache. Patient had no neck stiffness, no signs of meningitis. Patient had no focal neurological deficits, his speech was clear, he can move all his extremity without a problem. His NIH stroke scale is 0. Patient is already on Eliquis. EKG showed atrial fibrillation with rate control. CT head did not show any acute problem. Horacio milian will be discharged home, he will need to follow-up with his family physician for further evaluation Dragon Disclaimer: Dragon Disclaimer: This electronic medical record was generated, in whole or in part, using a voice recognition dictation system. Departure Departure Impression: Primary Impression: Headache Disposition: HOME / SELF CARE / HOMELESS Condition: IMPROVED Referrals: ROXIE CORNELIUS MD (PCP) please follow up with your doctor this week for reevaluation Patient Instructions: General Headache Without Cause Additional Instructions: Thank you for visiting our Emergency Department. We appreciate you trusting us with your care. If any additional problems come up don't hesitate to return to visit us. Please follow up with your primary care provider so they can plan additional care if needed and know about the problem that you had. If symptoms worsen come back to the Emergency Department. Any concerning symptoms that start such as chest pain, shortness of air, weakness or numbness on one side of the body, running high fevers or any other concerning symptoms return to the ER. VERENICE BECERRA DO August 31, 2020 15:08
[2020-08-31] MEDS ORDERED: IBUPROFEN 400 MG TABLET. PO ONE (15:15)
[2020-08-31] MEDS ORDERED: ACETAMINOPHEN 500 MG TABLET PO ONE (15:15)
[2020-08-31 15:22] VITALS: BP 125/58
== END 2020-08-31 15:49 | disposition home or self-care (01) ==
LOC: ER 12:04
DX: R51.9 Headache, unspecified (principal); M54.2 Cervicalgia; I48.91 Unspecified atrial fibrillation; E11.9 Type 2 diabetes mellitus without complications; I25.10 Atherosclerotic heart disease of native coronary artery without angina pectoris; Z86.73 Personal history of transient ischemic attack (TIA), and cerebral infarction without residual deficits; Z87.891 Personal history of nicotine dependence
CPT/HCPCS: 36415; 70450; 80053; 82962; 83735; 84484; 85025; 93005; 99284-25

== ENCOUNTER 2020-10-27 15:09 | Emergency (ER) | payer MEDICARE ==
[~2020-10-27] VITALS: Ht 177.8 cm; Wt 86.0 kg
[~2020-10-27 15:09] MED LIST changes: -LISI-517 PO; -LISI2.5T PO; +LISI2.5T12 PO; +LISI5TAB15 PO; +TIZA-75 PO; -TIZA4TAB2 PO
--- NOTE | 2020-10-27 15:24 | PHYS DOC ---
Past Medical History Past Medical History: A-Fib, CAD, CVA, Diabetes-Type II, Stroke, Other Additional Past Medical Histor: osteoarthritis,back pain,cleft lip,poor historian Past Surgical History: Knee Replacement, Other Additional Past Surgical Histo: aoritic valve surgery, bilat shoulder surgery, bilat knee surgery Smoking Status: Former Smoker Alcohol Use: None Drug Use: None General Adult HPI: HPI: Patient is a 80 year old male presenting via EMS for lightheadedness. Reports onset was approximately 1 hour ago. 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 Patient did not fall, was able to walk back inside and sit down with improvement in symptoms. He contacted his daughter who got concerned given his history of CVA and heart disease and advised him to call EMS for transport to our facility for arrival. Patient reports his symptoms were transient in nature and self resolved in less than 10 minutes. On arrival, patient was found to be hemodynamically stable with an unremarkable glucose and EKG. He was transported to our facility for further evaluation. On arrival, patient has no complaints. No recent changes in health, trauma, concerning ingestion, sick contact, recent travel, fever, ripping or tearing sensation in chest, no shortness of breath or cough. No changes in motor or sensory or neuro function past baseline Review of Systems: Review of Systems: Fourteen body systems of review of systems have been reviewed. See HPI for pertinent positives and negative responses, other dolan all other systems are negative, non-pertinent or non-contributory Heart Score: C/O Chest Pain: Yes HEART Score for Chest Pain: HEART Score for Chest Pain Response (Comments) Value History Moderately Suspicious 1 ECG Nonspecific Repolarizatio 1 Age > 65 2 Risk Factors >3 Risk Factors or Hx CAD 2 Troponin < Normal Limit 0 Total 6 Risk Factors: Risk Factors: DM, Current or recent (<one month) smoker, HTN, HLP, family history of CAD, obesity. Risk Scores: Score 0 - 3: 2.5% MACE over next 6 weeks - Discharge Home Score 4 - 6: 20.3% MACE over next 6 weeks - Admit for Clinical Observation Score 7 - 10: 72.7% MACE over next 6 weeks - Early Invasive Strategies Allergies: Allergies: Allergies Coded Allergies Type Severity Reaction Last Updated Verified No Known Drug Allergies 05/14/17 No Physical Exam: PE: Constitutional: Well developed, well nourished, no acute distress, non-toxic appearance. HENT: Normocephalic, atraumatic, bilateral external ears normal, oropharynx moist, no oral exudates, nose normal. Eyes: PERRLA, EOMI, conjunctiva normal, no discharge. Neck: Normal range of motion, no tenderness, supple, no stridor. Cardiovascular: Heart rate regular, irregular rhythm, well-appearing midline scar consistent with prior sternotomy Lungs & Thorax: Bilateral breath sounds clear to auscultation Abdomen: Bowel sounds normal, soft, no tenderness, no masses, no pulsatile masses. Nonsurgical abdomen, no peritoneal signs Skin: Warm, dry, no erythema, no rash. Back: No tenderness, no CVA tenderness. Extremities: No tenderness, no cyanosis, no clubbing, ROM intact, no edema. Neurologic: Alert and oriented X 3, cranial nerves II through XII intact, normal motor & sensory function, no focal deficits noted. Does have slight difficulty with speech production which is at baseline per son-in-law who is at bedside. Psychologic: Affect normal, judgement normal, mood normal. Current Patient Data: Labs: Laboratory Tests Test 10/27/20 13:55 White Blood Count 7.6 x10^3/uL Red Blood Count 4.69 x10^6/uL Hemoglobin 12.9 g/dL Hematocrit 38.3 % Mean Corpuscular Volume 82 fL Mean Corpuscular Hemoglobin 28 pg Mean Corpuscular Hemoglobin Concent 34 g/dL Red Cell Distribution Width 15.6 % Platelet Count 194 x10^3/uL Neutrophils (%) (Auto) 69 % Lymphocytes (%) (Auto) 19 % Monocytes (%) (Auto) 8 % Eosinophils (%) (Auto) 2 % Basophils (%) (Auto) 1 % Neutrophils # (Auto) 5.3 x10^3/uL Lymphocytes # (Auto) 1.4 x10^3/uL Monocytes # (Auto) 0.6 x10^3/uL Eosinophils # (Auto) 0.2 x10^3/uL Basophils # (Auto) 0.1 x10^3/uL Sodium Level 138 mmol/L Potassium Level 5.2 mmol/L Chloride Level 105 mmol/L Carbon Dioxide Level 23 mmol/L Anion Gap 10 Blood Urea Nitrogen 31 mg/dL Creatinine 1.1 mg/dL Estimated GFR (Cockcroft-Gault) 64.4 Glucose Level 136 mg/dL Calcium Level 8.6 mg/dL Troponin I Quantitative < 0.017 ng/mL JS-Psm-C-Type Natriuretic Peptide 2373 pg/mL Current Medications Medications (Trade) Dose Ordered Sig/Katlin Route PRN Reason Start Time Stop Time Status Last Admin Dose Admin Aspirin (Aspirin Chewable) 324 mg 1X ONCE PO 10/27/20 15:30 10/27/20 15:31 DC 10/27/20 15:50 Vital Signs: Vital Signs Date Time Temp Pulse Resp B/P (MAP) Pulse Ox O2 Delivery O2 Flow Rate FiO2 10/27/20 15:19 98.1 66 16 93/52 (80) 94 Room Air 98.1 Vital Signs Date Time Temp Pulse Resp B/P (MAP) Pulse Ox O2 Delivery O2 Flow Rate FiO2 10/27/20 15:19 98.1 66 16 93/52 (80) 94 Room Air 98.1 EKG: EKG: EKG ordered and interpreted by myself at 1516 hrs. shows atrial fibrillation at 77 bpm, unremarkable intervals, left axis deviation, T wave inversion noted in lead aVL, x1 PVC present, no STEMI Radiology/Procedures: Radiology/Procedures: Site ID: [id number] EXAMINATION: XR CHEST 1V. HISTORY: 80 years Male Reason: DIZZINESS / . COMPARISON: May 12, 2019. Findings: The interstitial markings are slightly prominent similar to the previous exam with no focal infiltrate. The heart size is slightly enlarged. There is no effusion or pneumothorax. The mediastinum and arabella appear unremarkable. Impression: No acute process. Electronically signed by: Nghia Stuart MD (10/27/2020 3:36 PM) [id number] Course & Med Decision Making: Course & Med Decision Making ABCs unremarkable. I disclosed entirety of ER findings and discussed there were no obvious emergent and/or surgical findings. I discussed CT head imaging with patient and son in law at bedside who had recent unremarkable scan August 2020, given patient remained asymptomatic throughout entirety of ER visit with baseline mentation and no focal deficits this was deferred. 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 I disclosed high risk for GLENIS and recommended admission but patient continuing to defer. Patient has good access to care, son-in-law is amenable with patient's choice to return home given he is at baseline state. I also disclosed hyperkalemia, patient admits bananas are his favorite food and eats a lot of these, I asked him to avoid this and discussed need for repeat lab draw with PCP. Plan of care discussed at length with need for close outpatient follow-up to review today's ER visit stressed. Strict return precautions were also discussed at length with good understanding by patient and son-in-law. Patient and son-in-law voiced understanding and agreement with the plan. Patient knows to come back for repeat evaluation if concerning signs or symptoms present prior to outpatient follow-up. Hemodynamically stable, ambulatory and well-appearing at time of disposition. Dragon Disclaimer: Dragon Disclaimer: This electronic medical record was generated, in whole or in part, using a voice recognition dictation system. Departure Departure Impression: Primary Impression: Chest pain, unspecified Additional Impressions: Lightheadedness Hyperkalemia Disposition: HOME / SELF CARE / HOMELESS Condition: STABLE Referrals: ROXIE CORNELIUS MD (PCP) Additional Instructions: You were seen for a self-limiting episode of lightheadedness and chest pressure. Your workup did not show any acute abnormalities today, but does not indicate that you are not having ongoing/active heart disease or other concerning abnormalities such as stroke. I recommended cardiac observation but he declined. We also discussed utility of obtaining CT head imaging while in ER but given your asymptomatic status without any new focal deficits seen recent unremarkable CT head imaging performed August 2020, this was deferred. Ultimately, as discussed, you need to call your primary care physician next scheduled business day to review need for close outpatient follow-up for repeat evaluation and repeat labs to check fairly elevated potassium level that was found today. You should return to the ED if you develop worsening chest pain, shortness of breath, fever, abnormal sweating, leg swelling, or any other new or concerning symptoms. ESTER DAY DO Oct 27, 2020 15:24
[2020-10-27] MEDS ORDERED: ASPIRIN CHEWABLE 81 MG TABLET. PO ONE (15:30)
--- NOTE | 2020-10-27 15:39 | RAD ---
Site ID: [id number] EXAMINATION: XR CHEST 1V. HISTORY: 80 years Male Reason: DIZZINESS / . COMPARISON: May 12, 2019. Findings: The interstitial markings are slightly prominent similar to the previous exam with no focal infiltrate. The heart size is slightly enlarged. There is no effusion or pneumothorax. The mediastinum and arabella appear unremarkable. Impression: No acute process. Electronically signed by: Nghia Stuart MD (10/27/2020 3:36 PM) [id number]
[2020-10-27 16:04] LABS: BASO # 0.1 x10^3/uL (0.0-0.2); BASO % 1 % (0-3); EOS # 0.2 x10^3/uL (0.0-0.7); EOS % 2 % (0-3); HEMATOCRIT 38.3 % (39.0-53.0); HEMOGLOBIN 12.9 g/dL (13.0-17.5); LYMPH # 1.4 x10^3/uL (1.0-4.8); LYMPH % 19 % (24-48); MEAN CORPUSCULAR HEMOGLOBIN 28 pg (25-35); MEAN CORPUSCULAR HGB CONC 34 g/dL (31-37); MEAN CORPUSCULAR VOLUME 82 fL (79-100); MONO # 0.6 x10^3/uL (0.0-1.1); MONO % 8 % (0-9); NEUT # 5.3 x10^3/uL (1.8-7.7); NEUT % 69 % (31-73); PLATELET COUNT 194 x10^3/uL (140-400); RED BLOOD COUNT 4.69 x10^6/uL (4.30-5.70); RED CELL DISTRIBUTION WIDTH 15.6 % (11.5-14.5); WHITE BLOOD COUNT 7.6 x10^3/uL (4.0-11.0)
[2020-10-27 16:18] LABS: CALCIUM 8.6 mg/dL (8.5-10.1); CREATININE 1.1 mg/dL (0.7-1.3); GFR 64.4; POTASSIUM 5.2 mmol/L (3.5-5.1)
[2020-10-27 16:46] VITALS: BP 102/82
== END 2020-10-27 17:15 | disposition home or self-care (01) ==
LOC: ER 15:09
DX: R07.2 Precordial pain (principal); R42 Dizziness and giddiness; E87.5 Hyperkalemia; I48.91 Unspecified atrial fibrillation; I25.10 Atherosclerotic heart disease of native coronary artery without angina pectoris; E11.9 Type 2 diabetes mellitus without complications; Z86.73 Personal history of transient ischemic attack (TIA), and cerebral infarction without residual deficits; Z87.891 Personal history of nicotine dependence
CPT/HCPCS: 36415; 71045; 80048; 83880; 84484; 85025; 93005; 99284-25

== ENCOUNTER 2021-06-16 09:02 | Day surgery (SDC) | payer MEDICARE ==
[~2021-06-16] VITALS: Ht 177.8 cm; Wt 88.0 kg
[~2021-06-16 09:02] MED LIST changes: +CIPROFLOXACIN 0.3% OPHTH SOLUTION 5ML BOTTLE. OD ONE; +HYDROmorphone 2 MG/ML INJ. IVP PRN; +IV RINGERS,LACTATED 1000ML 1,000 ML IV SCH; +LIDOCAINE 2% JELLY 6ML IN APPLICATOR. OD ONE; +MORPHINE SULFATE 2 MG/ML INJ. IVP PRN; +PROCHLORPERAZINE 10 MG/2 ML VIAL. IVP PRN; +PROPARACAINE 0.5% OPHTH SOLUTION 15ML BOTTLE. OD ONE; +fentaNYL PF VIAL 100 MCG/2 ML VIAL IVP PRN
[2021-06-16] MEDS ORDERED: BALANCED SALT IRRIG OPHTH SOLN 15 ML BOTTLE. ONE (09:28)
[2021-06-16] MEDS ORDERED: LIDOCAINE 1% PF 30 ML VIAL. ONE (09:28)
[2021-06-16] MEDS ORDERED: NEO/POLYMYX/DEXAMETH OPHTH OINTMENT 3.5GM TUBE. ONE (09:28)
[2021-06-16] MEDS ORDERED: LIDOCAINE 2% JELLY 6ML IN APPLICATOR. ONE (09:28)
[2021-06-16] MEDS ORDERED: CHONDROIT-SOD-HYALURONATE KIT. ONE (09:29)
[2021-06-16] MEDS ORDERED: CHONDROITIN-SOD-HYALURONATE 0.5 ML DISP.SYRIN. ONE (09:29)
[2021-06-16] MEDS ORDERED: LIDOCAINE 1%/PHENYLEPH 1.5% PF OPHTH 1 ML VIAL. ONE (09:30)
[2021-06-16] MEDS ORDERED: LIDOCAINE 1% PF 2 ML VIAL. ONE (09:30)
[2021-06-16 09:44] VITALS: BP 164/93
[2021-06-16] MEDS: CYCLOPENTOLATE 1% OPHTH SOLUTION 2ML BOTTLE. OD SCH ×3 (09:50→10:00)
[2021-06-16] MEDS: PHENYLEPHRINE 10% OPHTH SOLUTION 5ML BOTTLE. OD SCH ×3 (09:50→10:00)
[2021-06-16 12:04] VITALS: BP 178/75
[2021-06-16] MEDS ORDERED: acetaZOLAMIDE 250 MG TABLET. PO ONE (12:15)
--- NOTE | 2021-06-16 12:31 | OP ---
DATE OF SURGERY: 06/16/2021 PREOPERATIVE DIAGNOSES: 1. 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 2. Cataract of the right eye. PROCEDURES: 1. Goniotomy of the right eye with [place] dual blade. 2. Cataract extraction with posterior chamber intraocular lens implantation. DESCRIPTION OF PROCEDURE: The right eye was prepped with Betadine in the usual sterile fashion and draped. A paracentesis was performed followed by instillation of preservative-free lidocaine admixed with phenylephrine and balanced salt solution. A temporal clear corneal incision was made followed by instillation of Viscoat. A capsulorrhexis was performed and the head and microscope were repositioned to visualize the anterior chamber angle. The dual blade was then brought onto the field and approximately 2-3 o'clock hours in the nasal quadrant was excised. The head and microscope were repositioned, followed by hydrodissection and the phacoemulsification handpiece was used to remove the nucleus in a modified stop and chop fashion. The I/A handpiece was used to remove the cortex. Provisc was placed in the anterior chamber and an Chele model [id number] with a power of 19.5 diopters was placed into the capsular bag. Balanced salt solution was used to hydrate the corneal wounds and the viscoelastic evacuated with the I/A handpiece. Once no leak was noted, Maxitrol was placed on the eye and the eye shielded and the patient was sent to the recovery room uneventfully. ANA RINALDI: Blas TID: [id number]
== END 2021-06-16 12:51 | disposition home or self-care (01) ==
LOC: SURG 09:02
PROVIDERS: ATTEND Ophthalmology
DX: E11.36 Type 2 diabetes mellitus with diabetic cataract (principal); H40.10X0 Unspecified open-angle glaucoma, stage unspecified; H25.89 Other age-related cataract; I10 Essential (primary) hypertension; E78.00 Pure hypercholesterolemia, unspecified; I48.91 Unspecified atrial fibrillation; K21.9 Gastro-esophageal reflux disease without esophagitis; M19.90 Unspecified osteoarthritis, unspecified site; F41.9 Anxiety disorder, unspecified; Z86.73 Personal history of transient ischemic attack (TIA), and cerebral infarction without residual deficits; Z87.891 Personal history of nicotine dependence; Z79.899 Other long term (current) drug therapy; Z98.890 Other specified postprocedural states; Z72.89 Other problems related to lifestyle; Z79.82 Long term (current) use of aspirin; Z79.84 Long term (current) use of oral hypoglycemic drugs
CPT/HCPCS: 65820; 66984; 82962; A4930; J0171; J0690; J1580; J3490; V2632

== ENCOUNTER 2021-06-23 09:20 | Day surgery (SDC) | payer MEDICARE ==
[~2021-06-23] VITALS: Ht 177.8 cm; Wt 88.0 kg
[~2021-06-23 09:20] MED LIST changes: +BALANCED SALT IRRIG OPHTH SOLN 15 ML BOTTLE. ONE; +CHONDROIT-SOD-HYALURONATE KIT. ONE; +CHONDROITIN-SOD-HYALURONATE 0.5 ML DISP.SYRIN. ONE; -CIPROFLOXACIN 0.3% OPHTH SOLUTION 5ML BOTTLE. OD ONE; +CIPROFLOXACIN 0.3% OPHTH SOLUTION 5ML BOTTLE. OS ONE; +CYCLOPENTOLATE 1% OPHTH SOLUTION 2ML BOTTLE. OS SCH; +LIDOCAINE 1%/PHENYLEPH 1.5% PF OPHTH 1 ML VIAL. ONE; -LIDOCAINE 2% JELLY 6ML IN APPLICATOR. OD ONE; +LIDOCAINE 2% JELLY 6ML IN APPLICATOR. ONE; +LIDOCAINE 2% JELLY 6ML IN APPLICATOR. OS ONE; +NEO/POLYMYX/DEXAMETH OPHTH OINTMENT 3.5GM TUBE. ONE; -PROPARACAINE 0.5% OPHTH SOLUTION 15ML BOTTLE. OD ONE; +PROPARACAINE 0.5% OPHTH SOLUTION 15ML BOTTLE. OS ONE
[2021-06-23 09:50] VITALS: BP 158/72
[2021-06-23] MEDS: CYCLOPENTOLATE 2% OPHTH SOLUTION 2ML BOTTLE. OS SCH ×3 (09:51→10:01)
[2021-06-23] MEDS: PHENYLEPHRINE 10% OPHTH SOLUTION 5ML BOTTLE. OS SCH ×3 (09:51→10:01)
[2021-06-23] MEDS ORDERED: acetaZOLAMIDE 250 MG TABLET. ONE (12:18)
[2021-06-23 12:27] VITALS: BP 182/75
[2021-06-23] MEDS ORDERED: acetaZOLAMIDE 250 MG TABLET. PO ONE (13:00)
--- NOTE | 2021-06-23 13:46 | OP ---
DATE OF SURGERY: 06/23/2021 PREOPERATIVE DIAGNOSES: 1. Open angle glaucoma of the left eye. 2. Cataract of the left eye. PROCEDURES: 1. Goniotomy of the left eye. 2. Cataract extraction with posterior chamber intraocular lens implantation of the left eye. SURGEON: Juanita Fritz MD. ANESTHESIA: Topical with monitored anesthesia care. DESCRIPTION OF PROCEDURE: The left eye was prepped with Betadine in the usual sterile fashion and draped. A paracentesis was performed followed by instillation of preservative-free lidocaine admixed with phenylephrine and balanced salt solution. A temporal clear corneal incision was made followed by instillation of Viscoat. A capsulorrhexis was performed followed by hydrodissection. The phacoemulsification handpiece was used to remove the nucleus in a modified stop and chop fashion. The I/A handpiece was used to remove the cortex. Provisc was placed in the anterior chamber and an Chele model [id number] with a power of 19.5 diopters was placed into the capsular bag. Balanced salt solution was used to hydrate the corneal wounds and the viscoelastic evacuated with the I/A handpiece. Once no leak was noted, Maxitrol was placed on the eye and the eye shielded and the patient was sent to the recovery room uneventfully. RIVAS/TEGAN RINALDI: Blas TID: [id number]
== END 2021-06-23 12:38 | disposition home or self-care (01) ==
LOC: SURG 09:20
PROVIDERS: ATTEND Ophthalmology
DX: E11.36 Type 2 diabetes mellitus with diabetic cataract (principal); H25.89 Other age-related cataract; I10 Essential (primary) hypertension; I48.91 Unspecified atrial fibrillation; E78.00 Pure hypercholesterolemia, unspecified; K21.9 Gastro-esophageal reflux disease without esophagitis; F41.9 Anxiety disorder, unspecified; Z86.73 Personal history of transient ischemic attack (TIA), and cerebral infarction without residual deficits; Z79.899 Other long term (current) drug therapy; Z98.890 Other specified postprocedural states; Z79.82 Long term (current) use of aspirin; Z79.84 Long term (current) use of oral hypoglycemic drugs; Z87.891 Personal history of nicotine dependence
CPT/HCPCS: 66984; 82962; A4930; J0171; J0690; J1580; J3490; V2632

== ENCOUNTER 2021-07-04 13:58 | Emergency (ER) | payer MEDICARE ==
[~2021-07-04] VITALS: Ht 170.2 cm; Wt 86.2 kg
[~2021-07-04 13:58] MED LIST changes: -BALANCED SALT IRRIG OPHTH SOLN 15 ML BOTTLE. ONE; -CHONDROIT-SOD-HYALURONATE KIT. ONE; -CHONDROITIN-SOD-HYALURONATE 0.5 ML DISP.SYRIN. ONE; -CIPROFLOXACIN 0.3% OPHTH SOLUTION 5ML BOTTLE. OS ONE; -CYCLOPENTOLATE 1% OPHTH SOLUTION 2ML BOTTLE. OS SCH; -HYDROmorphone 2 MG/ML INJ. IVP PRN; -IV RINGERS,LACTATED 1000ML 1,000 ML IV SCH; -LIDOCAINE 1%/PHENYLEPH 1.5% PF OPHTH 1 ML VIAL. ONE; -LIDOCAINE 2% JELLY 6ML IN APPLICATOR. ONE; -LIDOCAINE 2% JELLY 6ML IN APPLICATOR. OS ONE; -MORPHINE SULFATE 2 MG/ML INJ. IVP PRN; -NEO/POLYMYX/DEXAMETH OPHTH OINTMENT 3.5GM TUBE. ONE; -PROCHLORPERAZINE 10 MG/2 ML VIAL. IVP PRN; -PROPARACAINE 0.5% OPHTH SOLUTION 15ML BOTTLE. OS ONE; -fentaNYL PF VIAL 100 MCG/2 ML VIAL IVP PRN
--- NOTE | 2021-07-04 15:56 | RAD ---
EXAM: Head CT without contrast; maxillofacial bone CT without contrast; cervical spine CT without con trast. HISTORY: Fall. Blood thinners. Pain. TECHNIQUE: Computed tomographic images of the head, maxillofacial bones and cervical spine were obtai leora without contrast. *One or more of the following individualized dose reduction techniques were utilized for this examina tion: 1. Automated exposure control. 2. Adjustment of the mA and/or kV according to patient size. 3. Use of iterative reconstruction technique. COMPARISON: MRI dated 04/26/2020. FINDINGS: Head: There is no hemorrhage. There is no mass effect or midline shift. There is no hydrocephalus. Th ere is encephalomalacia within the left parietal lobe with ex vacuo dilatation of the posterior left lateral ventricle due to chronic infarction. There is also encephalomalacia within the medial right o ccipital lobe, bilateral basal ganglia, thalami and cerebellar hemispheres due to chronic infarcts. T here are extensive white matter changes due to chronic small vessel disease. There is cerebral atroph y. There is evidence of lens surgery. There is no suspicious calvarial lesion. The temporomandibular joints are intact. Maxillofacial bones: There is a suspected accessory right maxillary ostium or a medial ostium. The ri ght ostiomeatal unit is obstructed. There is rightward nasal septal deviation. There is bony dehiscen ce along the inferior medial maxillary sinus manriquez likely due to the sequela of chronic sinusitis or postoperative in etiology. There is no acute fracture. There is periapical lucency surrounding a part ially erupted right third mandibular molar. Cervical spine: There is mild multilevel degenerative listhesis. There is degenerative endplate remod eling with disc space narrowing, osteophytosis and Schmorl's node formation at multiple levels. There is multilevel facet and uncovertebral arthropathy. There is bone demineralization. There is motion w hich limits evaluation of bony detail. The combination of degenerative changes results in moderate ri ght foraminal stenosis at C2-C3, moderate to severe right and severe left foraminal stenosis at C3-C4 , mild right and severe left foraminal stenosis C4-C5, severe bilateral foraminal stenosis at C5-C6, and mild bilateral foraminal stenosis at C6-C7. There is biapical pleural parenchymal scarring or ate lectasis. IMPRESSION: 1. No acute intracranial finding or evidence of acute maxillofacial bone or cervical spine trauma. 2. Extensive cerebral white matter changes, likely due to chronic small vessel disease. 3. Cerebral atrophy and multiple chronic cerebral and cerebellar infarcts. 4. Multilevel degenerative change involving the cervical spine, resulting in significant stenosis at the aforementioned levels. 5. Bone demineralization. 6. Chronic paranasal sinus disease, described above. Electronically signed by: Shikha Owens MD (07/04/2021 3:54 PM) [id number]
--- NOTE | 2021-07-04 16:29 | PHYS DOC ---
Past Medical History Past Medical History: A-Fib, CAD, CVA, Diabetes-Type II, Stroke, Other Additional Past Medical Histor: osteoarthritis,back pain,cleft lip,poor historian, CARDIAC VALVE REPLACEMEN Past Surgical History: Knee Replacement, Other Additional Past Surgical Histo: aoritic valve surgery, bilat shoulder surgery, bilat knee surgery Smoking Status: Former Smoker Additional Information: QUIT ABOUT 20 YEARS AGO Alcohol Use: None Drug Use: None Adult General Chief Complaint Chief Complaint: MECHANICAL FALL HPI HPI The patient is an 80-year-old male who presents for evaluation of injury sustained in a fall down several stairs about 4 days ago. Patient states he tripped and fell down some stairs in his home, striking his head on the ground. No loss of consciousness, vomiting or amnesia to events. Denies any pain anywhere, including to head, neck, chest wall, abdomen, pelvis, back, arms or legs. He is alert, pleasantly and appropriately interactive and ambulatory with a narrow, steady gait. It appears that his primary doctor's office sent him over for evaluation of the head injury as he is on Eliquis and has a right periorbital contusion which is healing in which he states he sustained when he fell. Review of Systems Review of Systems A 12 point review of systems was completed and was negative except where noted in HPI above. Allergies Allergies Allergies Coded Allergies Type Severity Reaction Last Updated Verified No Known Drug Allergies 07/04/21 No Physical Exam Physical Exam 80-year-old male appearing nontoxic and in no acute distress. Head is normocephalic and with a right periorbital contusion, healing and affecting only the inferior and medial aspects of the orbit. Neck is supple and nontender. No stiffness/rigidity/meningismus seen and patient ranges neck fully in all dimensions out discomfort or distress. Oropharynx is moist. Lungs are clear to auscultation at all stations. There is a normal S1 and S2 without rubs or gallops and capillary refill is appropriate, less than 2 seconds globally. Abdomen is soft, nontender and nondistended. Skin is warm and dry without cyanosis, clubbing or edema. Psychiatrically, the patient demonstrates appropriate mood and affect and is alert. Neurologically, cranial nerves II to XII are intact and there are no lateralizing deficits seen. Speech is normal. Language is normal. Coordination is normal. There is no dysmetria with [id number]-gy-[id number] or [id number] bilaterally. Strength is 5 out of 5 in all joints of bilateral upper and lower extremities. Sensation intact light touch in bilateral upper and lower extremities. Patient ambulates with a narrow, steady, non-ataxic gait here in the emergency department and is alert and oriented x4. Current Patient Data Vital Signs Vital Signs Date Time Temp Pulse Resp B/P (MAP) Pulse Ox O2 Delivery O2 Flow Rate FiO2 07/04/21 15:27 82 16 95 Room Air 07/04/21 14:06 97.8 141/83 (102) 97.8 Lab Values Laboratory Tests Test 07/04/21 14:40 Glucose (Fingerstick) 280 mg/dL (70-99) H EKG EKG [] Radiology/Procedures Radiology/Procedures EXAM: Head CT without contrast; maxillofacial bone CT without contrast; cervical spine CT without contrast. HISTORY: Fall. Blood thinners. Pain. TECHNIQUE: Computed tomographic images of the head, maxillofacial bones and cervical spine were obtained without contrast. *One or more of the following individualized dose reduction techniques were utilized for this examination: 1. Automated exposure control. 2. Adjustment of the mA and/or kV according to patient size. 3. Use of iterative reconstruction technique. COMPARISON: MRI dated 04/26/2020. FINDINGS: Head: There is no hemorrhage. There is no mass effect or midline shift. There is no hydrocephalus. There is encephalomalacia within the left parietal lobe with ex vacuo dilatation of the posterior left lateral ventricle due to chronic infarction. There is also encephalomalacia within the medial right occipital lobe, bilateral basal ganglia, thalami and cerebellar hemispheres due to chronic infarcts. There are extensive white matter changes due to chronic small vessel disease. There is cerebral atrophy. There is evidence of lens surgery. There is no suspicious calvarial lesion. The temporomandibular joints are intact. Maxillofacial bones: There is a suspected accessory right maxillary ostium or a medial ostium. The right ostiomeatal unit is obstructed. There is rightward malcom al septal deviation. There is bony dehiscence along the inferior medial maxillary sinus manriquez likely due to the sequela of chronic sinusitis or postoperative in etiology. There is no acute fracture. There is periapical lucency surrounding a partially erupted right third mandibular molar. Cervical spine: There is mild multilevel degenerative listhesis. There is degenerative endplate remodeling with disc space narrowing, osteophytosis and Schmorl's node formation at multiple levels. There is multilevel facet and uncovertebral arthropathy. There is bone demineralization. There is motion which limits evaluation of bony detail. The combination of degenerative changes results in moderate right foraminal stenosis at C2-C3, moderate to severe right and severe left foraminal stenosis at C3-C4, mild right and severe left foraminal stenosis C4-C5, severe bilateral foraminal stenosis at C5-C6, and mild bilateral foraminal stenosis at C6-C7. There is biapical pleural parenchymal scarring or atelectasis. IMPRESSION: 1. No acute intracranial finding or evidence of acute maxillofacial bone or cervical spine trauma. 2. Extensive cerebral white matter changes, likely due to chronic small vessel disease. 3. Cerebral atrophy and multiple chronic cerebral and cerebellar infarcts. 4. Multilevel degenerative change involving the cervical spine, resulting in significant stenosis at the aforementioned levels. 5. Bone demineralization. 6. Chronic paranasal sinus disease, described above. Electronically signed by: Shikha Bean MD (07/04/2021 3:54 PM) [id number] DICTATED and SIGNED BY: SHIKHA BEAN MD DATE: 07/04/21 [id number] 0 Course & Med Decision Making Course & Med Decision Making Head, C-spine and maxillofacial imaging are without any evidence of acute traumatic injury or other acute process. Patient is asymptomatic as noted ab ove. No other signs of injury anywhere on his body; vital signs and clinical examination are reassuring. In view of this well-appearing elderly patient with healing contusion to his face but no signs of any significant injury, will discharge home to follow-up closely with primary care. Patient understands that if he feels worse instead of better or develops other new symptoms of concern that he should return to the emergency department immediately for reevaluation. All questions are answered. Dragon Disclaimer Dragon Disclaimer This electronic medical record was generated, in whole or in part, using a voice recognition dictation system. Departure Departure Impression: Primary Impression: Fall down stairs Additional Impression: Periorbital contusion of right eye Disposition: HOME / SELF CARE / HOMELESS Condition: STABLE Referrals: ROXIE CORNELIUS MD (PCP) Patient Instructions: Fall Prevention and Home Safety Additional Instructions: Follow-up very closely with your primary care doctor in the office in the next 2 to 4 days for a reevaluation of your symptoms and a discussion of next best steps in care. Drink plenty of fluids to stay hydrated and get plenty of rest. Return to the emergency department right away for worsening symptoms of any kind or with any other new symptoms of concern. Problem Qualifiers Primary Impression: Fall down stairs Encounter type: initial encounter Qualified Codes: W10.8XXA - Fall (on) (from) other stairs and steps, initial encounter Additional Impression: Periorbital contusion of right eye Encounter type: initial encounter Qualified Codes: S05.11XA - Contusion of eyeball and orbital tissues, right eye, initial encounter ANJU SARGENT MD Jul 04, 2021 16:29
[2021-07-04 16:35] VITALS: BP 160/79
== END 2021-07-04 16:38 | disposition home or self-care (01) ==
LOC: ER 13:58
DX: S00.11XA Contusion of right eyelid and periocular area, initial encounter (principal); R51.9 Headache, unspecified; M54.2 Cervicalgia; I48.91 Unspecified atrial fibrillation; I25.10 Atherosclerotic heart disease of native coronary artery without angina pectoris; E11.9 Type 2 diabetes mellitus without complications; Z86.73 Personal history of transient ischemic attack (TIA), and cerebral infarction without residual deficits; Z87.891 Personal history of nicotine dependence; W10.8XXA Fall (on) (from) other stairs and steps, initial encounter; Y93.89 Activity, other specified; Y92.89 Other specified places as the place of occurrence of the external cause; Y99.8 Other external cause status
CPT/HCPCS: 70450; 70486; 72125; 82962; 99284-25